=== PATIENT | female | born 1940 | race Caucasian/White ===

== ENCOUNTER → 2017-01-25 | Outpatient (REF) | payer OTHER ==
[~2017-01-25] MED LIST: CARV12.5 PO; LISI20TA3 PO; LOVA40TA PO; MULTCAP8 PO
== END ==
LOC: M SFHCLERA 11:14
PROVIDERS: ATTEND Family Medicine
DX: R31.21 Asymptomatic microscopic hematuria (principal)
CPT/HCPCS: 81001; 87086; 88108; G0463

== ENCOUNTER → 2017-02-12 | Outpatient (CLI) | payer OTHER ==
[2017-02-12 13:30] LABS: ANION GAP 7 MEQ/L (8-16); BLOOD UREA NITROGEN 24 MG/DL (7-18); CALCIUM LEVEL 8.8 MG/DL (8.8-10.2); CARBON DIOXIDE LEVEL 32 MEQ/L (21-32); CHLORIDE LEVEL 102 MEQ/L (98-107); CREATININE FOR GFR 0.92 MG/DL (0.55-1.02); GLOMERULAR FILTRATION RATE > 60.0 (>39); GLUCOSE, FASTING 110 MG/DL (83-110); POTASSIUM SERUM 4.2 MEQ/L (3.5-5.1); SODIUM LEVEL 141 MEQ/L (136-145)
== END ==
LOC: M SMT 10:38
PROVIDERS: ATTEND Specialist
DX: R31.21 Asymptomatic microscopic hematuria (principal)
CPT/HCPCS: 36415; 80048; G0463

== ENCOUNTER → 2017-03-17 | Outpatient (CLI) | payer OTHER ==
[~2017-03-17] MED LIST changes: +ISOVUE-370 76% 100ML VIAL (Q9967) As Ordered ONE
--- NOTE | 2017-03-19 19:43 | REP ---
CT ABDOMEN AND PELVIS: REASON: Asymptomatic microscopic hematuria. COMPARISON: 02/27/2014 which showed no abnormalities. An incidental 5 mm sized cyst was seen in lower pole of the right kidney. CONTRAST UTILIZED: 100 mL [id number]. The examination is dated 03/17/2017, obtained at 8 a.m., however, it has been brought to my attention for the first time for interpretation today at this time. The lung bases are clear and unchanged. The precontrast enhanced portion of the exam again shows hepatic and splenic densities to be within normal limits. There is no nephroureterolithiasis, hydronephrosis, or hydroureter. There are no choleliths. There are no urinary bladder calcifications. Heavy calcific atherosclerotic changes are seen in the abdominal aorta status quo. The contrast enhanced portion of the examination shows a focal area of low density in the posterior segment of the right lobe of the liver medially which measures 1.4 cm and has increased in size from the prior exam when it measured 9 mm. It is seen only on the arterial phase imaging. The spleen, pancreas, adrenal glands, and kidneys are unchanged remaining within normal limits. There is a tiny simple right renal cyst status quo. The abdominal aorta and paraaortic regions are essentially unchanged. There is no adenopathy. There is no free fluid or free air in the abdomen. The bowel loops and their mesenteries are within normal limits. CT PELVIS: There is no free fluid or free air. There is no mass or adenopathy. There are bilateral pelvic phleboliths. Bone window technique throughout the examination shows spinal and hip degenerative changes status quo. IMPRESSION: 1. Enlarging low density lesion seen in the posterior segment of the right lobe of the liver as described above of uncertainly etiology. This is not a simple cyst. Pre- and post- gadolinium enhanced hepatic MRI is recommended. 2. Other findings as described above. Signed by Rober Barron DO 03/19/2017 07:51 P
== END ==
LOC: M RAD 07:42
PROVIDERS: ATTEND Specialist
DX: R31.21 Asymptomatic microscopic hematuria (principal)
CPT/HCPCS: 74178; Q9967

== ENCOUNTER → 2017-04-14 | Outpatient (CLI) | payer OTHER ==
[~2017-04-14] MED LIST changes: -ISOVUE-370 76% 100ML VIAL (Q9967) As Ordered ONE; +LIDOCAINE 1% MDV 20ML VIAL As Ordered ONE
--- NOTE | 2017-04-14 22:05 | REP ---
Clinical: Liver lesion. Technique: Gunderson scale and color evaluation using curved array transducer. Findings: Directed ultrasound examination in conjunction with recent CT for comparison demonstrates a 1.6 x 1.0 x 1.2 cm hemangioma in the medial posterior aspect of the right lobe. Impression: Lesion on CT corresponds to hemangioma and requires no further evaluation. Signed by Pedro Blas MD 04/14/2017 09:56 P
== END ==
LOC: M RADPRO 07:47
PROVIDERS: ATTEND Family Medicine
DX: K76.89 Other specified diseases of liver (principal)

== ENCOUNTER → 2017-07-12 | Outpatient (CLI) | payer OTHER ==
[~2017-07-12] MED LIST changes: -LIDOCAINE 1% MDV 20ML VIAL As Ordered ONE
--- NOTE | 2017-07-12 12:06 | REPMRS ---
Patient History The patient states she had a clinical breast exam in Patient is postmenopausal. No known family history of cancer. Digital Woman Screen Mammo: July 12, 2017 - Exam #: [id number] Bilateral CC and MLO view(s) were taken. Technologist: Zenaida Chaudhry, Technologist Prior study comparison: September 12, 2015, digital woman screen mammo performed at [facility] to [facility]. February 08, 2015, digital woman screen mammo performed at [facility] to [facility]. December 03, 2010, bilateral digital woman screen mammo performed at [facility] to [facility]. FINDINGS: There are scattered fibroglandular densities. There has been no change in the appearance of the mammogram from the prior studies. There is a mild amount of scattered fibroglandular density which is fairly symmetric. There is no interval development of dominant mass, architectural distortion, or clustered microcalcification suggestive of malignancy. ASSESSMENT: BI-RADS/ACR category 1 mammogram. Negative. Recommendation Routine screening mammogram in 1 year (for women over age 40). This mammogram was interpreted with the aid of an FDA-approved computer-aided dectection system. Electronically Signed By: Amauri Ontiveros MD 07/12/17 0027
== END ==
LOC: M WHC 08:42
PROVIDERS: ATTEND Nurse Practitioner Family
DX: Z12.31 Encounter for screening mammogram for malignant neoplasm of breast (principal); Z78.0 Asymptomatic menopausal state
CPT/HCPCS: G0202; G0463

== ENCOUNTER → 2017-09-08 | Outpatient (CLI) | payer OTHER ==
--- NOTE | 2017-09-08 10:55 | REP ---
LEFT SHOULDER SERIES: Four views of the left shoulder are performed. There is no acute fracture or dislocation. There is moderate narrowing and spurring at the acromioclavicular and glenohumeral joints with mild subchondral sclerosis. IMPRESSION: Moderate degenerative changes. Signed by Asim Gunderson MD 09/08/2017 04:42 P
== END ==
LOC: M LRY 10:16
PROVIDERS: ATTEND Family Medicine
DX: M19.012 Primary osteoarthritis, left shoulder (principal); G89.29 Other chronic pain
CPT/HCPCS: 73030; G0463

== ENCOUNTER → 2017-12-20 | Outpatient (REF) | payer OTHER ==
[2017-12-20 14:37] LABS: HEMATOCRIT 35.9 % (36.0-47.0); HEMOGLOBIN 11.7 g/dl (12.0-16.0); MEAN CORPUSCULAR HEMOGLOBIN 28.5 pg (27.0-33.0); MEAN CORPUSCULAR HGB CONC 32.6 g/dl (32.0-36.5); MEAN CORPUSCULAR VOLUME 87.3 fl (80.0-96.0); PLATELET COUNT, AUTOMATED 239 10^3/uL (150-450); RED BLOOD COUNT 4.11 10^6/uL (4.00-5.40); RED CELL DISTRIBUTION WIDTH 14.1 % (11.5-14.5); WHITE BLOOD COUNT 7.4 10^3/uL (4.0-10.0)
[2017-12-20 14:53] LABS: ESTIMATED AVERAGE GLUCOSE 111 MG/DL (60-110); HEMOGLOBIN A1c 5.5 %
[2017-12-20 14:55] LABS: ALBUMIN 3.7 GM/DL (3.2-5.2); ALBUMIN/GLOBULIN RATIO 1.23 (1.00-1.93); ALKALINE PHOSPHATASE 62 U/L (45-117); ALT/SGPT 19 U/L (12-78); ANION GAP 6 MEQ/L (8-16); AST/SGOT 15 U/L (7-37); BILIRUBIN,TOTAL 0.3 MG/DL (0.2-1.0); BLOOD UREA NITROGEN 20 MG/DL (7-18); CARBON DIOXIDE LEVEL 32 MEQ/L (21-32); CHLORIDE LEVEL 102 MEQ/L (98-107); CHOLESTEROL LEVEL 218 MG/DL (<200); CHOLESTEROL RISK RATIO 4.113 (<5); CREATININE FOR GFR 0.88 MG/DL (0.55-1.30); GLOMERULAR FILTRATION RATE > 60.0 (>39); GLUCOSE, FASTING 94 MG/DL (70-100); HDL CHOLESTEROL 53 MG/DL (>40); LDL CHOLESTEROL 128.4 MG/DL (<100); NON-HDL-C 165 MG/DL; POTASSIUM SERUM 3.7 MEQ/L (3.5-5.1); SODIUM LEVEL 140 MEQ/L (136-145); TOTAL PROTEIN 6.7 GM/DL (6.4-8.2); TRIGLYCERIDES LEVEL 183 MG/DL (<150)
[2017-12-20 15:07] LABS: CREATININE, URINE 36.5 MG/DL; MALB URINE SIEMENS 10.6 MG/L
== END ==
LOC: M SFHCLERA 10:42
DX: I10 Essential (primary) hypertension (principal); Z79.82 Long term (current) use of aspirin; Z79.899 Other long term (current) drug therapy
CPT/HCPCS: 84443

== ENCOUNTER 2018-03-04 06:48 | Day surgery (SDC) | payer OTHER ==
[2018-03-04] MEDS: NS 1,000 ML IV (07:45)
[2018-03-04] MEDS ORDERED: LIDOCAINE 2% INJ 100 MG/5 ML SDV (FOR ANES.) As Ordered (08:49)
[2018-03-04] MEDS ORDERED: PROPOFOL 200 MG/20 ML VIAL As Ordered (08:49)
== END 2018-03-04 09:37 | disposition home or self-care (01) ==
LOC: M OPP 06:48
DX: Z12.11 Encounter for screening for malignant neoplasm of colon (principal); K57.30 Diverticulosis of large intestine without perforation or abscess without bleeding; K64.8 Other hemorrhoids; I10 Essential (primary) hypertension; E78.00 Pure hypercholesterolemia, unspecified; K21.9 Gastro-esophageal reflux disease without esophagitis; K59.00 Constipation, unspecified; J45.909 Unspecified asthma, uncomplicated; M19.011 Primary osteoarthritis, right shoulder; M19.012 Primary osteoarthritis, left shoulder; Z79.82 Long term (current) use of aspirin; Z79.899 Other long term (current) drug therapy; Z88.0 Allergy status to penicillin; Z98.41 Cataract extraction status, right eye; Z98.42 Cataract extraction status, left eye; Z90.710 Acquired absence of both cervix and uterus; Z90.89 Acquired absence of other organs
CPT/HCPCS: G0121

== ENCOUNTER → 2018-06-14 | Outpatient (REF) | payer OTHER ==
[2018-06-14 11:43] LABS: BASO # 0.1 10^3/uL (0.0-0.2); BASO % 0.8 % (0.0-1.0); EOS # 0.2 10^3/uL (0.0-0.50); EOS % 2.5 % (0.0-3.0); HEMATOCRIT 33.3 % (36.0-47.0); HEMOGLOBIN 10.9 g/dl (12.0-15.5); IMMATURE GRANULOCYTE % 0.3 % (0-3.0); LYMPH % 25.6 % (24.0-44.0); MEAN CORPUSCULAR HEMOGLOBIN 29.1 pg (27.0-33.0); MEAN CORPUSCULAR HGB CONC 32.7 g/dl (32.0-36.5); MONO # 0.7 10^3/uL (0.0-0.8); MONO % 8.8 % (0.0-5.0); PLATELET COUNT, AUTOMATED 264 10^3/uL (150-450); RED BLOOD COUNT 3.74 10^6/uL (4.00-5.40); RED CELL DISTRIBUTION WIDTH 13.7 % (11.5-14.5)
[2018-06-14 12:04] LABS: ESTIMATED AVERAGE GLUCOSE 120 MG/DL (60-110); HEMOGLOBIN A1c 5.8 %
[2018-06-14 12:35] LABS: ALBUMIN 3.4 GM/DL (3.2-5.2); ALBUMIN/GLOBULIN RATIO 1.03 (1.00-1.93); ALKALINE PHOSPHATASE 62 U/L (45-117); ALT/SGPT 18 U/L (12-78); ANION GAP 9 MEQ/L (8-16); AST/SGOT 14 U/L (7-37); BILIRUBIN,TOTAL 0.4 MG/DL (0.2-1.0); BLOOD UREA NITROGEN 25 MG/DL (7-18); CALCIUM LEVEL 8.6 MG/DL (8.8-10.2); CARBON DIOXIDE LEVEL 31 MEQ/L (21-32); CHLORIDE LEVEL 104 MEQ/L (98-107); CHOLESTEROL LEVEL 163 MG/DL (<200); CREATININE FOR GFR 1.25 MG/DL (0.55-1.30); GLOMERULAR FILTRATION RATE 44.2 (>39); GLUCOSE, FASTING 93 MG/DL (70-100); HDL CHOLESTEROL 50 MG/DL (>40); LDL CHOLESTEROL 83.8 MG/DL (<100); NON-HDL-C 113 MG/DL; POTASSIUM SERUM 3.9 MEQ/L (3.5-5.1); SODIUM LEVEL 144 MEQ/L (136-145); TOTAL PROTEIN 6.7 GM/DL (6.4-8.2); TRIGLYCERIDES LEVEL 146 MG/DL (<150)
== END ==
LOC: M SFHCLERA 10:07
DX: I10 Essential (primary) hypertension (principal); Z79.899 Other long term (current) drug therapy; Z23 Encounter for immunization
CPT/HCPCS: 84443

== ENCOUNTER → 2018-12-12 | Outpatient (REF) | payer MEDICARE ==
[~2018-12-12] MED LIST changes: +AMLO2.5T3; +ASPI1TAB PO; +CALC1TAB26 PO; +CRANCAP10 PO; +GARL1000 PO; +IRON27TA2 PO; +POTA99TA PO; +VENTAER INH; +VITA100072 PO
[2018-12-12 12:39] LABS: CALCIUM LEVEL 8.7 MG/DL (8.8-10.2); CREATININE FOR GFR 0.97 MG/DL (0.55-1.30); GLOMERULAR FILTRATION RATE 59.3 (>39); POTASSIUM SERUM 3.9 MEQ/L (3.5-5.1)
[2018-12-12 12:43] LABS: BASO # 0.1 10^3/uL (0.0-0.2); BASO % 0.8 % (0.0-1.0); EOS # 0.2 10^3/uL (0.0-0.50); EOS % 2.2 % (0.0-3.0); HEMATOCRIT 33.4 % (36.0-47.0); HEMOGLOBIN 11.1 g/dl (12.0-15.5); LYMPH # 1.7 10^3/uL (1.5-4.5); MEAN CORPUSCULAR HEMOGLOBIN 29.7 pg (27.0-33.0); MEAN CORPUSCULAR HGB CONC 33.2 g/dl (32.0-36.5); MEAN CORPUSCULAR VOLUME 89.3 fl (80.0-96.0); MONO # 0.6 10^3/uL (0.0-0.8); MONO % 7.5 % (0.0-5.0); NEUTROPHILS # 4.8 10^3/uL (1.8-7.7); NEUTROPHILS % 66.2 % (36.0-66.0); PLATELET COUNT, AUTOMATED 202 10^3/uL (150-450); RED BLOOD COUNT 3.74 10^6/uL (4.00-5.40); WHITE BLOOD COUNT 7.3 10^3/uL (4.0-10.0)
== END ==
LOC: M SFHCLERA 09:43
PROVIDERS: ATTEND Family Medicine
DX: I10 Essential (primary) hypertension (principal); D64.9 Anemia, unspecified
CPT/HCPCS: 80048; 85025; 90682; G0008; G0463

== ENCOUNTER → 2019-01-12 | Outpatient (CLI) | payer MEDICARE ==
--- NOTE | 2019-01-12 10:21 | REP ---
Clinical: Cough. Technique: PA and lateral. Comparison: 06/18/2016. Findings: Mediastinum and cardiac silhouette are stable. The lung millan demonstrate chronic interstitial changes. Superimposed left infrahilar and right basilar atelectasis are suspected and suggest bronchitis. No effusion. No pneumothorax. Skeletal structures demonstrate age-related changes. Impression: Subtle increased opacities involving the left infrahilar and right basilar regions suggests bronchitis. Electronically Signed by Pedro Blas MD 01/12/2019 10:12 A
== END ==
LOC: M LRY 09:47
PROVIDERS: ATTEND Nurse Practitioner Family
DX: R91.8 Other nonspecific abnormal finding of lung field (principal); R05 Cough

== ENCOUNTER → 2019-02-02 | Outpatient (REF) | payer MEDICARE ==
[~2019-02-02] MED LIST changes: -ASPI1TAB PO; +ASPI81TA26 PO; +VITA100018 PO; -VITA100072 PO
[2019-02-02 20:29] LABS: CALCIUM LEVEL 8.6 MG/DL (8.8-10.2); CREATININE FOR GFR 1.34 MG/DL (0.55-1.30); GLOMERULAR FILTRATION RATE 40.8 (>39); POTASSIUM SERUM 3.9 MEQ/L (3.5-5.1)
[2019-02-02 20:34] LABS: BASO # 0.1 10^3/uL (0.0-0.2); BASO % 0.7 % (0.0-1.0); EOS # 0.2 10^3/uL (0.0-0.50); EOS % 2.1 % (0.0-3.0); HEMATOCRIT 32.5 % (36.0-47.0); HEMOGLOBIN 10.4 g/dl (12.0-15.5); LYMPH # 2.7 10^3/uL (1.5-4.5); LYMPH % 29.4 % (24.0-44.0); MEAN CORPUSCULAR HEMOGLOBIN 28.8 pg (27.0-33.0); MONO # 0.7 10^3/uL (0.0-0.8); MONO % 7.4 % (0.0-5.0); NEUTROPHILS # 5.4 10^3/uL (1.8-7.7); NEUTROPHILS % 60.2 % (36.0-66.0); PLATELET COUNT, AUTOMATED 250 10^3/uL (150-450); RED BLOOD COUNT 3.61 10^6/uL (4.00-5.40)
== END ==
LOC: M SFHCLERA 14:38
PROVIDERS: ATTEND Family Medicine
DX: I10 Essential (primary) hypertension (principal)
CPT/HCPCS: 80048; 85025; 93005; G0463

== ENCOUNTER → 2019-02-06 | Outpatient (CLI) | payer MEDICARE ==
[~2019-02-06] MED LIST changes: +ASPI1TAB PO; -ASPI81TA26 PO; -VITA100018 PO; +VITA100072 PO
--- NOTE | 2019-02-06 14:37 | REP ---
DUPLEX CAROTID SONOGRAPHY: HISTORY: Hypertension. FINDINGS: Antegrade flow was observed in the left vertebral artery. Some lower velocity antegrade flow was observed in the right vertebral artery. RIGHT CAROTID: The right common carotid artery shows mixed plaquing. There is moderate mixed plaquing in the bulb and proximal ICA. Elevated systolic and diastolic flow velocities are seen in the right ICA on color Doppler interrogation. VELOCITY CHART RIGHT CAROTID: PSV EDV Right CCA 74 cm/s Right ICA 236 cm/s 81 cm/s Right ECA 96 cm/s Right ICA/CCA ratio elevated 3.2 IMPRESSION: Doppler findings consistent with 80 - 99% category narrowing in the right ICA by Doppler velocity criteria. Dampened flow in the right ECA. LEFT CAROTID: Left common carotid artery shows some mild mixed plaquing. Mild mixed plaquing is seen in the bulb and proximal ICA. Incidental note is made of a 1.1 cm hypoechoic complex left thyroid nodule. VELOCITY CHART LEFT CAROTID: PSV EDV Left CCA 68 cm/s Left ICA 97 cm/s 24 cm/s Left ECA 64 cm/s Left ICA/CCA ratio normal 1.4. IMPRESSION: 16-49% category narrowing the left ICA by Doppler velocity criteria. 1.1 cm left thyroid nodule. Electronically Signed by Delvin Ontiveros MD 02/06/2019 02:50 P
== END ==
LOC: M RAD 11:25
PROVIDERS: ATTEND Family Medicine
DX: I65.23 Occlusion and stenosis of bilateral carotid arteries (principal); E04.1 Nontoxic single thyroid nodule; I10 Essential (primary) hypertension

== ENCOUNTER → 2019-02-10 | Outpatient (REF) | payer MEDICARE ==
[2019-02-10 17:11] LABS: FREE T4 1.11 NG/DL (0.76-1.46); THYROID STIMULATING HORMONE 1.8 uIU/ML (0.358-3.740)
== END ==
LOC: M SFHCLERA 13:44
PROVIDERS: ATTEND Family Medicine
DX: E04.1 Nontoxic single thyroid nodule (principal)

== ENCOUNTER → 2019-03-10 | Outpatient (REF) | payer MEDICARE ==
[~2019-03-10] MED LIST changes: -ASPI1TAB PO; +ASPI81TA26 PO; +VITA100018 PO; -VITA100072 PO
== END ==
LOC: M SFHCLERA 09:58
PROVIDERS: ATTEND Family Medicine
DX: E78.5 Hyperlipidemia, unspecified (principal); R79.89 Other specified abnormal findings of blood chemistry; D64.9 Anemia, unspecified

== ENCOUNTER → 2019-03-10 | Outpatient (REF) | payer MEDICARE ==
[2019-03-10 11:33] LABS: BASO # 0.1 10^3/uL (0.0-0.2); BASO % 0.8 % (0.0-1.0); EOS # 0.2 10^3/uL (0.0-0.50); EOS % 2.7 % (0.0-3.0); HEMATOCRIT 32.5 % (36.0-47.0); HEMOGLOBIN 10.6 g/dl (12.0-15.5); LYMPH # 1.8 10^3/uL (1.5-4.5); LYMPH % 27.4 % (24.0-44.0); MEAN CORPUSCULAR HEMOGLOBIN 29.6 pg (27.0-33.0); MEAN CORPUSCULAR HGB CONC 32.6 g/dl (32.0-36.5); MEAN CORPUSCULAR VOLUME 90.8 fl (80.0-96.0); MONO # 0.6 10^3/uL (0.0-0.8); MONO % 8.7 % (0.0-5.0); NEUTROPHILS # 3.9 10^3/uL (1.8-7.7); NEUTROPHILS % 60.1 % (36.0-66.0); PLATELET COUNT, AUTOMATED 203 10^3/uL (150-450); RED BLOOD COUNT 3.58 10^6/uL (4.00-5.40); WHITE BLOOD COUNT 6.6 10^3/uL (4.0-10.0)
[2019-03-10 12:17] LABS: CHOLESTEROL RISK RATIO 2.903 (<5); CREATININE FOR GFR 1.05 MG/DL (0.55-1.30); GLOMERULAR FILTRATION RATE 54.1 (>39); PERCENT SATURATION 17.1 % (13.2-45.0); POTASSIUM SERUM 3.7 MEQ/L (3.5-5.1)
== END ==
LOC: M SFHCLERA 09:58
PROVIDERS: ATTEND Family Medicine
DX: E78.5 Hyperlipidemia, unspecified (principal); R79.89 Other specified abnormal findings of blood chemistry; D64.9 Anemia, unspecified

== ENCOUNTER → 2019-06-12 | Outpatient (REF) | payer MEDICARE ==
[2019-06-12 17:08] LABS: BASO # 0.1 10^3/uL (0.0-0.2); BASO % 0.7 % (0.0-1.0); EOS # 0.2 10^3/uL (0.0-0.50); EOS % 2.6 % (0.0-3.0); HEMATOCRIT 34.6 % (36.0-47.0); LYMPH # 2.1 10^3/uL (1.5-4.5); LYMPH % 27.5 % (24.0-44.0); MEAN CORPUSCULAR HEMOGLOBIN 28.7 pg (27.0-33.0); MEAN CORPUSCULAR HGB CONC 31.8 g/dl (32.0-36.5); MEAN CORPUSCULAR VOLUME 90.3 fl (80.0-96.0); MONO # 0.7 10^3/uL (0.0-0.8); MONO % 9.1 % (0.0-5.0); NEUTROPHILS # 4.6 10^3/uL (1.8-7.7); NEUTROPHILS % 59.7 % (36.0-66.0); PLATELET COUNT, AUTOMATED 203 10^3/uL (150-450); RED BLOOD COUNT 3.83 10^6/uL (4.00-5.40); WHITE BLOOD COUNT 7.7 10^3/uL (4.0-10.0)
[2019-06-12 17:10] LABS: CALCIUM LEVEL 8.9 MG/DL (8.8-10.2); CREATININE FOR GFR 0.98 MG/DL (0.55-1.30); GLOMERULAR FILTRATION RATE 58.4 (>39); POTASSIUM SERUM 3.8 MEQ/L (3.5-5.1)
== END ==
LOC: M SFHCLERA 10:43
PROVIDERS: ATTEND Family Medicine
DX: I10 Essential (primary) hypertension (principal)
CPT/HCPCS: 80048; 85025; G0463

== ENCOUNTER 2019-07-05 05:58 | Observation (INO) | payer MEDICARE ==
--- NOTE | 2019-07-04 23:37 | HPE ---
DATE OF SCHEDULED ADMISSION: 07/05/2019 This is a preoperative history and physical. CHIEF COMPLAINT: "My carotid is blocked." HISTORY OF THE PRESENT ILLNESS: Ms King is a very pleasant 79-year-old patient who underwent a carotid duplex and was found to have a significant right internal carotid artery stenosis. Today we discussed the natural history of carotid disease, symptoms of transient ischemic attack (TIA) and stroke, best medical management, and surgical interventions to be performed if needed. We reviewed the patient's carotid duplex in clinic today. Her left internal carotid artery is less than 50% stenosis, with a peak systolic velocity/end diastolic velocity (PSV/EDV) of 97/24, and both vertebrals are antegrade. Although the report says that the patient has an 80-99% stenosis of her right internal carotid artery, I do not believe she meets criteria for this. Her peak systolic velocity over end diastolic velocity in the right internal carotid artery is 236/81, which does put her in the greater than 70% range, but factoring this in with her internal carotid artery/common carotid artery (ICA/CCA) ratio of 3.2, puts her in the 50-70% range. Based on both criteria, I think she is likely about 70-75% stenotic on the right. This still meets criteria to discuss right carotid endarterectomy. Currently, the patient is asymptomatic. She denies TIA or stroke symptoms We then discussed the risks, benefits, and alternatives to carotid endarterectomy. After extensive counseling, the patient is agreeable to proceed with right carotid endarterectomy and informed consent was obtained. She is taking aspirin and statin, and we will add Plavix, which she should continue for 30 days perioperatively. All questions were answered. PAST MEDICAL HISTORY: Hyperlipidemia, hypertension, chronic obstructive pulmonary disease (COPD). PAST SURGICAL HISTORY: Hysterectomy. FAMILY HISTORY: Coronary artery disease and cancer. SOCIAL HISTORY: Patient denies tobacco, alcohol, or illicit drug use. Patient has never smoked cigarettes. REVIEW OF SYSTEMS: Constitutional: Denies chills, fever, weight gain and weight loss. Eyes: Denies new vision changes. Ears, Nose and Throat: Denies hearing loss, congestion, or dysphagia. Cardiovascular: Denies chest pain and palpitations. Respiratory: Reports shortness of breath on exertion, but denies cough and hemoptysis. Gastrointestinal (GI): Denies abdominal pain, constipation, diarrhea, nausea and vomiting. Musculoskeletal: Denies myalgia, pain and trouble walking. Skin: Denies skin cancer, rash and wound. Neurologic: Denies focal deficit, headache and seizures. Psychiatric: Denies anxiety and depression. Endocrine: Denies diabetes, hyperthyroidism and hypothyroidism. Hematology and Lymph: Reports easy bruising but denies anemia. PHYSICAL EXAMINATION: Blood pressure 134/68, heart rate 56, body mass index (BMI) 25. Constitutional: Appears healthy and well developed. No signs of distress present. Head and Face: Normal on inspection. Ears, Nose and Throat: Tympanic membranes intact. External nose within normal limits. Poor dentition. Neck: Supple, right carotid bruit present, no left carotid bruit auscultated. Respiratory: No wheezing, clear to auscultation bilaterally. Cardiovascular: Rate is regular, rhythm is regular. Abdomen: Bowel sounds are positive. Abdomen is soft, nontender, nondistended. Lymphatics: No palpable or visible regional lymphadenopathy. Musculoskeletal: Gait is steady, distal pulses 2+ dorsal pedis (DP)/posterior tibial (PT). Skin: No rashes or lesions. Neurologic: Alert and oriented times three, moves all extremities equally. No focal neurologic deficits noted. Psychiatric: Pleasant and cooperative. IMAGING: Carotid duplex was reviewed with the patient in clinic today. Please see history of the present illness for relevant interpretation. All questions were answered. ASSESSMENT AND PLAN: Ms. King is a very pleasant 79-year-old patient with significant right carotid stenosis. 1. Will proceed with right carotid endarterectomy. Patient should continue aspirin and statin, and we will prescribe Plavix for 30 days perioperatively. She should not hold the Plavix or aspirin prior to surgery. 2. Patient counseled about TIA and CVA symptoms to watch for, and she should come to the emergency room if any new concerning symptoms occur. We appreciate the opportunity to participate in the care of this patient.
[~2019-07-05] VITALS: Ht 149.9 cm; Wt 59.5 kg
[2019-07-05] VITALS (15 sets, daily range): BP systolic 100–169; BP diastolic 40–78
[~2019-07-05 05:58] MED LIST changes: -AMLO2.5T3; +AMLO2.5T3 PO; +HM P99TA PO; +LISI20TA20 PO; -LISI20TA3 PO
[2019-07-05] MEDS ORDERED: THROMBIN SOLN 20,000 UNITS KIT As Ordered ONE (06:39)
[2019-07-05] MEDS ORDERED: LIDOCAINE 1% SDV INJ 30 ML VIAL As Ordered ONE (06:39)
[2019-07-05] MEDS ORDERED: HEPARIN SOD (PORCINE) 5000 UNITS/ML VIAL As Ordered ONE ×3 (06:40→09:09)
[2019-07-05] MEDS ORDERED: ROCURONIUM BROMIDE 50 MG/5 ML VIAL As Ordered ONE (07:00)
[2019-07-05] MEDS ORDERED: LIDOCAINE 2% INJ 100 MG/5 ML SDV (FOR ANES.) As Ordered ONE (07:00)
[2019-07-05] MEDS ORDERED: LR 1,000 ML IV ONE (07:00)
[2019-07-05] MEDS ORDERED: SUGAMMADEX SODIUM 500 MG/5 ML VIAL (BRIDION) As Ordered ONE (07:00)
[2019-07-05] MEDS ORDERED: PROPOFOL 200 MG/20 ML VIAL As Ordered ONE (07:00)
[2019-07-05] MEDS ORDERED: VANCOMYCIN HCL 1,000 MG, VIAL MATE ADAPTER 1 EACH in D5W 250 ML IV ONE (07:00)
[2019-07-05] MEDS ORDERED: ONDANSETRON 4MG/2ML VIAL (J2405) As Ordered ONE (07:01)
[2019-07-05] MEDS ORDERED: dexameTHASONE 4 MG/ML 1ML VIAL (J1100) As Ordered ONE (07:01)
[2019-07-05] MEDS ORDERED: MIDAZOLAM INJ 2 MG/2 ML VIAL (J2250) As Ordered ONE (07:02)
[2019-07-05] MEDS ORDERED: fentaNYL 250 MCG/5 ML INJECTION (J3010) As Ordered ONE (07:02)
[2019-07-05] MEDS ORDERED: LABETALOL HCL 100 MG/20 ML VIAL As Ordered ONE (10:20)
[2019-07-05] MEDS ORDERED: ACETAMINOPHEN TAB 650MG DOSE (2X325MG) PO PRN (10:30)
[2019-07-05] MEDS ORDERED: ONDANSETRON 4MG/2ML VIAL (J2405) IV PRN ×2 (10:30→11:00)
[2019-07-05] MEDS ORDERED: PERCOCET 5MG/325MG TAB PO PRN (10:30)
--- NOTE | 2019-07-05 10:38 | ROOPDOC ---
[facility] Report Of Operation Report of Operation DATE OF PROCEDURE: 07/05/19 PREPROCEDURE DIAGNOSES: Right carotid stenosis, asymptomatic POSTPROCEDURE DIAGNOSES: Same PROCEDURE: Right carotid endarterectomy SURGEON: Giselle Cyr MD ANESTHESIA: GETA and local INDICATION FOR PROCEDURE: Ms. King is very pleasant 79-year-old patient with approximately 70-75% right internal carotid artery stenosis, asymptomatic. We discussed the risks, benefits, and alternatives to a right carotid endarterectomy, and the patient was agreeable to proceed. We had an extensive conversation with her daughter preoperatively as well. All questions were answered and informed consent was obtained. PROCEDURE: The patient was brought to the operating room in stable condition. General anesthesia and antibiotics were administered without complication. Her right neck and chest were prepped and draped in a sterile fashion. A timeout was performed. An oblique incision was made over the anterior border of the sternocleidomastoid and carried down through the subcutaneous tissue and platysma with Bovie cautery. The external jugular vein was suture ligated and divided. Dissection continued along the anterior border of the sternocleidomastoid and the jugular vein was skeletonized proximally and distally along its medial edge within her incision. There were multiple small branches near the facial vein, and all were suture ligated and divided. We then dissected the common carotid artery proximally and distally in a vessel loop was placed. We proceeded to dissect distally over the external carotid artery and a vessel loop was placed around the superior thyroid artery and the external carotid artery. The hypoglossal nerve was identified and care was taken not to manipulate it. 5000 units of heparin was given by anesthesia and allowed to circulate. We continued our dissection distally over the internal carotid artery until we were well above the palpable plaque. A vessel loop was placed. We then secured R Vesseloops an 11 blade was used to make an arteriotomy on the common carotid artery. This was extended distally over the internal carotid artery above the area of plaque with a pot scissors. An 8 [place] shunt was flushed with heparinized saline and the distal end was inserted into the internal carotid artery with good backbleeding in the vessel loop with resecured. We then placed the proximal and into the common carotid artery and the vessel loop with resecured. Flow was confirmed through the shunt with a Doppler. The blood pressure was maintained between 140 and 160 mmHg while shunted. We then used a plaque elevator to elevate the plaque in the common carotid artery and it was transected at the distal edge of her incision. We then feathered about the plaque towards the external carotid artery which is a vertigo to give us a good endarterectomy plane. We then feathered out the plaque in the internal carotid artery which gave us a good endpoint. We then spent several minutes removing any loose intima and making sure the endarterectomy plane was clean without debris. We flushed copiously with heparinized saline. Following this, a bovine carotid patch was fashion to fit our arteriotomy and anastomosis in a running fashion with 5-0 Prolene hemostatic suture. Before the final sutures are placed, we again irrigated with heparinized saline, then removed the shunt from the internal carotid artery and allowed backbleeding, and resecured R Vesseloops. We then removed the shunt from the common carotid artery and flushed the external carotid artery, superior thyroid artery and common carotid artery. We irrigated with copious amounts of heparinized saline and our final sutures are placed in the patch. Following this, flow was restored first through the external carotid artery and superior thyroid, then the common carotid artery, then after 10 beats of the heart flow was restored to the internal carotid artery. There was a small tear in the internal carotid artery just distal to the distal end of her patch, and a 6-0 Prolene suture and a small piece of the patch used as a pledget were placed in a use stitch fashion with good hemostasis. Following this, Surgicel and gentle pressure were used for hemostasis for approximately 2 minutes. We then irrigated with copious amounts of normal saline. A small incision was made proximal to her incision on the neck and a 15 ANGEL drain was placed through this into our incision and secured with a nylon suture. The drain was placed to bulb suction. We then approximated the deep tissue with a few interrupted Vicryl sutures, and reapproximated the platysmal layer with a running Vicryl suture. The skin was closed with running subcuticular Monocryl suture. Steri-Strips and Mastisol replace the length of the wound, and a drain sponge was placed around the drain. The patient was then allowed to awaken from anesthesia and prior to leaving the operating room she was able to move all 4 extremities, stick out her tongue to command, and open her eyes. We will continue to follow her neuro exam in recovery. ESTIMATED BLOOD LOSS: Approximately 200 mL COMPLICATIONS: None DRAINS: Right neck ANGEL drain SPECIMEN: Plaque right carotid sent for pathology PLAN: We will keep the patient in ICU overnight for neurovascular checks and close blood pressure monitoring. Goal blood pressure is greater than 90 mmHg systolic and less than 140 mmHg systolic. It is okay for her to get out of bed. We need to monitor her right neck closely for hematoma. We will continue aspirin Plavix and statin in the perioperative period. If she is doing well in the morning, hemodynamically stable, and is back to her baseline level of activity, we will plan to discharge her home. GISELLE CYR MD Jul 05, 2019 10:38
[2019-07-05] MEDS ORDERED: ALBUTEROL 90 MCG/ACT 8GM HFA INHALER INH PRN (10:45)
[2019-07-05] MEDS ORDERED: hydrALAZINE INJ 20 MG/ML VIAL IV PRN (10:45)
[2019-07-05] MEDS ORDERED: LR 1,000 ML IV SCH (11:00)
[2019-07-05] MEDS ORDERED: oxyCODONE 5MG TAB PO PRN (11:00)
[2019-07-05] MEDS ORDERED: fentaNYL 100 MCG/2 ML INJECTION (J3010) IV PRN (11:00)
[2019-07-05] MEDS: CARVedilol 12.5 MG TAB PO SCH ×2 (12:21→20:57)
--- NOTE | 2019-07-05 14:24 | HPEPDOC ---
General Date of Admission Jul 05, 2019 at 05:58 Date of Service: Jul 05, [address] Cyr of Vascular Surgery Chief Complaint The patient is a 79-year-old female admitted with a reason for visit of Carotid Stenosis. History of Present Illness 79-year-old female with past medical history of hypertension, dyslipidemia, asthma, and recently found to have right internal carotid artery stenosis was admitted to [facility] following right sided carotid endarterectomy by vascular surgery. The patient denied any stroke or TIA like symptoms in the past. At this time, she states that she is feeling relatively well and denies any complaints of fevers, chills, chest pain, palpitations, abdominal pain, or any nausea/vomiting/diarrhea. The patient will be admitted under the hospitalist service for observation. Home Medications Scheduled Amlodipine Besylate (Amlodipine Besylate) 2.5 Mg Tab, 2.5 MG PO DAILY, (Reported) Aspirin (Aspirin EC) 81 Mg Tab, 81 MG PO DAILY, (Reported) Calcium Carbonate/Vitamin D3 (Calcium 600-Vit D3 800 Tablet) 1 Tab Tab, 1 TAB PO DAILY, (Reported) Carvedilol (Carvedilol) 12.5 Mg Tab, 12.5 MG PO BID, (Reported) Cyanocobalamin (Vitamin B-12) (Vitamin B-12) 1,000 Mcg Tab, 1,000 MCG PO DAILY, (Reported) Ferrous Gluconate (Iron) 27 Mg Tab, 27 MG PO DAILY, (Reported) Garlic (Garlic Oil) 2 Mg Cap, 2 MG PO DAILY, (Reported) Lisinopril/Hydrochlorothiazide (Lisinopril-Hctz 20-25 mg Tab) 1 Tab Tab, 1 TAB PO DAILY, (Reported) Lovastatin (Lovastatin) 40 Mg Tab, 40 MG PO DAILY, (Reported) Potassium Gluconate (Potassium) 99 Mg Tablet, 595 MG PO DAILY, (Reported) Scheduled PRN Albuterol Sulfate (Ventolin Hfa) 108 Mcg/Act Aer, 108 MCG INH Q4HP PRN for SOB/WHEEZING, (Reported) Allergies Coded Allergies: Penicillins (Verified Adverse Reaction, Intermediate, LEG PAIN, 03/20/19) Past Medical History Medical History As noted in HPI. Surgical History History of hysterectomy Social History * Smoker: Denies Alcohol: occationally Drugs: denies Review of Systems Other systems 10 point review of systems negative unless otherwise specified in HPI. Physical Examination General Exam: Positive: Alert, Cooperative, No Acute Distress ENT Exam: Positive: Atraumatic, Mucous membr. moist/pink Neck Exam: Positive: Other (status post right-sided carotid endarterectomy with surgical dressing noted over the incision site. ANGEL drain also noted to be draining serosanguineous fluid.) Chest Exam: Positive: Clear to auscultation, Normal air movement Heart Exam: Positive: Rate Normal, Normal S1, Normal S2 Abdomen Exam: Positive: Soft; Negative: Tenderness Extremity Exam: Negative: Tenderness, Swelling Psych Exam: Positive: Oriented x 3 Vital Signs Vital Signs Date Time Temp Pulse Resp B/P (MAP) Pulse Ox O2 Delivery O2 Flow Rate FiO2 07/05/19 12:30 72 20 158/66 (104) 99 2.0 150/69 (99) 07/05/19 11:45 97.5 Laboratory Data Labs 24H Laboratory Tests 2 07/05/19 08:16: POC pH (Misc Panel) 7.455H, POC Base Excess (Misc Panel) 8.0H, POC Saturated Percent O2 (Misc) 100H, POC pO2 (Misc Panel) 291.0H, POC pCO2 (Misc Panel) 45.3H, POC HCO3 (Misc Panel) 31.8H, POC Glucose (Misc Panel) 137H, POC Sodium (Misc Panel) 140, POC Potassium (Misc Panel) 3.4L, POC Total CO2 (Misc Panel) 33.0H, POC Ionized Calcium (Misc Panel) 4.4L, POC Hemoglobin (Calculated)(Misc) 8.8L, POC Hematocrit (Misc Panel) 26.0L Plan / VTE VTE Prophylaxis Ordered?: Yes Plan Plan Right ICA Stenosis s/p Carotid Endarterectomy Case discussed with Dr. Cyr of Vascular Surgery--We will cont to ASA, Plavix, Statin We will maintain SBP between 90 and 140 as per recommendations Cont Norvasc, Coreg, and PRN Hydralazine ordered for SBP >140 Neurochecks We will cont to monitor the patient Hypertension Systolic blood pressure goals as noted above Continue regimen as ordered Dyslipidemia Continue statin Normocytic anemia No indication for transfusion at this time History of asthma Albuterol when necessary DVT prophylaxis SCDs/TEDs, ambulation encouraged LINCOLN SEE MD Jul 05, 2019 14:24
[2019-07-05] MEDS: CALCIUM/VITAMIN D 500 MG TAB PO SCH (14:28)
[2019-07-05] MEDS: CYANOCOBALAMIN 500 MCG TAB PO SCH (14:29)
--- NOTE | 2019-07-05 17:06 | IPNPDOC ---
Date Seen The patient was seen on 07/05/19. Progress Note Postop check: Pt sitting up eating dinner, no complaints. No trouble with speech or swallowing. Small amount of swelling noted right neck. Some serosanguinous drainage on mid steristrips and 40cc serosanguinous drainage out ANGEL drain since OR. Pt has had good BP control but it is up a bit now while she is eating. RN says otherwise it has been <110 systolic. I do want consistent BP control and asked RN to treat if it stays elevated. Elevated BP makes pt higher risk for R neck bleeding/hematoma. Neuro exam is stable- CN grossly intact, vision grossly intact, speech clear, A&Ox3, MAEE, no focal deficits. She has been OOB to the bathroom- no difficulties with ambulation, no dizziness. No c/o headache. Continue supportive care and possibly d/c in the a.m. if ANGEL output is down, no hematoma R neck, BP stable. Pt and family counseled about plan and all questions answered. VS, I&O, 24H, Fishbone Vital Signs/I&O Vital Signs Date Time Temp Pulse Resp B/P (MAP) Pulse Ox O2 Delivery O2 Flow Rate FiO2 07/05/19 14:00 80 20 126/56 (84) 99 2.0 125/60 (87) 07/05/19 11:45 97.5 Laboratory Data 24H LABS Laboratory Tests 2 07/05/19 08:16: POC pH (Misc Panel) 7.455H, POC Base Excess (Misc Panel) 8.0H, POC Saturated Percent O2 (Misc) 100H, POC pO2 (Misc Panel) 291.0H, POC pCO2 (Misc Panel) 45.3H, POC HCO3 (Misc Panel) 31.8H, POC Glucose (Misc Panel) 137H, POC Sodium (Misc Panel) 140, POC Potassium (Misc Panel) 3.4L, POC Total CO2 (Misc Panel) 33.0H, POC Ionized Calcium (Misc Panel) 4.4L, POC Hemoglobin (Calculated)(Misc) 8.8L, POC Hematocrit (Misc Panel) 26.0L GISELLE LOTT MD Jul 05, 2019 17:06
[2019-07-05] MEDS ORDERED: SIMVASTATIN 40 MG TAB PO SCH (21:00)
[2019-07-06] VITALS (11 sets, daily range): BP systolic 106–170; BP diastolic 44–80
[2019-07-06 04:59] LABS: HEMATOCRIT 31.1 % (36.0-47.0); HEMOGLOBIN 10.3 g/dl (12.0-15.5); MEAN CORPUSCULAR HEMOGLOBIN 30.1 pg (27.0-33.0); MEAN CORPUSCULAR HGB CONC 33.1 g/dl (32.0-36.5); MEAN CORPUSCULAR VOLUME 90.9 fl (80.0-96.0); PLATELET COUNT, AUTOMATED 203 10^3/uL (150-450); RED BLOOD COUNT 3.42 10^6/uL (4.00-5.40); WHITE BLOOD COUNT 17.1 10^3/uL (4.0-10.0)
[2019-07-06 05:23] LABS: CALCIUM LEVEL 8.6 MG/DL (8.8-10.2); GLOMERULAR FILTRATION RATE 57.1 (>39); MAGNESIUM LEVEL 2.3 MG/DL (1.8-2.4); POTASSIUM SERUM 3.9 MEQ/L (3.5-5.1)
[2019-07-06] MEDS: CYANOCOBALAMIN 500 MCG TAB PO SCH (08:43)
[2019-07-06] MEDS: CALCIUM/VITAMIN D 500 MG TAB PO SCH (08:43)
[2019-07-06] MEDS: CARVedilol 12.5 MG TAB PO SCH (08:45)
[2019-07-06] MEDS ORDERED: ASPIRIN 81 MG ENTERIC TAB PO SCH (09:00)
[2019-07-06] MEDS ORDERED: CLOPIDOGREL 75 MG TAB PO SCH (09:00)
[2019-07-06] MEDS ORDERED: hydroCHLOROthiazide 25 MG TAB PO SCH (10:00)
[2019-07-06] MEDS ORDERED: LISINOPRIL 20 MG TAB PO SCH (10:00)
--- NOTE | 2019-07-06 11:08 | IPNPDOC ---
Date Seen The patient was seen on 07/06/19. Progress Note Miss King is very pleasant 79-year-old female postoperative day one status post right carotid endarterectomy for asymptomatic 70-75% right internal carotid artery stenosis. She is doing well today. Her ANGEL drain output has been minimal over the last 12 hours. It is no longer sanguinous, and is serosanguineous. She denies headaches, neck pain, new vision deficits, difficulty with speech or mastication, difficulty with swallowing, difficulty with ambulation, or focal deficits. She says she feels fine, has been eating well, no trouble with urination, up and ambulating without any dizziness or weakness, and feels she is ready to go home. On exam, she has mild swelling over the right neck, appropriate postoperatively, no significant swelling or concerns for large hematoma at this time. She has a little bit of sanguinous drainage on her Steri-Strips but otherwise they're clean dry and intact. The ANGEL drain was removed, and the site was cleaned and dressed with Steri-Strips gauze and paper tape. Cranial nerves and vision are grossly intact with tongue midline. She moves all extremities equally, and has equal motor and sensory in the upper and lower extremities both right and left side. Her gait is steady. Her speech is clear and she is alert and oriented 3. We are pleased with her progress and agree that she is ready for discharge. Discharge instructions: (Patient has a prescription for Plavix at home and will not need a new prescription at discharge.) Continue taking the Plavix that you have at home until it is gone, and then you do not need a refill. Continue aspirin and statin daily. Activity as tolerated, but no strenuous exercise or lifting greater than 10 pounds for 2 weeks. Slowly increase activity as tolerated. Try to rest with head elevated either in a recliner or on several pillows to help minimize swelling right neck. Remove gauze and paper tape from the drain site, but leave Steri-Strips over incision and drain sites intact for 5-7 days. Okay to shower after 24 hours. Make sure the water is not too hot. Recommend ba by shampoo. No heat or styling products until incision is completely healed. Resume preoperative diet and eat plenty of protein to help with wound healing and strength. No driving for 1 week. Follow-up with Dr. Cyr in 1 week to check incision. VS, I&O, 24H, Fishbone Vital Signs/I&O Vital Signs Date Time Temp Pulse Resp B/P (MAP) Pulse Ox O2 Delivery O2 Flow Rate FiO2 07/06/19 09:44 165/65 07/06/19 09:30 72 20 96 07/06/19 07:00 97.5 07/05/19 14:00 2.0 I&O- Last 24 Hours up to 6 AM 07/06/19 06:00 Intake Total 2680 ml Output Total 2475 ml Balance 205 ml Laboratory Data 24H LABS Laboratory Tests 2 07/06/19 04:29: Nucleated Red Blood Cells % (auto) 0.0, Anion Gap 5L, Glomerular Filtration Rate 57.1, Blood Urea Nitrogen 20H, Creatinine 1.00, Sodium Level 140, Potassium Level 3.9, Chloride Level 105, Carbon Dioxide Level 30, Calcium Level 8.6L, Magnesium Level 2.3 CBC/BMP Laboratory Tests 07/06/19 04:29 Red Blood Count 3.42 L, Mean Corpuscular Volume 90.9, Mean Corpuscular He moglobin 30.1, Mean Corpuscular Hemoglobin Concent 33.1, Red Cell Distribution Width 13.7, Calcium Level 8.6 L GISELLE CYR MD Jul 06, 2019 11:08
--- NOTE | 2019-07-06 13:57 | DS.PDOC ---
Discharge Summary General Date of Admission Jul 05, 2019 at 05:58 Date of Discharge 07/06/2019 Primary Care Physician: FAUSTO FALLON MD Attending Physician: LINCOLN SEE MD Specialist/Consultants Involve: GISELLE CYR MD Discharge Summary PROCEDURES PERFORMED DURING STAY: Right carotid endarterectomy ADMITTING DIAGNOSES: 1. Right ICA stenosis s/p carotid endarterectomy. 2. Hypertension. 3. Dyslipidemia. 4. Normocytic anemia. 5. Asthma. DISCHARGE DIAGNOSES: 1. Right ICA stenosis s/p carotid endarterectomy. 2. Hypertension. 3. Dyslipidemia. 4. Normocytic anemia. 5. Asthma. COMPLICATIONS/CHIEF COMPLAINT: Carotid Stenosis. HISTORY OF PRESENT ILLNESS: 79-year-old female who was recently found to have internal carotid artery stenosis on the right, who presented to [facility] for right carotid endarterectomy performed by Dr. Howell of vascular surgery. Patient was admitted by hospital team. Status post right carotid endarterectomy. The patient denied any symptoms of stroke or TIA in the past. Since her procedure, patient states she is feeling relatively well and denies fevers, chills, chest pain, palpitations, abdominal pain, nausea, vomiting, diarrhea. HOSPITAL COURSE: The patient was admitted to the hospital service for observation. She she was continued on aspirin, Plavix, and simvastatin. Recommendations by vascular surgery to maintain a systolic blood pressure between 90 and 140 which was achieved with scheduled lisinopril, hydrochlorothiazide, amlodipine, and carvedilol and additional as needed hydralazine. The patient did not require any doses of hydralazine during her admission. The patient also had regular neuro checks by nursing staff, which were stable. She did have a ANGEL drain in the surgical site, which drained minimal serosanguineous fluid. Prior to discharge, the ANGEL drain was removed and the surgical site was cleaned and dressed. The patient did have some mild swelling on the right side neck, but there was no significant swelling or concern for large hematoma at surgical site prior to discharge. On the day of discharge, the patient was found to be stable and safe for discharge. DISCHARGE MEDICATIONS: Please see below. ALLERGIES: Please see below. PHYSICAL EXAMINATION ON DISCHARGE: VITAL SIGNS: Please see below. GENERAL: Alert, comfortable, cooperative, no acute distress HEENT:. Moist mucous membranes, PERRLA, EOMI NECK: Mild swelling on the right side of the neck with clean surgical dressing CARDIOVASCULAR EXAMINATION: Regular rate and rhythm, normal S1, S2, no murmurs appreciated RESPIRATORY EXAMINATION: To auscultation bilaterally with equal air entry ABDOMINAL EXAMINATION:, Soft, nontender, nondistended, bowel sounds present EXTREMITIES: No cyanosis or edema. Pulses 2+/4 and radial and dorsalis pedis arteries NEUROLOGICAL EXAMINATION: Alert and oriented 3 to person, place and time, cranial nerves 212 grossly intact, no focal deficits appreciated. PSYCHIATRIC EXAMINATION: Mood and affect appropriate LABORATORY DATA: Please see below. IMAGING: None PROGNOSIS: Good ACTIVITY: As tolerated. DIET: As tolerated DISCHARGE PLAN: Home DISPOSITION: Home, Self-Care. DISCHARGE INSTRUCTIONS: 1. Continue taking the Plavix that you have at home until it is gone, and then you do not need a refill. 2. Continue aspirin and statin daily. 3. Activity as tolerated, but no strenuous exercise or lifting greater than 10 pounds for 2 weeks. Slowly increase activity as tolerated. 4. Try to rest with head elevated either in a recliner or on several pillows to help minimize swelling right neck. 5. Remove gauze and paper tape from the drain site, but leave Steri-Strips over incision and drain sites intact for 5-7 days. 6. Okay to shower after 24 hours. Make sure the water is not too hot. Recommend baby shampoo. No heat or styling products until incision is completely healed. 7. Resume preoperative diet and eat plenty of protein to help with wound healing and strength. 8. No driving for 1 week. 9. Follow-up with Dr. Cyr in 1 week to check incision. ITEMS TO FOLLOWUP ON ON OUTPATIENT: 1. Right carotid endarterectomy. DISCHARGE CONDITION: Stable TIME SPENT ON DISCHARGE: Greater than 35 minutes. Vital Signs/I&Os Vital Signs Date Time Temp Pulse Resp B/P (MAP) Pulse Ox O2 Delivery O2 Flow Rate FiO2 07/06/19 09:44 165/65 07/06/19 09:30 72 20 96 07/06/19 07:00 97.5 07/05/19 14:00 2.0 I&O- Last 24 Hours up to 6 AM 07/06/19 06:00 Intake Total 2680 ml Output Total 2475 ml Balance 205 ml Laboratory Data Labs 24H Laboratory Tests 2 07/06/19 04:29: Nucleated Red Blood Cells % (auto) 0.0, Anion Gap 5L, Glomerular Filtration Rate 57.1, Blood Urea Nitrogen 20H, Creatinine 1.00, Sodium Level 140, Potassium Level 3.9, Chloride Level 105, Carbon Dioxide Level 30, Calcium Level 8.6L, Magnesium Level 2.3 CBC/BMP Laboratory Tests 07/06/19 04:29 Red Blood Count 3.42 L, Mean Corpuscular Volume 90.9, Mean Corpuscular Hemoglobin 30.1, Mean Corpuscular Hemoglobin Concent 33.1, Red Cell Distribution Width 13.7, Calcium Level 8.6 L Discharge Medications Scheduled Amlodipine Besylate (Amlodipine Besylate) 2.5 Mg Tab, 2.5 MG PO DAILY, (Reported) Aspirin (Aspirin EC) 81 Mg Tab, 81 MG PO DAILY, (Reported) Calcium Carbonate/Vitamin D3 (Calcium 600-Vit D3 800 Tablet) 1 Tab Tab, 1 TAB PO DAILY, (Reported) Carvedilol (Carvedilol) 12.5 Mg Tab, 12.5 MG PO BID, (Reported) Cyanocobalamin (Vitamin B-12) (Vitamin B-12) 1,000 Mcg Tab, 1,000 MCG PO DAILY, (Reported) Ferrous Gluconate (Iron) 27 Mg Tab, 27 MG PO DAILY, (Reported) Garlic (Garlic Oil) 2 Mg Cap, 2 MG PO DAILY, (Reported) Lisinopril/Hydrochlorothiazide (Lisinopril-Hctz 20-25 mg Tab) 1 Tab Tab, 1 TAB PO DAILY, (Reported) Lovastatin (Lovastatin) 40 Mg Tab, 40 MG PO DAILY, (Reported) Potassium Gluconate (Potassium) 99 Mg Tablet, 595 MG PO DAILY, (Reported) Scheduled PRN Albuterol Sulfate (Ventolin Hfa) 108 Mcg/Act Aer, 108 MCG INH Q4HP PRN for SOB/WHEEZING, (Reported) Allergies Coded Allergies: Penicillins (Verified Adverse Reaction, Intermediate, LEG PAIN, 03/20/19) BECCA MELENDEZ PGY-1 Jul 06, 2019 13:57
== END 2019-07-06 12:00 | disposition home or self-care (01) ==
LOC: INTOOBSV 05:58 → M OR 05:58 → M ICU 11:45
PROVIDERS: ADMIT Surgery Vascular Surgery; ATTEND Internal Medicine
DX: I65.21 Occlusion and stenosis of right carotid artery (principal); I10 Essential (primary) hypertension; E78.49 Other hyperlipidemia; D64.9 Anemia, unspecified; J44.9 Chronic obstructive pulmonary disease, unspecified; K21.9 Gastro-esophageal reflux disease without esophagitis; Z79.01 Long term (current) use of anticoagulants; Z79.82 Long term (current) use of aspirin; Z79.899 Other long term (current) drug therapy; Z88.0 Allergy status to penicillin
CPT/HCPCS: 35301; 80048; 82330; 82947; 83735; 84132; 84295; 85014; 85027; 88304; C1768; G0378; J1100; J2250; J2405; J3010; J3370

== ENCOUNTER → 2019-07-19 | Outpatient (CLI) | payer MEDICARE ==
--- NOTE | 2019-07-19 10:41 | REP ---
CAROTID ULTRASOUND: Real-time ultrasound evaluation and duplex Doppler interrogation of the extracranial carotid vasculature is performed. There is mild plaquing and narrowing in both carotid bulbs extending into the internal and external carotid arteries. Luminal narrowing is less than 50%. There is no evidence of hemodynamically significant stenosis of either internal carotid artery. Normal flow velocities are seen. The vertebral arteries demonstrate normal direction of flow. RIGHT LEFT Peak systolic velocity ICA 112.0 cm/s 62.7 cm/s End diastolic velocity ICA 28.2 cm/s 25.8 cm/s Peak systolic velocity CCA 122 cm/s 99.7 cm/s Peak systolic velocity ECA 35.9 cm/s 65.4 cm/s ICA/CCA ratio 0.9 0.6 IMPRESSION: Bilateral luminal narrowing of the internal carotid arteries less than 50%. No evidence of hemodynamically significant stenosis. Electronically Signed by Asim Gunderson MD 07/19/2019 10:33 A
== END ==
LOC: M RAD 09:38
PROVIDERS: ATTEND Surgery Vascular Surgery
DX: I65.23 Occlusion and stenosis of bilateral carotid arteries (principal)

== ENCOUNTER → 2019-09-12 | Outpatient (REF) | payer MEDICARE ==
[2019-09-12 12:56] LABS: HEMATOCRIT 34.2 % (36.0-47.0); HEMOGLOBIN 10.9 g/dl (12.0-15.5)
[2019-09-12 13:21] LABS: CALCIUM LEVEL 9.2 MG/DL (8.8-10.2); CREATININE FOR GFR 1.22 MG/DL (0.55-1.30); GLOMERULAR FILTRATION RATE 45.4 (>39); POTASSIUM SERUM 3.7 MEQ/L (3.5-5.1)
== END ==
LOC: M SFHCLERA 09:49
PROVIDERS: ATTEND Family Medicine
DX: D64.9 Anemia, unspecified (principal); I10 Essential (primary) hypertension
CPT/HCPCS: 80048; 85014; 85018; G0463

== ENCOUNTER → 2019-11-21 | Outpatient (REF) | payer MEDICARE ==
[2019-11-21 20:32] LABS: BASO # 0.1 10^3/uL (0.0-0.2); BASO % 0.8 % (0.0-1.0); EOS # 0.2 10^3/uL (0.0-0.5); EOS % 2.4 % (0.0-3.0); HEMATOCRIT 35.4 % (36.0-47.0); HEMOGLOBIN 11.5 g/dl (12.0-15.5); LYMPH # 1.9 10^3/uL (1.5-5.0); LYMPH % 21.8 % (24.0-44.0); MEAN CORPUSCULAR HEMOGLOBIN 29.2 pg (27.0-33.0); MEAN CORPUSCULAR HGB CONC 32.5 g/dl (32.0-36.5); MEAN CORPUSCULAR VOLUME 89.8 fl (80.0-96.0); MONO # 0.8 10^3/uL (0.0-0.8); MONO % 8.7 % (0.0-5.0); NEUTROPHILS # 5.7 10^3/uL (1.5-8.5); PLATELET COUNT, AUTOMATED 237 10^3/uL (150-450); RED BLOOD COUNT 3.94 10^6/uL (4.00-5.40); WHITE BLOOD COUNT 8.7 10^3/uL (4.0-10.0)
[2019-11-21 20:37] LABS: CALCIUM LEVEL 9.1 MG/DL (8.8-10.2); CREATININE FOR GFR 1.26 MG/DL (0.55-1.30); GLOMERULAR FILTRATION RATE 43.7 (>39); POTASSIUM SERUM 3.8 MEQ/L (3.5-5.1)
== END ==
LOC: M SFHCLERA 16:18
PROVIDERS: ATTEND Family Medicine
DX: I10 Essential (primary) hypertension (principal); D64.9 Anemia, unspecified

== ENCOUNTER → 2019-11-29 | Outpatient (CLI) | payer MEDICARE | LOC: M WHC 10:20 | PROVIDERS: ATTEND Family Medicine | DX: Z13.820 Encounter for screening for osteoporosis (principal); M81.0 Age-related osteoporosis without current pathological fracture ==

== ENCOUNTER 2020-01-28 07:54 | Inpatient (IN) | payer MEDICARE ==
[~2020-01-28] VITALS: Ht 149.9 cm; Wt 60.1 kg
[2020-01-28] MEDS ORDERED: methylPREDNISolone INJ 125 MG/2 ML VIAL (J2930) IV ONE (08:15)
[2020-01-28] MEDS ORDERED: ALBUTEROL 90 MCG/ACT 8GM HFA INHALER INH ONE ×2 (08:15→08:30)
[2020-01-28] MEDS ORDERED: COMBIVENT RESPIMAT 100-20MCG INHALER 4GM INH PRN (08:30)
[2020-01-28 08:35] LABS: BASO # 0.1 10^3/uL (0.0-0.2); BASO % 0.7 % (0.0-1.0); EOS # 0.2 10^3/uL (0.0-0.5); EOS % 2.3 % (0.0-3.0); HEMATOCRIT 39.2 % (36.0-47.0); HEMOGLOBIN 12.6 g/dl (12.0-15.5); LYMPH # 1.3 10^3/uL (1.5-5.0); LYMPH % 17.6 % (24.0-44.0); MEAN CORPUSCULAR HEMOGLOBIN 29.4 pg (27.0-33.0); MEAN CORPUSCULAR HGB CONC 32.1 g/dl (32.0-36.5); MEAN CORPUSCULAR VOLUME 91.4 fl (80.0-96.0); MONO # 0.5 10^3/uL (0.0-0.8); MONO % 6.8 % (0.0-5.0); NEUTROPHILS # 5.3 10^3/uL (1.5-8.5); NEUTROPHILS % 72.2 % (36.0-66.0); PLATELET COUNT, AUTOMATED 193 10^3/uL (150-450); RED BLOOD COUNT 4.29 10^6/uL (4.00-5.40); WHITE BLOOD COUNT 7.4 10^3/uL (4.0-10.0)
[2020-01-28 08:45] VITALS: O2SAT 100
[2020-01-28 08:53] LABS: ABG BASE EXCESS 1.5 (-2.0-2.0); ABG HCO3 26.3 MEQ/L (22.0-26.0); ABG O2 SATURATION 98.3 % (95.0-99.0); ABG PARTIAL PRESSURE CO2 42.3 mmHg (35.0-45.0); ABG PARTIAL PRESSURE O2 112.3 mmHg (75.0-100.0); ABG STANDARD HCO3 25.8 MEQ/L (22.0-26.0); ABG TOTAL CO2 27.6 MEQ/L (23.0-31.0); ABG pH (ARTERIAL) 7.411 UNITS (7.350-7.450)
[2020-01-28 09:12] LABS: ALBUMIN 3.5 GM/DL (3.2-5.2); ALT/SGPT 31 U/L (12-78); BILIRUBIN,DIRECT 0.1 MG/DL (0.0-0.2); BILIRUBIN,TOTAL 0.5 MG/DL (0.2-1.0); BLOOD UREA NITROGEN 14 MG/DL (7-18); CALCIUM LEVEL 8.7 MG/DL (8.8-10.2); CARBON DIOXIDE LEVEL 31 MEQ/L (21-32); CHLORIDE LEVEL 107 MEQ/L (98-107); CK-MB VALUE MASS 2.3 NG/ML (<3.6); CPK CREATINE PHOSPHOKINASE 67 U/L (26-192); CREATININE FOR GFR 0.72 MG/DL (0.55-1.30); GLOMERULAR FILTRATION RATE > 60.0 (>39); GLUCOSE, FASTING 114 MG/DL (70-100); MB/CK RELATIVE INDEX 3.43 (< OR =4); NT-PRO BNP 1143 PG/ML (<450); POTASSIUM SERUM 3.7 MEQ/L (3.5-5.1); SODIUM LEVEL 143 MEQ/L (136-145); THYROXINE (T4) 11.7 UG/DL (4.5-12.0); TOTAL PROTEIN 6.5 GM/DL (6.4-8.2); TROPONIN I < 0.02 NG/ML (< 0.10)
[2020-01-28] MEDS ORDERED: CALC1TAB63 PO (09:12)
[2020-01-28] MEDS ORDERED: LISI10TA4 PO (09:12)
[2020-01-28] MEDS ORDERED: FERR32TA PO (09:12)
[2020-01-28] MEDS ORDERED: ISOVUE-370 76% 100ML VIAL (Q9967) As Ordered ONE (09:43)
[2020-01-28 10:26] LABS: C REACTIVE PROTEIN QUANTITATIV < 0.30 MG/DL (0.00-0.30); FERRITIN 60 NG/ML (8-252); LDH LACTATE DEHYDROGENASE 203 U/L (84-246)
[2020-01-28 10:43] LABS: INR 0.98; PROTHROMBIN TIME 12.6 SECONDS (11.8-14.0)
[2020-01-28 10:44] LABS: PARTIAL THROMBOPLASTIN TIME 26.2 SECONDS (25.0-38.4)
[2020-01-28 10:46] LABS: D-DIMER QUANT 716.73 ng/ml (<500)
[2020-01-28] MEDS ORDERED: ALBUTEROL SULFATE 2.5 MG/0.5 ML INH NEB SOLN INH PRN (11:00)
[2020-01-28] MEDS ORDERED: ACETAMINOPHEN TAB 650MG DOSE (2X325MG) PO PRN (11:00)
--- NOTE | 2020-01-28 11:14 | HPEPDOC ---
General Date of Admission Jan 28, 2020 at 10:46 Date of Service: Jan 28, 2020 Chief Complaint The patient is a 79-year-old female Who presented to the ER with complaints of shortness of breath History of Present Illness Patient is a 79-year-old female with a PMHx of HTN, DLP, Asthma (Dx: >20 years ago, on Albuterol) who presented to the emergency room with complaints of progressive short of breath over the last 3 days. Patient has reported that over the course of 3 days or shortness of breath was slow on onset, but has worsened. Patient denies any cough. She notes that she may have had very minimal to no sputum production. Denies any fevers or chills while at home. Denies any chest pain or palpitations. reports that she sleeps with one pillow at night. Reports that recently. Shes been waking up because of shortness of breath but denies any lower extremity swelling. Patient denies any nausea, vomiting, abdominal pain. Does report constipation on her last bowel movement was 3 days ago. Denies any urinary discomfort. Patient reports her appetite is normal, but does report a weight loss of approximately 10 pounds over 1 month duration, that she reports is uninten tional. Home Medications Scheduled Amlodipine Besylate (Amlodipine Besylate) 2.5 Mg Tab, 2.5 MG PO DAILY, (Reported) Aspirin (Aspirin EC) 81 Mg Tab, 81 MG PO DAILY, (Reported) Calcium Carbonate/Vitamin D3 (Calcium 600-Vit D3 400 Tablet) 1 Each Tablet, 1 TAB PO DAILY, (Reported) Carvedilol (Carvedilol) 12.5 Mg Tab, 12.5 MG PO BID, (Reported) Cyanocobalamin (Vitamin B-12) (Vitamin B-12) 1,000 Mcg Tab, 1,000 MCG PO DAILY, (Reported) Ferrous Gluconate (Ferrous Gluconate) 324 Mg Tablet, 324 MG PO DAILY, (Reported) Lisinopril (Lisinopril) 10 Mg Tablet, 10 MG PO DAILY, (Reported) Lovastatin (Lovastatin) 40 Mg Tab, 40 MG PO DAILY, (Reported) Scheduled PRN Albuterol Sulfate (Ventolin Hfa) 108 Mcg/Act Aer, 2 PUFF INH Q4H PRN for SOB/WHEEZING, (Reported) Allergies Coded Allergies: Penicillins (Verified Adverse Reaction, Intermediate, LEG PAIN, 5/6/19) Past Medical History Medical History HTN, DLP, Asthma (Dx: >20 years ago, on Albuterol) Surgical History Right carotid endarterectomy, 06/2019 Hysterectomy Bilateral cataract excision Family History - Patient reports she is unaware of her mother and father having any illnesses - No history of malignancies Social History - Denies the use of tobacco or illicit drugs; patient reports seldom alcohol consumption - Denies recent travel or sick contacts - Lives with and son locally - Occupation; patient was a homemaker Review of Systems Other systems 10 point review of systems complete, all negative otherwise stated in HPI Vital Signs - Vitals: BP 188/86, HR 65, RR 20, Sat 100%NC2L, Temp 98.8F - General: Lying in bed, No acute distress, Speaking in full sentences, AAOx3 - HEENT: NC, AT, PERRLA, EOMI - CVS: RRR, +S1S2 - Lungs: Appears to have poor air entry bilaterally, however, there is very faint wheezing noted. No rhonchi or crackles - Abdomen: Soft, Non-distended, Non-tender - Extremities: No lower extremity edema, No calf tenderness - Neuro: No focal motor or sensory deficit - Skin: No visible rashes Laboratory Data Labs 24H Laboratory Tests 2 01/28/20 08:10: Immature Granulocyte % (Auto) 0.4, Neutrophils (%) (Auto) 72.2H, Lymphocytes (%) (Auto) 17.6L, Monocytes (%) (Auto) 6.8H, Eosinophils (%) (Auto) 2.3, Basophils (%) (Auto) 0.7, Neutrophils # (Auto) 5.3, Lymphocytes # (Auto) 1.3L, Monocytes # (Auto) 0.5, Eosinophils # (Auto) 0.2, Basophils # (Auto) 0.1, Nucleated Red Blood Cells % (auto) 0.0, Anion Gap 5L, Glomerular Filtration Rate > 60.0, Calcium Level 8.7L, Ferritin 60, Total Bilirubin 0.5, Direct Bilirubin 0.1, Aspartate Amino Transf (AST/SGOT) 14, Alanine Aminotransferase (ALT/SGPT) 31, Alkaline Phosphatase 73, Lactate Dehydrogenase 203, Total Creatine Kinase 67, Creatine Kinase MB 2.3, Creatine Kinase MB Relative Index 3.43, Troponin I < 0.02, C-Reactive Protein, Quantitative < 0.30, WA-Ooj-M-Type Natriuretic Peptide 1143H, Total Protein 6.5, Albumin 3.5, Albumin/Globulin Ratio 1.17, Thyroid Stimulating Hormone (TSH) 1.960, Thyroxine (T4) 11.7 01/28/20 08:19: Prothrombin Time 12.6, Prothromb Time International Ratio 0.98, Activated Partial Thromboplast Time 26.2, D-Dimer, Quantitative 716.73H 01/28/20 08:20: Lactic Acid Level 1.0 01/28/20 08:40: Blood Gas Bicarbonate Standard 25.8, Arterial Blood pH 7.411, Arterial Blood Partial Pressure CO2 42.3, Arterial Blood Partial Pressure O2 112.3H, Arterial Blood Total CO2 27.6, Arterial Blood HCO3 26.3H, Arterial Blood Base Excess 1.5, Arterial Blood Oxygen Saturation 98.3 CBC/BMP Laboratory Tests 01/28/20 08:10 Microbiology Microbiology 01/28/20 Respiratory Virus (PCR), Received Pending 01/28/20 Virus Detection (PCR), Received Pending 01/28/20 Blood Culture, Received Pending 01/28/20 Blood Culture, Received Pending 01/28/20 Respiratory Virus Panel (PCR) ([facility]) - Final, Complete Plan / VTE VTE Prophylaxis Ordered?: Yes Plan Plan Shortness of breath - likely 2/2 acute asthma exacerbation - Patient is presented to the hospital with complaints of 3 days of progressive shortness of breath - Patient has denied any fevers or chills and does not experience any productive cough - Patient is hemodynamically stable, afebrile - No leukocytosis. ABG is noted - Respiratory panel 01/27: negative - CXR 01/27: Chronic changes - CTA chest 01/27: no evidence of pulmonary embolism, bilateral small pleural effusions, atelectasis - In the ER patient has received Solu-Medrol and inhaled therapy - In the emergency room, patient was tested for COVID-19; at this time will follow precautionary measures until results are back (Low likelihood) - Will continue with Solu-Medrol and Albuterol inhaler Elevated BNP / Bilateral pleural effusions - Clinically does not have any signs of fluid overload - Reported symptomatic improvement with asthma treatment - Will hold off on diuretics at this time - Will check ECHO (re: Dyspnea) HTN - BP moderately elevated - Will c/w Amlodipine, Carvedilol, Lisinopril DLP - c/w Simvastatin (dose modified given Amlodipine use) DVT prophylaxis - Will start BRIGETTE Liu MD Jan 28, 2020 11:13
[2020-01-28] MEDS ORDERED: ALBUTEROL 90 MCG/ACT 8GM HFA INHALER INH PRN (11:15)
[2020-01-28] MEDS: lisinopriL 10 MG TAB PO SCH (11:19)
[2020-01-28] MEDS: CARVedilol 12.5 MG TAB PO SCH ×2 (11:19→20:28)
[2020-01-28] MEDS ORDERED: ALBUTEROL SULFATE 2.5 MG/0.5 ML INH NEB SOLN INH SCH (12:00)
--- NOTE | 2020-01-28 13:45 | REP ---
REASON: Dyspnea and cough. COMPARISON: Multiple, the latest 01/12/2019. The technique utilized in obtaining the radiograph has magnified the cardiac silhouette and accentuated the interstitial markings. The cardiac silhouette is magnified by technique. There is interstitial fibrotic change, status quo. No acute patchy parenchymal opacities or pleural effusions have developed. The osseous structures are stable and intact. IMPRESSION: No evidence of acute cardiopulmonary disease. Unreviewed
[2020-01-28 14:25] VITALS: BP 122/74
--- NOTE | 2020-01-28 15:44 | REP ---
REASON: Dyspnea. COMPARISON: 10/06/2019 CONTRAST: 100 mL Isovue-370. There is excellent visualization of the pulmonary arterial vasculature. There are no focal filling defects present that would be considered consistent with pulmonary emboli. There is no pericardial effusion. There are small bilateral pleural effusions. The imaged upper abdomen and imaged osseous structures are within normal limits. Evaluation of the lung millan shows a few curvilinear and patchy bibasilar opacities. There are no significant nodules or masses. Incidental note is again made of calcified granulomas. There is no mediastinal or hilar adenopathy. IMPRESSION: 1. There is no evidence of a pulmonary embolus. 2. Small bilateral pleural effusions. 3. Likely bibasilar subsegmental atelectasis; however, correlate clinically to rule out the possibility of early developing basilar pneumonia. Unreviewed
[2020-01-28] MEDS: CYANOCOBALAMIN 500 MCG TAB PO SCH (16:13)
[2020-01-28] MEDS: ASPIRIN 81 MG ENTERIC TAB PO SCH (16:13)
[2020-01-28] MEDS: methylPREDNISolone INJ 40 MG/1 ML VIAL (J2920) IV SCH (16:13)
[2020-01-28] MEDS: FERROUS GLUCONATE 324 MG TAB PO SCH (16:14)
[2020-01-28] MEDS: ENOXAPARIN 40 MG/0.4 ML SYRINGE (J1650) SC SCH (16:14)
[2020-01-28] MEDS ORDERED: SIMVASTATIN 20 MG TAB PO SCH (21:00)
[2020-01-28 22:00] VITALS: BP 173/93
[2020-01-28 22:26] VITALS: BP 127/71
[2020-01-29] MEDS: methylPREDNISolone INJ 40 MG/1 ML VIAL (J2920) IV SCH ×2 (00:28→08:09)
[2020-01-29 06:00] VITALS: BP 126/70
[2020-01-29 06:56] LABS: BASO % 0.1 % (0.0-1.0); HEMATOCRIT 32.6 % (36.0-47.0); HEMOGLOBIN 10.7 g/dl (12.0-15.5); LYMPH # 0.9 10^3/uL (1.5-5.0); LYMPH % 5.7 % (24.0-44.0); MEAN CORPUSCULAR HGB CONC 32.8 g/dl (32.0-36.5); MEAN CORPUSCULAR VOLUME 91.3 fl (80.0-96.0); MONO # 0.2 10^3/uL (0.0-0.8); MONO % 1.3 % (0.0-5.0); NEUTROPHILS # 14.1 10^3/uL (1.5-8.5); NEUTROPHILS % 92.3 % (36.0-66.0); PLATELET COUNT, AUTOMATED 193 10^3/uL (150-450); RED BLOOD COUNT 3.57 10^6/uL (4.00-5.40); WHITE BLOOD COUNT 15.3 10^3/uL (4.0-10.0)
--- NOTE | 2020-01-29 07:23 | ECGEPIP ---
[facility] - ED Test Date: 2020-01-28 Pat Name: LAVERNE AYALA Department: Room: [place] [address] Gender: Female Director Credit Risk: sheyla : 1940 Requested By: Severino Doss Order Number: [id number] Reading MD: Orly Campbell Measurements Intervals [place] Rate: 66 P: 260 NC: 123 QRS: 18 QRSD: 88 T: 49 QT: 425 QTc: 448 Interpretive Statements SINUS RHYTHM ABNORMAL RHYTHM ECG NSTTW abnormalities SIMILAR 10/07/16 Electronically Signed on 01-29-2020 7:22:54 EDT by Orly Campbell
[2020-01-29 07:32] LABS: CALCIUM LEVEL 8.8 MG/DL (8.8-10.2); GLOMERULAR FILTRATION RATE 57.1 (>39); MAGNESIUM LEVEL 2.4 MG/DL (1.8-2.4); POTASSIUM SERUM 3.9 MEQ/L (3.5-5.1)
[2020-01-29 08:09] VITALS: BP 146/80
[2020-01-29] MEDS: ASPIRIN 81 MG ENTERIC TAB PO SCH (08:09)
[2020-01-29] MEDS: lisinopriL 10 MG TAB PO SCH (08:09)
[2020-01-29] MEDS: FERROUS GLUCONATE 324 MG TAB PO SCH (08:10)
[2020-01-29] MEDS: CYANOCOBALAMIN 500 MCG TAB PO SCH (08:10)
[2020-01-29] MEDS: CARVedilol 12.5 MG TAB PO SCH (08:10)
[2020-01-29] MEDS: ENOXAPARIN 40 MG/0.4 ML SYRINGE (J1650) SC SCH (08:12)
[2020-01-29] MEDS ORDERED: PRED10TA2 PO (09:36)
--- NOTE | 2020-01-29 11:09 | DS.PDOC ---
Discharge Summary General Date of Admission Jan 28, 2020 at 10:46 Date of Discharge 01/29/2020 Discharge Summary PROCEDURES PERFORMED DURING STAY: [None]. ADMITTING DIAGNOSES / DISCHARGE DIAGNOSES: s/p Shortness of breath - likely 2/2 acute asthma exacerbation Elevated BNP / Bilateral pleural effusions HTN DLP DVT prophylaxis COMPLICATIONS/CHIEF COMPLAINT: Shortness of breath HISTORY OF PRESENT ILLNESS: Patient is a 79-year-old female with a PMHx of HTN, DLP, Asthma (Dx: >20 years ago, on Albuterol) who presented to the emergency room with complaints of progressive short of breath over the last 3 days. Patient has reported that over the course of 3 days or shortness of breath was slow on onset, but has worsened. Patient denies any cough. She notes that she may have had very minimal to no sputum production. Denies any fevers or chills while at home. Denies any chest pain or palpitations. reports that she sleeps with one pillow at night. Reports that recently. Shes been waking up because of shortness of breath but denies any lower extremity swelling. Patient denies any nausea, vomiting, abdominal pain. Does report constipation on her last bowel movement was 3 days ago. Denies any urinary discomfort. HOSPITAL COURSE: s/p Shortness of breath - likely 2/2 acute asthma exacerbation - Clinically reports improvement in her breathing without any significant cough - Remains hemodynamically stable, afebrile - No leukocytosis. ABG is noted - Respiratory panel 01/27: negative - COVID-19 results pending - CXR 01/27: Chronic changes - CTA chest 01/27: no evidence of pulmonary embolism, bilateral small pleural effusions, atelectasis - Will transition to prednisone today; will DC Solumedrol - Symptoms. Results of Covid 19 testing are unavailable at this time; will have the patient self isolate for 14 days until results of COVID-19 become available - Patient has been advised to remain self isolated/ quarantined for 14 days - Will discharge with prednisone taper and outpatient follow up with PCP in 7-14 days Elevated BNP / Bilateral pleural effusions - Clinically does not have any signs of fluid overload - Reported symptomatic improvement with asthma treatment - Has not been given any diuretics - Will consider outpatient ECHO at this time - Will follow up with PCP HTN - BP moderately elevated - c/w Amlodipine, Carvedilol, Lisinopril DLP - c/w Simvastatin (dose modified given Amlodipine use) DVT prophylaxis - c/w Lovenox DISCHARGE MEDICATIONS: Please see below. ALLERGIES: Please see below. PHYSICAL EXAMINATION ON DISCHARGE: Vitals (See below) General: Lying in bed, no acute distress, comfortable, AAOx3 HEENT: NC, AT CVS: RRR, +S1S2 Lungs: Aeration has improved bilaterally, very mild wheezing noted bilaterally, no rhonchi / rales Abdomen: Soft, ND, non-tender Extremities: No evidence of edema, - Calf tenderness LABORATORY DATA: Please see below. ACTIVITY: [As tolerated]. DISCHARGE PLAN: Follow up with PCP within 7-14 days Remain compliant with treatment plan and medications Return to the ER if you experience any problems DISPOSITION: Home DISCHARGE CONDITION: [Stable]. TIME SPENT ON DISCHARGE: 35 minutes Vital Signs/I&Os Vital Signs Date Time Temp Pulse Resp B/P (MAP) Pulse Ox O2 Delivery O2 Flow Rate FiO2 01/29/20 08:15 2.0 01/29/20 08:10 77 01/29/20 08:09 146/80 01/29/20 06:00 97.6 20 98 Nasal Cannula I&O- Last 24 Hours up to 6 AM 01/29/20 05:59 Intake Total 120 ml Output Total 300 ml Balance -180 ml Laboratory Data Labs 24H Laboratory Tests 2 01/29/20 06:06: Immature Granulocyte % (Auto) 0.6, Neutrophils (%) (Auto) 92.3H, Lymphocytes (%) (Auto) 5.7L, Monocytes (%) (Auto) 1.3, Eosinophils (%) (Auto) 0.0, Basophils (%) (Auto) 0.1, Neutrophils # (Auto) 14.1H, Lymphocytes # (Auto) 0.9L, Monocytes # (Auto) 0.2, Eosinophils # (Auto) 0.0, Basophils # (Auto) 0.0, Nucleated Red Blood Cells % (auto) 0.0, Anion Gap 5L, Glomerular Filtration Rate 57.1, Calcium Level 8.8, Magnesium Level 2.4 CBC/BMP Laboratory Tests 01/29/20 06:06 Microbiology Microbiology 01/28/20 Respiratory Virus (PCR), Received Pending 01/28/20 Virus Detection (PCR), Received Pending 01/28/20 Blood Culture - Preliminary, Resulted No growth after 24 hours . All specim... 01/28/20 Blood Culture - Preliminary, Resulted No growth after 24 hours . All specim... 01/28/20 Respiratory Virus Panel (PCR) (MARIA C) - Final, Complete Discharge Medications Scheduled Amlodipine Besylate (Amlodipine Besylate) 2.5 Mg Tab, 2.5 MG PO DAILY, (Reported) Aspirin (Aspirin EC) 81 Mg Tab, 81 MG PO DAILY, (Reported) Calcium Carbonate/Vitamin D3 (Calcium 600-Vit D3 400 Tablet) 1 Each Tablet, 1 TAB PO DAILY, (Reported) Carvedilol (Carvedilol) 12.5 Mg Tab, 12.5 MG PO BID, (Reported) Cyanocobalamin (Vitamin B-12) (Vitamin B-12) 1,000 Mcg Tab, 1,000 MCG PO DAILY, (Reported) Ferrous Gluconate (Ferrous Gluconate) 324 Mg Tablet, 324 MG PO DAILY, (Reported) Lisinopril (Lisinopril) 10 Mg Tablet, 10 MG PO DAILY, (Reported) Lovastatin (Lovastatin) 40 Mg Tab, 40 MG PO DAILY, (Reported) Prednisone (Prednisone) 10 Mg Tablet, 10 MG PO TAPER Take 4 tabs daily x 3 days, then 3 tabs daily x 3 days, then 2 tabs daily x 3 days, then 1 tab daily x 3 days and stop Scheduled PRN Albuterol Sulfate (Ventolin Hfa) 108 Mcg/Act Aer, 2 PUFF INH Q4H PRN for SO B/WHEEZING, (Reported) Allergies Coded Allergies: Penicillins (Verified Adverse Reaction, Intermediate, LEG PAIN, 03/20/19) BRIGETTE SCHAEFER MD Jan 29, 2020 11:09
[2020-01-29] MEDS ORDERED: predniSONE 20 MG TAB PO ONE (12:00)
== END 2020-01-29 14:14 | disposition home or self-care (01) | DRG 202 ==
LOC: M ED 07:54 → M ED INP 10:46 → M MSPAV 14:41
PROVIDERS: ADMIT Internal Medicine; ATTEND Internal Medicine
DX: J45.901 Unspecified asthma with (acute) exacerbation (principal); J90 Pleural effusion, not elsewhere classified; I10 Essential (primary) hypertension; E78.5 Hyperlipidemia, unspecified; K59.00 Constipation, unspecified; Z79.82 Long term (current) use of aspirin; Z79.899 Other long term (current) drug therapy; Z88.0 Allergy status to penicillin; Z98.41 Cataract extraction status, right eye; Z98.42 Cataract extraction status, left eye

== ENCOUNTER 2020-02-21 11:22 | Inpatient (IN) | payer MEDICARE ==
[~2020-02-21 11:22] MED LIST changes: +CALC1TAB63 PO; +FERR32TA PO; +LISI10TA4 PO; +PRED10TA2 PO
[2020-02-21] MEDS ORDERED: COMBIVENT RESPIMAT 100-20MCG INHALER 4GM INH SCH (11:45)
[2020-02-21] MEDS ORDERED: methylPREDNISolone INJ 125 MG/2 ML VIAL (J2930) IV ONE (11:45)
[2020-02-21] MEDS ORDERED: ALBUTEROL 90 MCG/ACT 8GM HFA INHALER INH ONE (12:00)
[2020-02-21 12:01] LABS: BASO # 0.1 10^3/uL (0.0-0.2); BASO % 0.4 % (0.0-1.0); EOS # 0.2 10^3/uL (0.0-0.5); EOS % 1.2 % (0.0-3.0); HEMATOCRIT 42.1 % (36.0-47.0); HEMOGLOBIN 13.4 g/dl (12.0-15.5); LYMPH # 2.9 10^3/uL (1.5-5.0); LYMPH % 23.7 % (24.0-44.0); MEAN CORPUSCULAR HEMOGLOBIN 29.5 pg (27.0-33.0); MEAN CORPUSCULAR HGB CONC 31.8 g/dl (32.0-36.5); MEAN CORPUSCULAR VOLUME 92.5 fl (80.0-96.0); MONO # 0.9 10^3/uL (0.0-0.8); NEUTROPHILS # 8.2 10^3/uL (1.5-8.5); NEUTROPHILS % 67.2 % (36.0-66.0); PLATELET COUNT, AUTOMATED 218 10^3/uL (150-450); RED BLOOD COUNT 4.55 10^6/uL (4.00-5.40); WHITE BLOOD COUNT 12.2 10^3/uL (4.0-10.0)
[2020-02-21 12:12] LABS: INR 1.03; PROTHROMBIN TIME 13.2 SECONDS (11.8-14.0)
[2020-02-21] MEDS ORDERED: lisinopriL 10 MG TAB PO ONE (12:15)
[2020-02-21] MEDS ORDERED: amLODIPine 5 MG TAB PO ONE (12:15)
[2020-02-21] MEDS ORDERED: CARVedilol 12.5 MG TAB PO ONE (12:15)
--- NOTE | 2020-02-21 12:16 | REP ---
REASON: Cough and dyspnea. COMPARISON: Multiple, the latest 01/28/2020. The technique utilized in obtaining the radiograph has magnified the cardiac silhouette and accentuated the interstitial markings. Once again, the interstitial markings are coarsened, but stable. There is cardiomegaly accentuated by technique. No acute patchy parenchymal opacities or pleural effusions seemed to have developed since the last exam. The osseous structures are stable. IMPRESSION: Stable appearing chronic changes as described above. Electronically Signed by Rober Barron DO 02/21/2020 01:38 P
[2020-02-21] MEDS ORDERED: PILL CUTTER 1 EACH XX ONE (12:19)
[2020-02-21 12:33] LABS: ALBUMIN 3.4 GM/DL (3.2-5.2); ALT/SGPT 89 U/L (12-78); BILIRUBIN,DIRECT 0.2 MG/DL (0.0-0.2); BILIRUBIN,TOTAL 0.7 MG/DL (0.2-1.0); BLOOD UREA NITROGEN 17 MG/DL (7-18); CARBON DIOXIDE LEVEL 31 MEQ/L (21-32); CHLORIDE LEVEL 105 MEQ/L (98-107); CK-MB VALUE MASS 1.7 NG/ML (<3.6); CPK CREATINE PHOSPHOKINASE 42 U/L (26-192); GLOMERULAR FILTRATION RATE > 60.0 (>39); GLUCOSE, FASTING 135 MG/DL (70-100); MB/CK RELATIVE INDEX 4.05 (< OR =4); NT-PRO BNP 2348 PG/ML (<450); POTASSIUM SERUM 3.9 MEQ/L (3.5-5.1); SODIUM LEVEL 144 MEQ/L (136-145); TOTAL PROTEIN 6.5 GM/DL (6.4-8.2); TROPONIN I < 0.02 NG/ML (< 0.10)
--- NOTE | 2020-02-21 13:12 | REP ---
DUPLEX EXTREMITY VENOUS ULTRASOUND: LEFT LOWER EXTREMITY. HISTORY: Swelling. Rule out DVT. FINDINGS: The deep veins are anechoic and fully compressible from the groin to the popliteal fossa in the left lower extremity. Color flow imaging is homogeneous. Spectral Doppler interrogation demonstrates intact respiratory variation in flow and normal manual augmentation of flow. There is no evidence of deep vein thrombosis. IMPRESSION: Negative left lower extremity duplex venous ultrasound. No evidence of deep vein thrombosis. Electronically Signed by Delvin Ontiveros MD 02/21/2020 01:45 P
[2020-02-21] MEDS ORDERED: ISOVUE-370 76% 100ML VIAL (Q9967) As Ordered ONE (14:21)
--- NOTE | 2020-02-21 15:27 | REP ---
CT ANGIOGRAM CHEST: TECHNIQUE: Axial contrast enhanced images from the thoracic inlet to the upper abdomen using 100 mL Isovue 370 intravenous contrast material with multiplanar reformations. COMPARISON: 01/28/2020. There is no CT evidence of pulmonary embolism. There is no thoracic aortic aneurysm or dissection with mild scattered atherosclerotic calcifications. There is mild cardiomegaly. A small pericardial effusion is noted. There are moderate bilateral pleural effusions which have increased since the prior exam. Tiny calcified lymph nodes are seen in both hilar regions. There is no significant mediastinal, hilar, or chest wall lymphadenopathy. There is diffuse interstitial edema bilaterally. There are mild patchy areas of bibasilar infiltrate/atelectasis. There are degenerative changes of the spine. There is a small nodule in the posterior right lobe of the liver which is unchanged since the CT of 03/17/2017. IMPRESSION: No CT evidence of pulmonary embolism. Mild cardiomegaly. Small amount of pericardial fluid. Moderate bilateral pleural effusions have increased since the prior exam of 01/28/2020. There is diffuse interstitial edema bilaterally. There are mild patchy areas of bibasilar atelectasis/infiltrate. Electronically Signed by Asim Gunderson MD 02/22/2020 11:51 A
[2020-02-21] MEDS ORDERED: FUROSEMIDE 40 MG/4 ML VIAL (J1940) IV ONE (16:15)
[2020-02-21] MEDS ORDERED: ACET-683 PO (16:42)
[2020-02-21] MEDS ORDERED: ALBUTEROL 90 MCG/ACT 8GM HFA INHALER INH PRN ×2 (18:00→19:58)
[2020-02-21] MEDS ORDERED: ACETAMINOPHEN 500 MG TAB PO PRN (18:00)
--- NOTE | 2020-02-21 18:37 | HPEPDOC ---
[facility] Medical History & Physical Date of Admission Feb 21, 2020 Date of Service: Feb 21, 2020 Attending Physician: MOLINA IRVIN MD History and Physical CHIEF COMPLAINT: Shortness of breath HISTORY OF PRESENT ILLNESS: 79 y.o female w/ PMH of Asthma, HTN & HLD presents with persistent shortness of breath. She was admitted a few weeks ago for Asthma exacerbation. She reports that her symptoms never improved after discharge and have persisted since then. She denies any worsening in symptoms and presented today due to lack of improvement. She reports dyspnea with exertion, dry cough & recently she also started noticing leg swelling. She has bilateral pleural effusions at the time of her previous hospitalizations. She denies any previous history of CHF. In the ED, she also found to be in A fib, which appears to be new onset. She denies any chest pain, N/V/D or abdominal pain. 10 point review of system is negative except for above. PAST MEDICAL HISTORY: 1. HTN 2. HLD 3. Asthma PAST SURGICAL HISTORY: 1. Hysterectomy SOCIAL HISTORY: Never smoker social alcohol use denies drug use FAMILY HISTORY: Patient is unaware of her family history ALLERGIES: Please see below. HOME MEDICATIONS: Please see below. PHYSICAL EXAMINATION: VITAL SIGNS: See below GENERAL APPEARANCE: No distress HEENT: Moist mucus membranes CARDIOVASCULAR: irregularly, irregular, tachycardic LUNGS: diminished in the bases, scattered rhonchi ABDOMEN: Soft, non-tender, non-distended, +BS EXTREMITIES: b/l LE edema, significantly worse on LLE NEUROLOGICAL: No focal deficits PSYCHIATRIC: calm LABORATORY DATA: See below. IMAGING: CT chest showing moderate b/l pleural effusions MICROBIOLOGY: Please see below. ASSESSMENT: 79 y.o female w/ multiple medical comorbidities is being admitted for new onset Afib w/ RVR & acute CHF. PLAN: 1. New onset A fib - Eliquis for AC, continue Coreg for rate control. 2. Acute CHF - no prior history, possibly brought on by Afib w/ RVR, s/p Lasix 40 mg IVP in ED, continue Lasix 40 mg IV daily, monitor Is/Os, fluid restriction of 1200 ml/day, TTE pending. 3. Asthma - continue home regimen 4. HTN - continue Lisinopril & Coreg 5. HLD - continue statin DVT prophylaxis - Eliquis GI prophylaxis - not needed Vital Signs Vital Signs Date Time Temp Pulse Resp B/P (MAP) Pulse Ox O2 Delivery O2 Flow Rate FiO2 02/21/20 17:49 83 97 02/21/20 17:45 133/85 (101) 02/21/20 11:50 Nasal Cannula 2.0 02/21/20 11:23 98.2 36 Laboratory Data Labs 24H Laboratory Tests 2 02/21/20 11:45: Immature Granulocyte % (Auto) 0.5, Neutrophils (%) (Auto) 67.2H, Lymphocytes (%) (Auto) 23.7L, Monocytes (%) (Auto) 7.0H, Eosinophils (%) (Auto) 1.2, Basophils ( %) (Auto) 0.4, Neutrophils # (Auto) 8.2, Lymphocytes # (Auto) 2.9, Monocytes # (Auto) 0.9H, Eosinophils # (Auto) 0.2, Basophils # (Auto) 0.1, Nucleated Red Blood Cells % (auto) 0.0, Prothrombin Time 13.2, Prothromb Time International Ratio 1.03, Anion Gap 8, Glomerular Filtration Rate > 60.0, Lactic Acid Level 1.7, Calcium Level 9.0, Total Bilirubin 0.7, Direct Bilirubin 0.2, Aspartate Amino Transf (AST/SGOT) 30, Alanine Aminotransferase (ALT/SGPT) 89H, Alkaline Phosphatase 88, Total Creatine Kinase 42, Creatine Kinase MB 1.7, Creatine Kinase MB Relative Index 4.05H, Troponin I < 0.02, FX-Hoj-K-Type Natriuretic Peptide 2348H, Total Protein 6.5, Albumin 3.4, Albumin/Globulin Ratio 1.10, Thyroid Stimulating Hormone (TSH) 1.750 CBC/BMP Laboratory Tests 02/21/20 11:45 Microbiology Microbiology 02/21/20 Blood Culture, Received Pending 02/21/20 Blood Culture, Received Pending Home Medications Scheduled Aspirin (Aspirin EC) 81 Mg Tab, 81 MG PO DAILY Calcium Carbonate/Vitamin D3 (Calcium 600-Vit D3 400 Tablet) 1 Each Tablet, 1 TAB PO DAILY Carvedilol (Carvedilol) 12.5 Mg Tab, 12.5 MG PO BID Cyanocobalamin (Vitamin B-12) (Vitamin B-12) 1,000 Mcg Tab, 1,000 MCG PO DAILY Ferrous Gluconate (Ferrous Gluconate) 324 Mg Tablet, 324 MG PO DAILY Lisinopril (Lisinopril) 10 Mg Tablet, 10 MG PO DAILY Lovastatin (Lovastatin) 40 Mg Tab, 40 MG PO DAILY Scheduled PRN Acetaminophen (Acetaminophen) 500 Mg Tablet, 1,000 MG PO Q6H PRN for PAIN Albuterol Sulfate (Ventolin Hfa) 108 Mcg/Act Aer, 2 PUFF INH Q4H PRN for SOB/WHE EZING Allergies Coded Allergies: Penicillins (Verified Adverse Reaction, Intermediate, LEG PAIN, 03/20/19) A-FIB/CHADSVASC A-FIB History Current/History of A-Fib/PAF?: Yes Current PO Anticoag Therapy: Yes MOLINA IRVIN MD Feb 21, 2020 18:37
--- NOTE | 2020-02-21 19:16 | ECGEPIP ---
[facility] - ED Test Date: 2020-02-21 Pat Name: LAVERNE AYALA Department: Room: - Gender: Female Ramp Agent: gianna : 1940 Requested By: Orly Campbell Order Number: [id number] Reading MD: Dmitry Lara Measurements Intervals [place] Rate: 108 P: [place]: 0 QRS: 28 QRSD: 90 T: 23 QT: 339 QTc: 455 Interpretive Statements ATRIAL FIBRILLATION WITH RAPID VENTRICULAR RESPONSE MODERATE ST DEPRESSION RHYTHM/RATE CHANGE COMPARED TO 01/28/20 Electronically Signed on 02-21-2020 19:16:02 EDT by Dmitry Lara
[2020-02-21 19:52] VITALS: BP 140/78
[2020-02-21] MEDS: CARVedilol 12.5 MG TAB PO SCH (20:11)
[2020-02-21] MEDS: APIXABAN 5 MG TAB (ELIQUIS) PO SCH (20:11)
[2020-02-22] VITALS: BP 150/71
[2020-02-22 06:58] LABS: HEMATOCRIT 32.6 % (36.0-47.0); MEAN CORPUSCULAR HEMOGLOBIN 29.5 pg (27.0-33.0); MEAN CORPUSCULAR HGB CONC 32.2 g/dl (32.0-36.5); MEAN CORPUSCULAR VOLUME 91.6 fl (80.0-96.0); PLATELET COUNT, AUTOMATED 185 10^3/uL (150-450); RED BLOOD COUNT 3.56 10^6/uL (4.00-5.40)
[2020-02-22 07:05] LABS: HEMOGLOBIN 10.5 g/dl (12.0-15.5)
[2020-02-22 07:50] LABS: ALBUMIN 2.6 GM/DL (3.2-5.2); BILIRUBIN,TOTAL 0.3 MG/DL (0.2-1.0); CALCIUM LEVEL 8.2 MG/DL (8.8-10.2); CREATININE FOR GFR 1.04 MG/DL (0.55-1.30); GLOMERULAR FILTRATION RATE 54.6 (>39); MAGNESIUM LEVEL 2.2 MG/DL (1.8-2.4); POTASSIUM SERUM 3.8 MEQ/L (3.5-5.1); TOTAL PROTEIN 5.1 GM/DL (6.4-8.2)
[2020-02-22] MEDS: APIXABAN 5 MG TAB (ELIQUIS) PO SCH (08:50)
[2020-02-22 08:54] VITALS: BP 149/65
[2020-02-22] MEDS: CARVedilol 12.5 MG TAB PO SCH (08:54)
[2020-02-22] MEDS ORDERED: lisinopriL 10 MG TAB PO SCH (09:00)
[2020-02-22] MEDS ORDERED: FERROUS GLUCONATE 324 MG TAB PO SCH (09:00)
[2020-02-22] MEDS ORDERED: ASPIRIN 81 MG ENTERIC TAB PO SCH (09:00)
[2020-02-22] MEDS ORDERED: FUROSEMIDE 40 MG/4 ML VIAL (J1940) IV SCH (09:00)
[2020-02-22] MEDS ORDERED: CYANOCOBALAMIN 500 MCG TAB PO SCH (09:00)
[2020-02-22] MEDS ORDERED: SIMVASTATIN 40 MG TAB PO SCH (09:00)
[2020-02-22] MEDS ORDERED: LASI20TA3 PO (11:10)
[2020-02-22] MEDS ORDERED: ELIQ5TAB PO (11:10)
[2020-02-22] MEDS ORDERED: POTASSIUM CHLORIDE 10 MEQ SR TABLET PO ONE (11:30)
[2020-02-22 16:00] VITALS: BP 127/68
--- NOTE | 2020-02-23 06:11 | ECHO ---
DATE OF PROCEDURE: 02/22/2020 DATE OF : 1940 AGE: 79 GENDER: Female HEIGHT: 60 inches WEIGHT: 130 pounds BODY SURFACE AREA: 1.55 m2 INPATIENT: U - Room 3229 REFERRING PHYSICIAN: Dr. Ericka Luna INDICATION: Congestive heart failure. MEASUREMENTS 2-D Measurements: RV: 3.9 cm LV: 4.3 cm Septum: 1.0 cm Posterior wall: 1.0 cm Aortic root: 3.2 cm LA: 4.1 cm LVEF: 75% Doppler Measurements: AV: 1.7 m/s LVOT: 1.1 m/s LVOT diameter: 1.7 cm MV - E 119 A 56 EA ratio 2.1 Early mitral deceleration time: 187 ms E prime medial: 7.8 A prime medial: 5.5 E prime lateral: 7.2 Average E/E prime ratio: 15.9/PCWP 21.6 mmHg PV: 0.8 m/s Pulmonary artery acceleration time: 120 ms RVSP: 34 mmHg IVC: 1.9 cm COMMENTS: Normal sinus rhythm without intraventricular conduction disturbance. M-mode and two-dimensional echocardiography was performed with pulsed, continuous wave, color flow and tissue Doppler studies. Normal left ventricular size and wall thickness with hyperkinetic wall motion. Mildly dilated left atrium with grade 2 LV diastolic dysfunction and significantly elevated estimated mean left atrial pressure. Normal right heart chamber sizes and motion with current Doppler estimated pulmonary arterial pressure mildly increased. Normal IVC size and collapse against an elevated central venous pressure at this time. Normal aortic dimensions. Mild aortic valvular sclerosis without stenosis, but mild-moderate insufficiency. Moderate mitral annular calcification without inflow tract obstruction, but mild-moderate insufficiency. Normal appearing tricuspid valve with mild to moderate insufficiency. No apparent intracardiac mass or pericardial effusion.
--- NOTE | 2020-02-23 13:21 | DS.PDOC ---
Discharge Summary General Date of Admission Feb 21, 2020 at 17:54 Date of Discharge 02/22/20 Attending Physician: MOLINA IRVIN MD Discharge Summary PROCEDURES PERFORMED DURING STAY: None. ADMITTING DIAGNOSES: 1. New onset A. fib with RVR, CHF exacerbation. DISCHARGE DIAGNOSES: 1. New onset A. fib with RVR, CHF exacerbation. COMPLICATIONS/CHIEF COMPLAINT: A-Fib,Asthma,Chf Exacerbation,Htn. HISTORY OF PRESENT ILLNESS: 79-year-old female with past medical history of coronary artery disease, hypertension and asthma, was admitted for new onset A. fib with RVR and CHF exacerbation. CHF exacerbation was likely brought on by new onset atrial fibrillation. Patient was treated with Lasix 40 g IV daily with good urine output and clinical improvement. Patient was started on Eliquis for anticoagulation and had adequate rate control with Coreg. Patient had an echocardiogram performed which did not show any wall motion abnormalities, normal ejection fraction. Patient is currently be stable for discharge. Patient will also be sent home on Lasix 20 mg oral daily, recommend outpatient follow with PCP for further evaluation and adjustment of medication. HOSPITAL COURSE: As above. DISCHARGE MEDICATIONS: Please see below. ALLERGIES: Please see below. PHYSICAL EXAMINATION: VITAL SIGNS: See below GENERAL APPEARANCE: No distress HEENT: Moist mucus membranes CARDIOVASCULAR: irregularly, irregular, tachycardic LUNGS: diminished in the bases, scattered rhonchi ABDOMEN: Soft, non-tender, non-distended, +BS EXTREMITIES: b/l LE edema, significantly worse on LLE NEUROLOGICAL: No focal deficits PSYCHIATRIC: calm LABORATORY DATA: Please see below. IMAGING: Chest x-ray showing moderate to large left pleural effusion PROGNOSIS: Fair ACTIVITY: As tolerated. DIET: Cardiac DISCHARGE PLAN: Follow-up with PCP and manager city in 1-2 weeks DISPOSITION: 01 Home, Self-Care. DISCHARGE INSTRUCTIONS: 1. As above. DISCHARGE CONDITION: Stable. TIME SPENT ON DISCHARGE: Greater than 30 minutes. Vital Signs/I&Os Vital Signs Date Time Temp Pulse Resp B/P (MAP) Pulse Ox O2 Delivery O2 Flow Rate FiO2 02/22/20 16:00 97.2 74 17 127/68 (87) 95 Room Air 02/22/20 00:00 2.0 I&O- Last 24 Hours up to 6 AM 02/23/20 06:00 Intake Total 940 ml Output Total 0 ml Balance 940 ml Microbiology Microbiology 02/21/20 Blood Culture - Preliminary, Resulted No Growth after 48 hours. All Specime... 02/21/20 Blood Culture - Preliminary, Resulted No Growth after 48 hours. All Specime... Discharge Medications Scheduled Apixaban (Eliquis) 5 Mg Tablet, 5 MG PO BID Aspirin (Aspirin EC) 81 Mg Tab, 81 MG PO DAILY, (Reported) Calcium Carbonate/Vitamin D3 (Calcium 600-Vit D3 400 Tablet) 1 Each Tablet, 1 TAB PO DAILY, (Reported) Carvedilol (Carvedilol) 12.5 Mg Tab, 12.5 MG PO BID, (Reported) Cyanocobalamin (Vitamin B-12) (Vitamin B-12) 1,000 Mcg Tab, 1,000 MCG PO DAILY, (Reported) Ferrous Gluconate (Ferrous Gluconate) 324 Mg Tablet, 324 MG PO DAILY, (Reported) Furosemide (Lasix) 20 Mg Tablet, 1 TAB PO DAILY Lisinopril (Lisinopril) 10 Mg Tablet, 10 MG PO DAILY, (Reported) Lovastatin (Lovastatin) 40 Mg Tab, 40 MG PO DAILY, (Reported) Scheduled PRN Acetaminophen (Acetaminophen) 500 Mg Tablet, 1,000 MG PO Q6H PRN for PAIN, (Reported) Albuterol Sulfate (Ventolin Hfa) 108 Mcg/Act Aer, 2 PUFF INH Q4H PRN for SOB/WHEEZING, (Reported) Allergies Coded Allergies: Penicillins (Verified Adverse Reaction, Intermediate, LEG PAIN, 03/20/19) MOLINA IRVIN MD Feb 23, 2020 13:21
== END 2020-02-22 18:09 | disposition home or self-care (01) | DRG 293 ==
LOC: M ED 11:22 → M ED INP 17:54 → ENRESERVTM 18:48 → ENRESERVDT 18:48 → ENRESERVTM 18:54 → ENRESERVDT 18:54 → M PCU 19:53
PROVIDERS: ADMIT Internal Medicine; ATTEND Internal Medicine
DX: I50.9 Heart failure, unspecified (principal); I48.91 Unspecified atrial fibrillation; J45.909 Unspecified asthma, uncomplicated; I10 Essential (primary) hypertension; E78.5 Hyperlipidemia, unspecified

== ENCOUNTER → 2021-05-01 | Outpatient (CLI) | payer MEDICARE ==
[~2021-05-01] MED LIST changes: +ACET-683 PO; +ELIQ5TAB PO; -HM P99TA PO; +LASI20TA3 PO; +LISI10TA22 PO; -LISI10TA4 PO; +POTA99TA14 PO
[2021-05-01 16:12] LABS: APPEARANCE, URINE CLEAR (CLEAR); BACTERIA, URINE AUTO NEGATIVE (NEGATIVE); BILIRUBIN, URINE AUTO NEGATIVE (NEGATIVE); BLOOD, URINE BLOOD 3+ (NEGATIVE); COLOR, URINE YELLOW (YELLOW); GLUCOSE, URINE (UA) AUTO 1+ mg/dL (NEGATIVE); KETONE, URINE AUTO NEGATIVE (NEGATIVE); LEUKOCYTE ESTERASE, URINE AUTO NEGATIVE (NEGATIVE); NITRITE, URINE AUTO NEGATIVE (NEGATIVE); PROTEIN, URINE AUTO 1+ mg/dL (NEGATIVE); RBC, URINE AUTO 41 /HPF (0-3); SPECIFIC GRAVITY URINE AUTO 1.014 (1.002-1.035); SQUAMOUS EPITHELIAL CELL UR AU 1 /HPF (0-6); UROBILINOGEN, URINE AUTO 0.2 mg/dL (0.0-2.0); WBC, URINE AUTO 1 /HPF (0-3)
[2021-05-01 16:20] LABS: BASO # 0.1 10^3/uL (0.0-0.2); BASO % 0.9 % (0.0-1.0); EOS # 0.2 10^3/uL (0.0-0.5); EOS % 1.8 % (0.0-3.0); HEMATOCRIT 37.9 % (36.0-47.0); LYMPH # 1.9 10^3/uL (1.5-5.0); LYMPH % 20.8 % (24.0-44.0); MEAN CORPUSCULAR HEMOGLOBIN 28.4 pg (27.0-33.0); MEAN CORPUSCULAR HGB CONC 31.7 g/dl (32.0-36.5); MEAN CORPUSCULAR VOLUME 89.8 fl (80.0-96.0); MONO # 0.7 10^3/uL (0.0-0.8); MONO % 7.7 % (2.0-8.0); NEUTROPHILS # 6.2 10^3/uL (1.5-8.5); NEUTROPHILS % 68.5 % (36.0-66.0); PLATELET COUNT, AUTOMATED 224 10^3/uL (150-450); RED BLOOD COUNT 4.22 10^6/uL (4.00-5.40)
[2021-05-01 16:57] LABS: MALB URINE SIEMENS 80.6 MG/L; MAU/CREAT RATIO 87.6 MCG/MG (0.0-30.0)
[2021-05-01 17:07] LABS: ALBUMIN 3.6 GM/DL (3.2-5.2); ALT/SGPT 18 U/L (12-78); BILIRUBIN,TOTAL 0.4 MG/DL (0.2-1.0); BLOOD UREA NITROGEN 18 MG/DL (7-18); CALCIUM LEVEL 8.9 MG/DL (8.8-10.2); CARBON DIOXIDE LEVEL 31 MEQ/L (21-32); CHLORIDE LEVEL 106 MEQ/L (98-107); CREATININE FOR GFR 0.78 MG/DL (0.55-1.30); GLOMERULAR FILTRATION RATE > 60.0 (>39); GLUCOSE, FASTING 90 MG/DL (70-100); SODIUM LEVEL 141 MEQ/L (136-145); TOTAL PROTEIN 6.4 GM/DL (6.4-8.2)
--- NOTE | 2021-05-02 05:22 | REP ---
INDICATION: INTERSTIAL LUNG DISEASE COMPARISON: 02/21/2020, 01/12/2019 TECHNIQUE: PA and lateral. FINDINGS: The mediastinum and cardiac silhouette are normal. The lung millan demonstrate chronic relatively stable interstitial changes without acute consolidation, effusion, or pneumothorax. The skeletal structures are intact and normal. IMPRESSION: No acute cardiopulmonary process. <Electronically signed by Pedro Blas > 05/02/21 0518
== END ==
LOC: M WUC 12:16
PROVIDERS: ATTEND Family Medicine
DX: J84.9 Interstitial pulmonary disease, unspecified (principal); I10 Essential (primary) hypertension
CPT/HCPCS: 36415; 71046; 80053; 81001; 82043; 84443; 85025; G0463

== ENCOUNTER 2021-06-01 10:14 | Emergency (ER) | payer MEDICARE ==
[~2021-06-01] VITALS: Ht 124.5 cm; Wt 57.0 kg
[2021-06-01] MEDS: COMBIVENT RESPIMAT 100-20MCG INHALER 4GM INH SCH ×3 (11:31→12:11)
[2021-06-01 11:44] LABS: BASO # 0.1 10^3/uL (0.0-0.2); BASO % 0.6 % (0.0-1.0); EOS # 0.2 10^3/uL (0.0-0.5); EOS % 2.4 % (0.0-3.0); HEMATOCRIT 35.2 % (36.0-47.0); HEMOGLOBIN 11.3 g/dl (12.0-15.5); LYMPH # 1.8 10^3/uL (1.5-5.0); LYMPH % 19.6 % (24.0-44.0); MEAN CORPUSCULAR HGB CONC 32.1 g/dl (32.0-36.5); MEAN CORPUSCULAR VOLUME 90.5 fl (80.0-96.0); MONO % 10.5 % (2.0-8.0); NEUTROPHILS # 6.2 10^3/uL (1.5-8.5); NEUTROPHILS % 66.6 % (36.0-66.0); PLATELET COUNT, AUTOMATED 182 10^3/uL (150-450); RED BLOOD COUNT 3.89 10^6/uL (4.00-5.40); WHITE BLOOD COUNT 9.2 10^3/uL (4.0-10.0)
--- NOTE | 2021-06-01 12:05 | REP ---
INDICATION: SOB. COMPARISON: Two views 05/01/2021, CT 02/21/2020 TECHNIQUE: AP portable upright FINDINGS: Lungs are hyperinflated with mild coarsening of interstitial markings. Symmetric appearance of the calcified costochondral junctions unchanged. No pleural effusion, lateral pleural thickening, apical scarring or pneumothorax. No dense consolidation, atelectasis or mass. Left atrium is enlarged with elevation of the mainstem bronchus but no gross cardiomegaly, vascular redistribution or pulmonary edema. There is a tortuous calcified aorta without aneurysm, unchanged. There are degenerative changes in the spine and shoulders. Bones appear demineralized. IMPRESSION: 1. Changes of COPD with some mild chronic interstitial findings but no definite infiltrate, effusion, edema or aortic aneurysm. 2. Left atrial enlargement noted but no gross cardiomegaly overall. Calcified, ectatic and tortuous aorta unchanged. No gross aneurysm. <Electronically signed by Duane Linder > 06/01/21 [id number]
[2021-06-01] MEDS ORDERED: FUROSEMIDE 40MG/4ML VIAL (J1940) IV ONE (12:20)
[2021-06-01 15:27] VITALS: BP 119/66
--- NOTE | 2021-06-01 22:11 | ECGEPIP ---
[facility] - ED Test Date: 2021-06-01 Pat Name: LAVERNE AYALA Department: Room: - Gender: Female Hide Worker: LUZ : 1940 Requested By: Dmitry Burrows Order Number: [id number] Reading MD: Orly Campbell Measurements Intervals [place] Rate: 52 P: 68 DC: QRS: 37 QRSD: 84 T: 40 QT: 478 QTc: 444 Interpretive Statements Atrial flutter Nonspecific T wave abnormality atrial fibrillation 02/21/20 Electronically Signed on 06-01-2021 22:10:51 EDT by Orly Campbell
== END 2021-06-01 15:33 | disposition home or self-care (01) ==
LOC: M ED 10:14
DX: B34.8 Other viral infections of unspecified site (principal); I11.0 Hypertensive heart disease with heart failure; J44.9 Chronic obstructive pulmonary disease, unspecified; I48.92 Unspecified atrial flutter; I48.91 Unspecified atrial fibrillation; E78.5 Hyperlipidemia, unspecified; J45.909 Unspecified asthma, uncomplicated; Z88.0 Allergy status to penicillin; Z79.01 Long term (current) use of anticoagulants; Z79.899 Other long term (current) drug therapy
CPT/HCPCS: 71045; 80047; 83880; 85025; 87798; 93005; 94640; 96374; 99284; J1940

== ENCOUNTER 2021-10-26 08:40 | Emergency (ER) | payer MEDICARE ==
[~2021-10-26] VITALS: Ht 149.9 cm; Wt 61.4 kg
--- OUTSIDE RECORDS SUMMARY | 2021-10-26 08:46 | CCD ---
Author Author [facility] Organization [facility] Address Unknown Phone Unavailable Care Team Providers Care Advertising Account Manager Name Role Phone Sanya Ramos Unavailable PROBLEMS Type Condition ICD9-CM Code QTT09-RN Code Onset Dates Condition S tatus W/U Status Risk SNOMED Code Notes Problem Asthma, unspecified asthma s everity, unspecified whether complicated, unspecified whether persistent J45.909 Active confirmed 259144215 Problem Interstitial lung disease J84.9 Active confirmed 009195740 Problem Hypertension I10 Active confirmed 1608534 3 Problem Liver lesion K76.9 Active confirmed 4023865 00 Problem Other chronic pain G89.29 Active confirmed 8 5693944 Problem Hyperlipidemia, unspecified hyperlipidemia type E7 8.5 Active confirmed 17617720 Problem Memory changes R41.3 Active confirmed 37799 7006 Problem Liver lesion, right lobe K76.89 Active confirmed 022938660 Problem Arthritis M19.90 Active confirmed 6141788 Problem Asymptomatic microscopic hematuria R31.21 Activ e confirmed 689183488 Problem Uncontrolled hypertension I10 Active confirmed 31252329 Problem Carotid stenosis, right I65.21 Active confirmed 371252413379122 Problem Thyroid nodule E04.1 Active confirmed 10617 5005 Problem Atrial fibrillation, unspecified type I48.91 Ac tive confirmed 34969536 ALLERGIES Allergen (clinical drug ingredient) Drug/Non Drug Allergy do cumented on EMR Reaction Allergy Type Onset Date Status Penicillin (For Allergies Use Only) leg pain Drug Allerg y Active ENCOUNTERS from 1941 to 2021-10-15 Encounter Location Date Provider Diagnosis [facility] [address] [facility] [phone] [place] [address] Sep, Sanya Ramos Hypertension I10 IMMUNIZATIONS Vaccine Route Administration Date Status Influenza 18 yrs & older Flublok IM Intramuscular Aug 28, 2021 Administered Influenza 18 yrs & older Flublok IM Intramuscular Aug 14, 2019 Administered Influenza 18 yrs & older Flublok IM Intramuscular Dec 12, 2018 Administered Pneumococcal Adult 0.5mL Pneumovax 23 SC Subcutaneous Aug 03 016 Administered TDAP 0.5mL (Boostrix) IM Intramuscular June 14, 2018 Administe red Pneumococcal 0.5mL Prevnar 13 IM Intramuscular June 14, 2018 A dministered Influenza 6mo & up Fluzone Unknown Dec 20, 2017 Admin istered Influenza 6mo & up Fluzone IM Intramuscular Aug 03, 2016 Admi nistered Influenza 6mo & up Fluzone Unknown February 04, 2015 Refus ed SOCIAL HISTORY Tobacco Use: Social History Observation Description Date Details (start date - stop date) Never Smoker Sex Assigned At : Social History Observation Description Sex Assigned At Unknown Education: Question Answer Notes Level of Education: Grade School 6th grade Audit Question Answer Notes Total Score: 0 Interpretation: Alcohol Education Language: Question Answer Notes Languages spoken: Indonesian Faith: Question Answer Notes Faith 03 Gnosticist Drug and Alcohol Question Answer Notes Total Score: 0 Interpretation: No problems reported Alcohol Screening: Question Answer Notes Did you have a drink containing alcohol in the past year? No Points 0 Interpretation Negative Tobacco Use: Question Answer Notes Are you a: never smoker REASON FOR REFERRAL No Information VITAL SIGNS No information MEDICATIONS Medication SIG (Take, Route, Frequency, Duration) Notes Start Da te End Date Status Aspirin 81 MG 1 tablet Orally Once a day for 90 days Active Vitamin B12 1000 MCG 1 tablet Orally Once a day Unknown Calcium 500/D 600-400 MG-UNIT 1 tablet with food Orally Once a day for 90 days Active Carvedilol 12.5 MG 1 tab Orally bid for 90 days Active Spacer/Aero Chamber Mouthpiece 1 as directed inhaler as dire cted for 30 day(s) May, Unknown amLODIPine Besylate 2.5 MG 1 tablet Orally Once a day for 30 day (s) Jan, Unknown Iron 325 (65 Fe) MG 1 tablet Orally bid Unknown Cranberry Extract Not-Geovani ing predniSONE 10 MG as directed Orally Take 4 ta bs /day x3 days, 3 tabs/day x3 days, 2 tabs/day x3 days, 1 tab/day x3 days then stop Jan, 20 Unknown Furosemide 20 MG 1 tab Orally Daily for 90 days Active Lovastatin 40 MG TAKE 1 TABLET BY MOUTH ONCE DAILY WITH A MEAL for 90 Active Albuterol Sulfate HFA 108 (90 Base) MCG/ACT 2 puffs as needed Inhalation every 4 hrs for 30 day(s) May, Active Ferrous Sulfate 27 MG 1 tablet Orally Once a day for 30 day(s) Active Lisinopril 10 MG 1 tablet Orally Once a day for 90 days code 07 Dec, Unknown Eliquis 2.5 MG as directed Orally bid for 90 days Active Albuterol Sulfate (2.5 MG/3ML) 0.083% 3 ml as needed I nhalation every 6 hrs for 30 days May, Active Vitamin E Not-Taking Flovent HFA 110 MCG/ACT 1 puff Inhalation Twice a day for 30 days Active Lisinopril 20 MG 1 tablet Orally Once a day for 90 days Active PROCEDURES No Information RESULTS No Results REASON FOR VISIT REFILLS MEDICAL (GENERAL) HISTORY Type Description Date Medical History Hypertension Medical History Right ICA stenosis s/p carot id endarterectomy 06/2019 Dr. Cyr Medical History Hematuria Medical History hypokalemia Medical History asthma Medical History Liver hemangioma 2017 [place] Surgical History Hysterectomy abdominal with BSO 01/1968 Surgical History Colonoscopy x 2 Surgical History Glaucoma left eye 2016 Surgical History stent 2019 Hospitalization History SOB A-Fib rapid ventricular response and congestive heart failure exacerbation. 02/21/20-02/22/20 Goals Section No Information Health Concerns No Information MEDICAL EQUIPMENT No Information MENTAL STATUS No Information FUNCTIONAL STATUS No Information ASSESSMENTS Encounter Date Diagnosis Assessment Notes Treatment Notes Treatm ent Clinical Notes Sep, Hypertension (ICD-10 - I10) PLAN OF TREATMENT Medication Medication Name Sig Start Date Stop Date Eliquis 2.5 MG as directed Orally bid for 90 days Furosemide 20 MG 1 tab Orally Daily for 90 days Lisinopril 20 MG 1 tablet Orally Once a day for 90 days Next Appt Details Provider Name:Sanya Ramos, 2021-12-29 10:30:00 AM, [address] [facility], , [place], [address], Insurance Providers Payer Name Payer Address Payer Phone Insured Name Patient Relati onship to Insured Coverage Start Date Coverage End Date [facility] [address] [address] [facility] [address] [phone] [place] A[place]A self
--- OUTSIDE RECORDS SUMMARY | 2021-10-26 08:46 | CCD ---
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 Name Role Phone Sanya Ramos Unavailable PROBLEMS Type Condition ICD9-CM Code [id number] Code Onset Dates Condition S tatus W/U Status Risk SNOMED Code Notes Problem Asthma, unspecified asthma s everity, unspecified whether complicated, unspecified whether persistent J45.909 Active confirmed 413537562 Problem Interstitial lung disease J84.9 Active confirmed 235158978 Problem Hypertension I10 Active confirmed 3006776 3 Problem Liver lesion K76.9 Active confirmed 7033685 00 Problem Other chronic pain G89.29 Active confirmed 8 5224993 Problem Hyperlipidemia, unspecified hyperlipidemia type E7 8.5 Active confirmed 01516165 Problem Memory changes R41.3 Active confirmed 57777 7006 Problem Liver lesion, right lobe K76.89 Active confirmed 590673335 Problem Arthritis M19.90 Active confirmed 0890067 Problem Asymptomatic microscopic hematuria R31.21 Activ e confirmed 408583810 Problem Uncontrolled hypertension I10 Active confirmed 04291896 Problem Carotid stenosis, right I65.21 Active confirmed 221601776588600 Problem Thyroid nodule E04.1 Active confirmed 69931 5005 Problem Atrial fibrillation, unspecified type I48.91 Ac tive confirmed 00788905 ALLERGIES Allergen (clinical drug ingredient) Drug/Non Drug Allergy do cumented on EMR Reaction Allergy Type Onset Date Status Penicillin (For Allergies Use Only) leg pain Drug Allerg y Active ENCOUNTERS from 1940 to 2021-09-04 Encounter Location Date Provider Diagnosis [facility] [address] [facility] [phone] [place] [address] Aug, Sanya Ramos Hypertension I10 ; Arthritis M19.90 ; Encounter for immunization Z23 and Need for COVID-19 vaccine Z23 IMMUNIZATIONS Vaccine Route Administration Date Status Influenza [...] Education Language: Question Answer Notes Languages spoken: Estonian Advent: Question Answer Notes Advent 03 Buddhist Drug and Alcohol Question Answer Notes Total Score: 0 Interpretation: No problems reported Alcohol Screening: Question Answer Notes Did you have a drink containing alcohol in the past year? No Points 0 Interpretation Negative Tobacco Use: Question Answer Notes Are you a: never smoker REASON FOR REFERRAL No Information VITAL SIGNS Weight 134.0 lbs Aug, Weight-kg 60.78 kg Aug, Height 4'11" in Aug, BMI 27.06 kg/m2 Aug, Heart Rate 65 /min Aug, Respiratory Rate 18 /min Aug, Temperature 98.4 degrees Fahrenheit Aug, Oximetry 97 Aug, Blood pressure systolic 158 mm Hg Aug, Blood pressure diastolic 82 mm Hg Aug, MEDICATIONS Medication SIG (Take, Route, Frequency, Duration) Notes Start Da te End Date Status Aspirin 81 MG 1 tablet Orally Once a day for 90 days Active Vitamin B12 1000 MCG 1 tablet Orally Once a day Unknown Calcium 500/D 600-400 MG-UNIT 1 tablet with food Orally Once a day for 90 days Active Flovent HFA 110 MCG/ACT 1 puff Inhalation Twice a day for 30 days Active Spacer/Aero Chamber Mouthpiece 1 as directed inhaler as dire cted for 30 day(s) May, Unknown Eliquis 2.5 MG as directed Orally bid for 90 Active Iron 325 (65 Fe) MG 1 tablet Orally bid Unknown Cranberry Extract Not-Geovani ing predniSONE 10 MG as directed Orally Take 4 ta bs /day x3 days, 3 tabs/day x3 days, 2 tabs/day x3 days, 1 tab/day x3 days then stop Jan, Unknown Furosemide 20 MG 1 tab Orally Daily for 90 days Active Albuterol Sulfate HFA 108 (90 Base) MCG/ACT 2 puffs as needed Inhalation every 4 hrs for 30 day(s) May, Active Carvedilol 12.5 MG 1 tab Orally bid for 90 days Active amLODIPine Besylate 2.5 MG 1 tablet Orally Once a day for 30 day (s) Jan, Unknown Albuterol Sulfate (2.5 MG/3ML) 0.083% 3 ml as needed I nhalation every 6 hrs for 30 days May, Active Ferrous Sulfate 27 MG 1 tablet Orally Once a day for 30 day(s) Active Lovastatin 40 MG TAKE 1 TABLET BY MOUTH ONCE DAILY WITH A MEAL for 90 Active Vitamin E Not-Taking Lisinopril 20 MG 1 tablet Orally Once a day Active Lisinopril 10 MG 1 tablet Orally Once a day for 90 days code 07 Dec, Unknown PROCEDURES from 1940 to 2021-09-04 Procedure Date Ordered Result Body Site Imm: Flublok Quadrivalent 18 years & older 0.5mL IM Influenza 20 04-09-14 N/A RESULTS No Results REASON FOR VISIT 3 month f/u MEDICAL (GENERAL) HISTORY Type Description Date Medical History Hypertension Medical History Right ICA stenosis s/p carot id endarterectomy 06/2019 Dr. Cyr Medical History Hematuria Medical History hypokalemia Medical History asthma Medical History Liver hemangioma 2016 [place] Surgical History Hysterectomy abdominal with BSO [...] Notes Treatment Notes Treatm ent Clinical Notes Aug, Hypertension (ICD-10 - I10) Continue medicaitons. Check BP outside office. Goal 150/90. 14 Aug, 2021 Arthritis (ICD-10 - M19.90) Continue to take tylenol as needed for aches/ pains. Avoid nsaids. Aug, Encounter for immunization (ICD-10 - Z23) Patient Educated with: Flu Recombinant [id number] (Flu Recombinant [id number]) Recommended flu shot. Consented. Aug, Need for COVID-19 vaccine (ICD-10 - Z23) Recommend covid vaccine. Patient does not want to get due to concern from family members, has heard people dying from it. Discussed risks/ benefits of vaccine. Still recommend patient have due to risks of mario covid 19 virus. Patient will think about it. PLAN OF TREATMENT Medication Medication Name Sig Start Date Stop Date Lisinopril 20 MG 1 tablet Orally Once a day Furosemide 20 MG 1 tab Orally Daily for 90 days Treatment Notes Assessment Notes Clinical Notes Hypertension Continue medicaitons . Check BP outside office. Goal 150/90. Arthritis Continue to take tyl enol as needed for aches/ pains. Avoid nsaids. Encounter for immunization Patient Educated with: Flu Recombinant [id number] (Flu Recombinant [id number]) Recommended flu shot. Consented. Need for COVID-19 vaccine Recommend covi d vaccine. Patient does not want to get due to concern from family members, has heard people dying from it. Discussed risks/ benefits of vaccine. Still recommend patient have due to risks of mario covid 19 virus. Patient will think about it. Next Appt Details 4 mth Reason: Provider Name:Sanya Ramos, 2021-12-29 10:30:00 AM, [address] [facility], , [place], [address], Insurance Providers Payer Name Payer Address Payer Phone Insured Name Patient Relati onship to Insured Coverage Start Date Coverage End Date [facility] [address] [address] [facility] [address] [phone] [place] AYALA self
--- OUTSIDE RECORDS SUMMARY | 2021-10-26 08:46 | CCD ---
Author Author [facility] Organization [facility] Address Unknown Phone Unavailable Support Name Relationship Address Phone SHANNON AYAAL Next Of Kin [id number] [place] [address] UNEMPLOYED Next Of Kin [address] [place], [place] [id number] RE Next Of Kin Unknown Unavailable UE Next Of Kin Unknown Unavailable FABIO AYALA Next Of Kin [address] [place] [address] Misty Ayala ECON [address] [place] [address] Unavailable Fabio Ayala ECON [address] [place] [address] [phone] Re-disclosure Warning The records that you are about to access may contain information from federally-assisted alcohol or drug abuse programs. If such information is present, then the following federally mandated warning applies: This information has been disclosed to you from records protected by federal confidentiality rules (42 CFR part 2). The federal rules prohibit you from making any further disclosure of this information unless further disclosure is expressly permitted by the written consent of the person to whom it pertains or as otherwise permitted by 42 CFR part 2. A general authorization for the release of medical or other information is NOT sufficient for this purpose. The Federal rules restrict any use of the information to criminally investigate or prosecute any alcohol or drug abuse patient.The records that you are about to access may contain highly sensitive health information, the redisclosure of which is protected by Article 27-F of the [facility] Public Health law. If you continue you may have access to information: Regarding HIV / AIDS; Provided by facilities licensed or operated by the [facility] Office of Mental Health; or Provided by the [facility] Office for People With Developmental Disabilities. If such information is present, then the following [facility] mandated warning applies: This information has been disclosed to you from confidential records which are protected by state law. State law prohibits you from making any further disclosure of this information without the specific written consent of the person to whom it pertains, or as otherwise permitted by law. Any unauthorized further disclosure in violation of state law may result in a fine or [place] health [facility] sentence or both. A general authorization for the release of medical or other information is NOT sufficient authorization for further disc losure. Family History Family Member Name Family Member Gender Family Member Status Date o f Status Description Data Source(s) Unknown Male Problem MEDENT ([facility] ) Unknown Unknown Problem MEDENT ([facility], ) Unknown Female Problem MEDENT (Fabio Nickerson MD, ) Encounters Encounter Providers Location Date Indications Data Source(s ) Unknown [address] [facility] [address] 10/14/2021 12:00:00 AM EST eCW1 ([facility]) Outpatient [address] [facility] [place] [address] 08/28/2021 12:00:00 AM EDT eCW1 ([facility]) Unknown [address] [facility] [place] [address] 07/10/2021 12:00:00 AM EDT eCW1 ([facility]) Unknown [address] [facility] [place] [address] 06/02/2021 12:00:00 AM EDT eCW1 ([facility]) Outpatient [address] [facility] [place] [address] 05/27/2021 12:00:00 AM EDT eCW1 ([facility]) Outpatient [address] [facility] [place] [address] 05/01/2021 12:00:00 AM EDT eCW1 ([facility]) Unknown [address] [facility] [place] [address] 02/12/2021 12:00:00 AM EDT eCW1 ([facility]) Unknown [address] [facility] [address] [address] 12/02/2020 12:00:00 AM EST eCW1 ([facility]) [place] [address] [facility] [address] 11/18/2020 12:00:00 AM EST eCW1 ([facility]) [place] [address] [facility] [address] 11/13/2020 12:00:00 AM EST eCW1 ([facility]) Immunizations Vaccine Date Status Description Data Source(s) influenza, recombinant, quadrIvalent,injectable, prese rvative free 08/28/2021 11:58:00 AM EDT completed eCW1 ([facility]) influenza, recombinant, quadrIvalent,injectable, prese rvative free 08/28/2021 11:58:00 AM EDT completed eCW1 ([facility]) Medications Medication Brand Name Start Date Product Form Dose Route Admi nistrative Instructions Pharmacy Instructions Status Indications Reaction Description Data Source(s) 120 ACTUAT Fluticasone propionate 0.11 M G/ACTUAT Metered Dose Inhaler [Flovent] Flovent HFA 110 MCG/ACT Flovent HFA 110 MCG/ACT 05/01/2021 12:00:00 AM EDT 1.0 {puff} active Flovent HFA 110 MCG/ACT eCW1 ([facility]) Insurance Providers Payer name Policy type / Coverage type Policy ID Covered republican ID Covered republican's relationship to bryan Policy Bryan Plan Information MEDICARE BLUE PPO 306 [id number] SP [id number] MEDICARE BLUE PPO 306 [id number] SP [id number] Today's Options Medicare Commercial [id number] Self [id number] [id number] [id number] WELLCARE [id number] SP [id number] WELLCARE [id number] SP [id number] WELLCARE [id number] SP [id number] ANSI-Health Maintenance Organization (HM O) [id number] ANS-Health Maintenance Organization ( O) [id number] ANS-Health Maintenance Organization ( O) [id number] [facility] Commercial [id number] [facility] [id number] [facility]-Health Maintenance Organization ( O) [id number] [facility]-Health Maintenance Organization ( O) [id number] [facility]-Health Maintenance Organization ( O) [id number] [facility]-Health Maintenance Organization ( O) [id number] ANSI-Medicare Part B [id number] ANSI-Medicare Part B [id number] [facility] [id number] [facility] Medigap Part B [id number] Self [id number] [place] [id number] [place] [id number] MEDICARE BLUE PPO 306 [id number] SP [id number] MEDICARE BLUE PPO 306 MEDICARE BLUE PPO [id number] Self LAVERNE AYALA MEDICARE BLUE PPO 306 EXCELLUS BCBS B [id number] S [id number] [id number] [employer]CE[employer] BCBS B [id number] S [id number] BLUE CROSS BLUE SHIELD -CLINIC [id number] [employer] Blue Cross B/S Commercial [id number] Self Medicare Advantage BCBS Commercial [id number] Self BLUE CROSS BLUE SHIELD-O/P [id number] 18 [id number] BLUE CROSS BLUE SHIELD -CLINIC [id number] 1 [id number] BLUE CROSS BLUE SHIELD-O/P [id number] 18 [id number] WELLCARE [id number] SP [id number] MEDICARE [id number] SP [id number] WELLCARE O [id number] S [id number] ANSI-Health Maintenance Organization (HM O) [id number] ANSI-Health Maintenance Organization (HM O) [id number] [employer] OPTIONS [id number] SP [id number] [employer]ANTRA [employer]REEDOM [id number] SP [id number] Problems, Conditions, and Diagnoses Code Display Name Description Problem Type Effective Dates Data Source(s) M19.90 [id number] Arthritis Problem 08/28/2021 12:00:00 AM ED T eCW1 ([facility]) Surgeries/Procedures Procedure Description Date Indications Data Source(s) Imm: Flublok Quadrivalent 18 years & older 0.5mL IM Influenz a 08/28/2021 12:00:00 AM EDT eCW1 ([facility]) Results ID Date Data Source [id number] 06/01/2021 11:26:00 AM EDT [facility] Name Value Range Interpretation Code Description Data Nehal rce(s) Supporting Document(s) SARS-CoV-2 (COVID 19) NEGATIVE - SARS-CoV-2 (COVID19) [facility] This lab was ordered by [facility] a nd reported by [facility]. ID Date Data Source [id number] 05/01/2021 12:00:00 AM EDT eCW1 ([facility]) Name Value Range Interpretation Code Description Data Nehal rce(s) Supporting Document(s) Microalbumin/Creatinine [Mass Ratio] in Urine 92.0 CREATININE, URINE eCW1 ([facility]) Albumin/Creatinine [Mass Ratio] in Urine 80.6 MALB URINE SIEMENS eCW1 ([facility]) Microalbumin/Creatinine [Ratio] in Urine 87.6 0.0-30.0 SYD/CREAT RATIO eCW1 ([facility]) ID Date Data Source UA URINALYSIS 05/01/2021 12:00:00 AM EDT eCW1 ([facility]) Name Value Range Interpretation Code Description Data Nehal rce(s) Supporting Document(s) Laboratory studies (set) UA URINALYS IS eCW1 ([facility]) ID Date Data Source TSH 05/01/2021 12:00:00 AM EDT eCW1 ([facility]) Name Value Range Interpretation Code Description Data Nehal rce(s) Supporting Document(s) 1.590 0.358-3.740 THYROID STIMULATING HORM ONE eCW1 ([facility]) ID Date Data Source Comprehensive Metabolic Profile (CMP) 05/01/2021 12:00:00 AM EDT eCW1 ([facility]) Name Value Range Interpretation Code Description Data Nehal rce(s) Supporting Document(s) 90 70-100 GLUCOSE, FASTING eCW1 ([facility]) 0.78 0.55-1.30 CREATININE FOR GFR eCW1 ([facility]) > 60.0 >39 GLOMERULAR FILTRATION RATE eCW 1 ([facility]) 18 7-18 BLOOD UREA NITROGEN eCW1 ([facility]) 4.0 3.5-5.1 POTASSIUM SERUM eCW1 ([facility]) 141 136-145 SODIUM LEVEL eCW1 ([facility]) 106 98-107 CHLORIDE LEVEL eCW1 ([facility]) 8.9 8.8-10.2 CALCIUM LEVEL eCW1 ([facility]) 31 21-32 CARBON DIOXIDE LEVEL eCW1 ([facility]) 61 45-117 ALKALINE PHOSPHATASE eCW1 ([facility]) 16 7-37 AST/SGOT eCW1 ([facility]) 0.4 0.2-1.0 BILIRUBIN,TOTAL eCW1 ([facility]) 18 12-78 ALT/SGPT eCW1 ([facility]) 3.6 3.2-5.2 ALBUMIN eCW1 ([facility]) 1.3 1.2-2.2 ALBUMIN/GLOBULIN RATIO [facility] 6.4 6.4-8.2 TOTAL PROTEIN eCW1 ([facility]) ID Date Data Source CBC with Differential 05/01/2021 12:00:00 AM EDT eCW1 ([facility]) Name Value Range Interpretation Code Description Data Nehal rce(s) Supporting Document(s) 9.0 4.0-10.0 WHITE BLOOD COUNT eCW1 ([facility]) 4.22 4.00-5.40 RED BLOOD COUNT eCW1 ([facility]) 12.0 12.0-15.5 HEMOGLOBIN eCW1 ([facility]) 28.4 27.0-33.0 MEAN CORPUSCULAR HEMOGLOB IN eCW1 ([facility]) 89.8 80.0-96.0 MEAN CORPUSCULAR VOLUME e CW1 ([facility]) 37.9 36.0-47.0 HEMATOCRIT eCW1 ([facility]) 14.2 11.5-14.5 RED CELL DISTRIBUTION WID TH eCW1 ([facility]) 224 150-450 PLATELET COUNT, AUTOMATED eCW1 ([facility]) 31.7 32.0-36.5 MEAN CORPUSCULAR HGB CONC eCW1 ([facility]) 20.8 24.0-44.0 LYMPH % eCW1 ([facility]) 68.5 36.0-66.0 NEUTROPHILS % eCW1 ([facility]) 1.8 0.0-3.0 EOS % eCW1 ([facility]) 7.7 2.0-8.0 MONO % eCW1 ([facility]) 1.9 1.5-5.0 LYMPH # eCW1 ([facility]) 6.2 1.5-8.5 NEUTROPHILS # eCW1 ([facility]) 0.9 0.0-1.0 BASO % eCW1 ([facility]) 0.1 0.0-0.2 BASO # eCW1 ([facility]) 0.7 0.0-0.8 MONO # eCW1 ([facility]) 0.2 0.0-0.5 EOS # eCW1 ([facility]) Procedure Social History Code Duration Value Status Description Data Source(s ) Smoking 08/28/2021 12:00:00 AM EDT Never Smoker completed Never S moker eCW1 ([facility]) Smoking 08/28/2021 12:00:00 AM EDT Never Smoker completed Never S moker eCW1 ([facility]) Smoking 05/27/2021 12:00:00 AM EDT Never Smoker completed Never S moker eCW1 ([facility]) Smoking 05/27/2021 12:00:00 AM EDT Never Smoker completed Never S moker eCW1 ([facility]) Smoking 05/27/2021 12:00:00 AM EDT Never Smoker completed Never S moker eCW1 ([facility]) Smoking 05/01/2021 12:00:00 AM EDT Never Smoker completed Never S moker eCW1 ([facility]) Vital Signs ID Date Data Source UNK Name Value Range Interpretation Code Description Data Source(s) Body weight 134.0 [lb_av] 134.0 [lb_av] [facility] Body weight 60.78 kg 60.78 kg eCW1 ([facility]) Body height [in_i] eCW1 ([facility]) Body mass index (BMI) [Ratio] 27.06 kg/m2 27.06 kg/m2 eCW1 ([facility]) Heart rate 65 /min 65 /min eCW1 ([facility]) Respiratory rate 18 /min 18 /min eCW1 ([facility]) Body temperature 98.4 [degF] 98.4 [degF] eCW1 ( [facility]) Systolic blood pressure 158 mm[Hg] 158 mm[Hg] e CW1 ([facility]) Diastolic blood pressure 82 mm[Hg] 82 mm[Hg] eCW1 ([facility]) Body weight 128 [lb_av] 128 [lb_av] eCW1 ([facility]) Body height [in_i] eCW1 ([facility]) Body mass index (BMI) [Ratio] 25.85 kg/m2 25.85 kg/m2 eCW1 ([facility]) Respiratory rate 18 /min 18 /min eCW1 ([facility]) Body temperature 99.0 [degF] 99.0 [degF] eCW1 ( [facility]) Systolic blood pressure 150 mm[Hg] 150 mm[Hg] e CW1 ([facility]) Diastolic blood pressure 73 mm[Hg] 73 mm[Hg] eCW1 ([facility]) Heart rate 70 /min 70 /min eCW1 ([facility]) Body weight 127 [lb_av] 127 [lb_av] eCW1 ([facility]) Body height [in_i] eCW1 ([facility]) Body mass index (BMI) [Ratio] 25.65 kg/m2 25.65 kg/m2 eCW1 ([facility]) Heart rate 65 /min 65 /min eCW1 ([facility]) Respiratory rate 18 /min 18 /min eCW1 ([facility]) Body temperature 99.1 [degF] 99.1 [degF] eCW1 ( [facility]) Systolic blood pressure 200 mm[Hg] 200 mm[Hg] e CW1 ([facility]) Diastolic blood pressure mm[Hg] eCW1 ([facility]) Patient Treatment Plan of Care Planned Activity Planned Date Details Description Data Source (s) 120 ACTUAT Fluticasone propionate 0.11 MG/ACTUAT Meter ed Dose Inhaler [Flovent] 05/01/2021 12:00:00 AM EDT eCW1 ([facility])
[2021-10-26] MEDS ORDERED: ALBUTEROL 90 MCG/ACT 8GM HFA INHALER INH ONE (09:55)
--- OUTSIDE RECORDS SUMMARY | 2021-10-26 10:09 | CCD ---
Author Author [facility] Organization [facility] Address Unknown Phone Unavailable Support Name Relationship Address Phone SHANNON AYALA Next Of Kin [id number] [place] [address] UNEMPLOYED Next Of Kin [address] [place], [place] [id number] RE Next Of Kin Unknown Unavailable UE Next Of Kin Unknown Unavailable FABIO AYALA Next Of Kin [address] [place] [address] Misty Ayala ECON [address] [place] [address] Unavailable Fabio Ayala ECON [address] [place] [address] [phone] Re-disclosure Warning The records that you are [...] is protected by Article 27-F of the [facility] Public Health law. If you continue you may have access to information: Regarding HIV / AIDS; Provided by facilities licensed or operated by the [facility] Office of Mental Health; or Provided by the [facility] Office for People With Developmental Disabilities. If such information is present, then the following [facility] mandated warning applies: This information has [...] law may result in a fine or half-way sentence or both. A general authorization for the release of medical or other information is NOT sufficient authorization for further disc losure. Family History Family Member Name Family Member Gender Family Member Status Date o f Status Description Data Source(s) Unknown Male Problem MEDENT ([facility] ) Unknown Unknown Problem MEDENT ([facility], ) Unknown Female Problem MEDENT (Fabio Nickerson MD, ) Encounters Encounter Providers Location Date Indications Data Source(s ) Unknown [address] [facility] [address] 10/14/2021 12:00:00 AM EST eCW1 ([facility]) Outpatient [address] [facility] [place] [address] 08/28/2021 12:00:00 AM EDT eCW1 ([facility]) Unknown [address] [facility] [place] [address] 07/10/2021 12:00:00 AM EDT eCW1 ([facility]) Unknown [address] [facility] [place] [address] 06/02/2021 12:00:00 AM EDT eCW1 ([facility]) Outpatient [address] [facility] [place] [address] 05/27/2021 12:00:00 AM EDT eCW1 ([facility]) Outpatient [address] [facility] [place] [address] 05/01/2021 12:00:00 AM EDT eCW1 ([facility]) Unknown [address] [facility] [place] [address] 02/12/2021 12:00:00 AM EDT eCW1 ([facility]) Unknown [address] [facility] [place] [address] 12/02/2020 12:00:00 AM EST eCW1 ([facility]) [place] [address] [facility] [place] [address] 11/18/2020 12:00:00 AM EST eCW1 ([facility]) [place] [address] [facility] [address] 11/13/2020 12:00:00 AM EST eCW1 ([facility]) Immunizations Vaccine Date Status Description Data Source(s) influenza, recombinant, quadrIvalent,injectable, prese rvative free 08/28/2021 11:58:00 AM EDT completed eCW1 ([facility]) influenza, recombinant, quadrIvalent,injectable, prese rvative free 08/28/2021 11:58:00 AM EDT completed eCW1 (formerly [facility]) Medications Medication Brand Name Start Date Product Form Dose Route Admi nistrative Instructions Pharmacy Instructions Status Indications Reaction Description Data Source(s) 120 ACTUAT Fluticasone propionate 0.11 M G/ACTUAT Metered Dose Inhaler [Flovent] Flovent HFA 110 MCG/ACT Flovent HFA 110 MCG/ACT 05/01/2021 12:00:00 AM EDT 1.0 {puff} active Flovent HFA 110 MCG/ACT eCW1 ([facility]) Insurance Providers Payer name Policy type / Coverage type Policy ID Covered alliance party ID Covered alliance party's relationship to bryan Policy Bryan Plan Information MEDICARE BLUE PPO 306 [id number] SP [id number] MEDICARE BLUE PPO 306 [id number] SP [id number] Today's Options Medicare Commercial [id number] Self [id number] [place] [id number] [place] [id number] WELLCARE [id number] SP [id number] WELLCARE [id number] SP [id number] WELLCARE [id number] SP [id number] ANSI-Health Maintenance Organization (HM O) [id number] ANS-Health Maintenance Organization ( O) [id number] ANS-Health Maintenance Organization ( O) [id number] [facility] Commercial [id number] [facility] [id number] [facility]-Health Maintenance Organization ( O) [id number] [facility]-Health Maintenance Organization ( O) [id number] [facility]-Health Maintenance Organization ( O) [id number] [facility]-Health Maintenance Organization ( O) [id number] ANSI-Medicare Part B [id number] ANSI-Medicare Part B [id number] [facility] [id number] [facility] Medigap Part B [id number] Self [id number] TOD[place] [id number] [place] [id number] MEDICARE BLUE PPO 306 [id number] SP [id number] MEDICARE BLUE PPO 306 MEDICARE BLUE PPO [id number] Self LAVERNE AYALA MEDICARE BLUE PPO 306 EXCELLUS BCBS B [id number] S [id number] EXCELLUS BCBS B [id number] S [id number] BLUE CROSS BLUE SHIELD -CLINIC [id number] [employer] Blue Cross B/S Commercial [id number] Self Medicare Advantage BCBS Commercial [id number] Self BLUE CROSS BLUE SHIELD-O/P [id number] 18 [id number] BLUE CROSS BLUE SHIELD -CLINIC [id number] 1 [id number] BLUE CROSS BLUE SHIELD-O/P [id number] 18 [id number] WELLCARE [id number] SP [id number] MEDICARE [id number] SP [id number] WELLCARE O [id number] S [id number] ANSI-Health Maintenance Organization (HM O) [id number] ANSI-Health Maintenance Organization (HM O) [id number] TODAYS OPTIONS [id number] SP [id number] ADVANTRA FREEDOM [id number] SP [id number] Problems, Conditions, and Diagnoses Code Display Name Description Problem Type Effective Dates Data Source(s) M19.90 4276115 Arthritis Problem 08/28/2021 12:00:00 AM ED T eCW1 ([facility]) Surgeries/Procedures Procedure Description Date Indications Data Source(s) Imm: Flublok Quadrivalent 18 years & older 0.5mL IM Influenz a 08/28/2021 12:00:00 AM EDT eCW1 ([facility]) Results ID Date Data Source [id number] 06/01/2021 11:26:00 AM EDT [facility] Name Value Range Interpretation Code Description Data Nehal rce(s) Supporting Document(s) SARS-CoV-2 (COVID 19) NEGATIVE - SARS-CoV-2 (COVID19) [place] This lab was ordered by [facility] a nd reported by [facility]. ID Date Data Source [id number] 05/01/2021 12:00:00 AM EDT eCW1 ([facility]) Name Value Range Interpretation Code Description Data Nehal rce(s) Supporting Document(s) Microalbumin/Creatinine [Mass Ratio] in Urine 92.0 CREATININE, URINE eCW1 ([facility]) Albumin/Creatinine [Mass Ratio] in Urine 80.6 MALB URINE SIEMENS eCW1 ([facility]) Microalbumin/Creatinine [Ratio] in Urine 87.6 0.0-30.0 SYD/CREAT RATIO eCW1 ([facility]) ID Date Data Source UA URINALYSIS 05/01/2021 12:00:00 AM EDT eCW1 ([facility]) Name Value Range Interpretation Code Description Data Nehal rce(s) Supporting Document(s) Laboratory studies (set) UA URINALYS IS eCW1 ([facility]) ID Date Data Source TSH 05/01/2021 12:00:00 AM EDT eCW1 ([facility]) Name Value Range Interpretation Code Description Data Nehal rce(s) Supporting Document(s) 1.590 0.358-3.740 THYROID STIMULATING HORM ONE eCW1 ([facility]) ID Date Data Source Comprehensive Metabolic Profile (CMP) 05/01/2021 12:00:00 AM EDT eCW1 ([facility]) Name Value Range Interpretation Code Description Data Nehal rce(s) Supporting Document(s) 90 70-100 GLUCOSE, FASTING eCW1 ([facility]) 0.78 0.55-1.30 CREATININE FOR GFR eCW1 ([facility] hospital) > 60.0 >39 GLOMERULAR FILTRATION RATE eCW 1 ([facility]) 18 7-18 BLOOD UREA NITROGEN eCW1 ([facility]) 4.0 3.5-5.1 POTASSIUM SERUM eCW1 ([facility]) 141 136-145 SODIUM LEVEL eCW1 ([facility]) 106 98-107 CHLORIDE LEVEL eCW1 ([facility]) 8.9 8.8-10.2 CALCIUM LEVEL eCW1 ([facility]) 31 21-32 CARBON DIOXIDE LEVEL eCW1 ([facility]) 61 45-117 ALKALINE PHOSPHATASE eCW1 ([facility]) 16 7-37 AST/SGOT eCW1 ([facility]) 0.4 0.2-1.0 BILIRUBIN,TOTAL eCW1 ([facility]) 18 12-78 ALT/SGPT eCW1 ([facility]) 3.6 3.2-5.2 ALBUMIN eCW1 ([facility]) 1.3 1.2-2.2 ALBUMIN/GLOBULIN RATIO eCW1 ([facility]) 6.4 6.4-8.2 TOTAL PROTEIN eCW1 ([facility]) ID Date Data Source CBC with Differential 05/01/2021 12:00:00 AM EDT eCW1 ([facility]) Name Value Range Interpretation Code Description Data Nehal rce(s) Supporting Document(s) 9.0 4.0-10.0 WHITE BLOOD COUNT eCW1 ([facility]) 4.22 4.00-5.40 RED BLOOD COUNT eCW1 ([facility]) 12.0 12.0-15.5 HEMOGLOBIN eCW1 ([facility]) 28.4 27.0-33.0 MEAN CORPUSCULAR HEMOGLOB IN eCW1 ([facility]) 89.8 80.0-96.0 MEAN CORPUSCULAR VOLUME e CW1 ([facility]) 37.9 36.0-47.0 HEMATOCRIT eCW1 ([facility]) 14.2 11.5-14.5 RED CELL DISTRIBUTION WID TH eCW1 ([facility]) 224 150-450 PLATELET COUNT, AUTOMATED eCW1 ([facility]) 31.7 32.0-36.5 MEAN CORPUSCULAR HGB CONC eCW1 ([facility]) 20.8 24.0-44.0 LYMPH % eCW1 ([facility]) 68.5 36.0-66.0 NEUTROPHILS % eCW1 ([facility]) 1.8 0.0-3.0 EOS % eCW1 ([facility]) 7.7 2.0-8.0 MONO % eCW1 ([facility]) 1.9 1.5-5.0 LYMPH # eCW1 ([facility]) 6.2 1.5-8.5 NEUTROPHILS # eCW1 ([facility]) 0.9 0.0-1.0 BASO % eCW1 ([facility]) 0.1 0.0-0.2 BASO # eCW1 ([facility]) 0.7 0.0-0.8 MONO # eCW1 ([facility]) 0.2 0.0-0.5 EOS # eCW1 ([facility]) Procedure Social History Code Duration Value Status Description Data Source(s ) Smoking 08/28/2021 12:00:00 AM EDT Never Smoker completed Never S moker eCW1 ([facility]) Smoking 08/28/2021 12:00:00 AM EDT Never Smoker completed Never S moker eCW1 ([facility]) Smoking 05/27/2021 12:00:00 AM EDT Never Smoker completed Never S moker eCW1 ([facility]) Smoking 05/27/2021 12:00:00 AM EDT Never Smoker completed Never S moker eCW1 ([facility]) Smoking 05/27/2021 12:00:00 AM EDT Never Smoker completed Never S moker eCW1 ([facility]) Smoking 05/01/2021 12:00:00 AM EDT Never Smoker completed Never S moker eCW1 ([facility]) Vital Signs ID Date Data Source UNK Name Value Range Interpretation Code Description Data Source(s) Body weight 134.0 [lb_av] 134.0 [lb_av] eCW1 ([facility]) Body weight 60.78 kg 60.78 kg eCW1 ([facility]) Body height [in_i] eCW1 ([facility]) Body mass index (BMI) [Ratio] 27.06 kg/m2 27.06 kg/m2 eCW1 ([facility]) Heart rate 65 /min 65 /min eCW1 ([facility]) Respiratory rate 18 /min 18 /min eCW1 ([facility]) Body temperature 98.4 [degF] 98.4 [degF] eCW1 ( [facility]) Systolic blood pressure 158 mm[Hg] 158 mm[Hg] e CW1 ([facility]) Diastolic blood pressure 82 mm[Hg] 82 mm[Hg] eCW1 ([facility]) Body height [in_i] eCW1 ([facility]) Body mass index (BMI) [Ratio] 25.85 kg/m2 25.85 kg/m2 eCW1 ([facility]) Body weight 128 [lb_av] 128 [lb_av] eCW1 ([facility]) Respiratory rate 18 /min 18 /min eCW1 ([facility]) Body temperature 99.0 [degF] 99.0 [degF] eCW1 ( [facility]) Systolic blood pressure 150 mm[Hg] 150 mm[Hg] e CW1 ([facility]) Diastolic blood pressure 73 mm[Hg] 73 mm[Hg] eCW1 ([facility]) Heart rate 70 /min 70 /min eCW1 ([facility]) Body weight 127 [lb_av] 127 [lb_av] eCW1 ([facility]) Body height [in_i] eCW1 ([facility]) Body mass index (BMI) [Ratio] 25.65 kg/m2 25.65 kg/m2 eCW1 ([facility]) Heart rate 65 /min 65 /min eCW1 ([facility]) Respiratory rate 18 /min 18 /min eCW1 ([facility]) Body temperature 99.1 [degF] 99.1 [degF] eCW1 ( [facility]) Systolic blood pressure 200 mm[Hg] 200 mm[Hg] e CW1 ([facility]) Diastolic blood pressure mm[Hg] eCW1 ([facility]) Patient Treatment Plan of Care Planned Activity Planned Date Details Description Data Source (s) 120 ACTUAT Fluticasone propionate 0.11 MG/ACTUAT Meter ed Dose Inhaler [Flovent] 05/01/2021 12:00:00 AM EDT eCW1 ([facility])
--- NOTE | 2021-10-26 10:37 | REP ---
INDICATION: DYSPNEA/COUGH. COMPARISON: Comparison chest x-ray June 01, 2021. TECHNIQUE: Portable upright AP chest radiograph. FINDINGS: The lungs are symmetrically aerated. No infiltrate is seen. The pleural angles are sharp. Heart size is near the upper range of normal. Pulmonary vasculature is not increased. The aorta is calcific and somewhat tortuous. No acute bony abnormality. Degenerative changes are seen in the shoulders. IMPRESSION: No active disease. <Electronically signed by Amauri Ontiveros > 10/26/21 [id number]
[2021-10-26 10:50] LABS: RSV AMPLIFICATION NEGATIVE (NEGATIVE)
[2021-10-26] MEDS ORDERED: PRED20TA PO (11:19)
[2021-10-26 11:43] VITALS: BP 132/72
--- NOTE | 2021-10-26 21:07 | ECGEPIP ---
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
== END 2021-10-26 11:44 | disposition home or self-care (01) ==
LOC: M ED 08:40
DX: J45.901 Unspecified asthma with (acute) exacerbation (principal); I48.92 Unspecified atrial flutter; I48.91 Unspecified atrial fibrillation; I51.9 Heart disease, unspecified; I10 Essential (primary) hypertension; Z79.01 Long term (current) use of anticoagulants; Z79.899 Other long term (current) drug therapy; Z88.0 Allergy status to penicillin

== ENCOUNTER 2022-04-21 18:35 | Inpatient (IN) | payer MEDICARE, OTHER ==
[~2022-04-21] VITALS: Ht 149.9 cm; Wt 56.0 kg
[~2022-04-21 18:35] MED LIST changes: +ELIQ2.5T PO; +FLUT11IN INH; -LISI20TA20 PO; +LISI20TA33 PO; +LISI20TA37 PO; +PRED20TA PO
[2022-04-21] MEDS ORDERED: methylPREDNISolone 125MG 2ML VIAL IV ONE (20:30)
[2022-04-21] MEDS ORDERED: IPRATROPIUM 0.5MG/ALBUTEROL 2.5MG INH SOL UD 3ML (DUONEB) NEB ONE (20:30)
[2022-04-21 20:34] LABS: BASO % 0.6 % (0.0-1.0); EOS # 0.2 10^3/uL (0.0-0.5); EOS % 2.6 % (0.0-3.0); HEMOGLOBIN 11.3 g/dl (12.0-15.5); LYMPH % 16.1 % (24.0-44.0); MEAN CORPUSCULAR HGB CONC 32.3 g/dl (32.0-36.5); MONO # 0.9 10^3/uL (0.0-0.8); MONO % 13.8 % (2.0-8.0); NEUTROPHILS # 4.1 10^3/uL (1.5-8.5); NEUTROPHILS % 66.6 % (36.0-66.0); PLATELET COUNT, AUTOMATED 177 10^3/uL (150-450); RED BLOOD COUNT 3.89 10^6/uL (4.00-5.40); WHITE BLOOD COUNT 6.2 10^3/uL (4.0-10.0)
[2022-04-21 21:13] LABS: ALBUMIN 3.1 GM/DL (3.2-5.2); ALT/SGPT 14 U/L (12-78); BILIRUBIN,DIRECT 0.1 MG/DL (0.0-0.2); BILIRUBIN,TOTAL 0.3 MG/DL (0.2-1.0); BLOOD UREA NITROGEN 16 MG/DL (7-18); CALCIUM LEVEL 8.7 MG/DL (8.8-10.2); CARBON DIOXIDE LEVEL 31 MEQ/L (21-32); CHLORIDE LEVEL 108 MEQ/L (98-107); CREATININE FOR GFR 0.72 MG/DL (0.55-1.30); GLOMERULAR FILTRATION RATE > 60.0 (>32); GLUCOSE, FASTING 111 MG/DL (70-100); NT-PRO BNP 947 PG/ML (<450); POTASSIUM SERUM 3.6 MEQ/L (3.5-5.1); SODIUM LEVEL 145 MEQ/L (136-145); THYROXINE (T4) 9.5 UG/DL (4.5-12.0); TOTAL PROTEIN 5.9 GM/DL (6.4-8.2)
[2022-04-21] MEDS ORDERED: hydrALAZINE 20MG/ML 1ML VIAL (J0360 PER 20MG) IV STA (21:18)
[2022-04-21] MEDS ORDERED: CARVedilol 12.5 MG TAB PO ONE (21:20)
[2022-04-21 21:31] LABS: ABG BASE EXCESS 1.8 (-2.0-2.0); ABG HCO3 27.5 MEQ/L (22.0-26.0); ABG O2 SATURATION 99.2 % (95.0-99.0); ABG PARTIAL PRESSURE CO2 47.9 mmHg (35.0-45.0); ABG PARTIAL PRESSURE O2 171.8 mmHg (75.0-100.0); ABG STANDARD HCO3 26.1 MEQ/L (22.0-26.0); ABG pH (ARTERIAL) 7.377 UNITS (7.350-7.450)
[2022-04-21] MEDS ORDERED: ALBUTEROL SULFATE 2.5 MG/0.5 ML INH NEB SOLN NEB PRN (23:30)
[2022-04-21] MEDS ORDERED: ALBUTEROL 90 MCG/ACT 8GM HFA INHALER INH PRN (23:30)
[2022-04-22] VITALS (11 sets, daily range): BP systolic 128–212; BP diastolic 58–92; O2SAT 92–96
[2022-04-22] MEDS ORDERED: HOME MED LIST COMPLETE! XX SCH (00:55)
[2022-04-22] MEDS ORDERED: ASPI-161 PO (00:55)
[2022-04-22] MEDS: methylPREDNISolone 40MG 1ML VIAL IV SCH ×2 (02:32→09:13)
[2022-04-22] MEDS ORDERED: **hydrALAZINE** 50 MG TAB PO ONE (02:35)
[2022-04-22] MEDS: IPRATROPIUM 0.5MG/ALBUTEROL 2.5MG INH SOL UD 3ML (DUONEB) NEB SCH ×4 (02:41→19:37)
[2022-04-22] MEDS ORDERED: DICYCLOMINE 10 MG CAP PO ONE (04:15)
[2022-04-22 05:54] LABS: BASO % 0.2 % (0.0-1.0); HEMATOCRIT 36.7 % (36.0-47.0); HEMOGLOBIN 11.9 g/dl (12.0-15.5); LYMPH # 0.7 10^3/uL (1.5-5.0); LYMPH % 10.8 % (24.0-44.0); MEAN CORPUSCULAR HGB CONC 32.4 g/dl (32.0-36.5); MEAN CORPUSCULAR VOLUME 89.3 fl (80.0-96.0); MONO # 0.1 10^3/uL (0.0-0.8); MONO % 1.1 % (2.0-8.0); NEUTROPHILS # 5.8 10^3/uL (1.5-8.5); NEUTROPHILS % 87.3 % (36.0-66.0); PLATELET COUNT, AUTOMATED 184 10^3/uL (150-450); RED BLOOD COUNT 4.11 10^6/uL (4.00-5.40); WHITE BLOOD COUNT 6.6 10^3/uL (4.0-10.0)
[2022-04-22] MEDS: SYMBICORT 80/4.5MCG INHALER 6GM INH SCH ×2 (06:08→19:37)
[2022-04-22 06:23] LABS: ALBUMIN 3.2 GM/DL (3.2-5.2); ALT/SGPT 15 U/L (12-78); BILIRUBIN,TOTAL 0.3 MG/DL (0.2-1.0); BLOOD UREA NITROGEN 17 MG/DL (7-18); CALCIUM LEVEL 9.1 MG/DL (8.8-10.2); CARBON DIOXIDE LEVEL 28 MEQ/L (21-32); CHLORIDE LEVEL 108 MEQ/L (98-107); CREATININE FOR GFR 0.68 MG/DL (0.55-1.30); GLOMERULAR FILTRATION RATE > 60.0 (>32); GLUCOSE, FASTING 166 MG/DL (70-100); POTASSIUM SERUM 3.5 MEQ/L (3.5-5.1); SODIUM LEVEL 144 MEQ/L (136-145); TOTAL PROTEIN 6.1 GM/DL (6.4-8.2)
[2022-04-22] MEDS ORDERED: predniSONE 5 MG TAB PO SCH (09:00)
[2022-04-22] MEDS: SIMVASTATIN 40 MG TAB PO SCH (09:13)
[2022-04-22] MEDS: ASPIRIN 81MG ENTERIC TABLET PO SCH (09:13)
[2022-04-22] MEDS: APIXABAN 2.5 MG TAB (ELIQUIS) PO SCH ×2 (09:13→20:49)
[2022-04-22] MEDS: CARVedilol 12.5 MG TAB PO SCH ×2 (09:14→20:50)
[2022-04-22] MEDS ORDERED: ACETAMINOPHEN TAB 650MG DOSE (2X325MG) PO PRN (15:20)
[2022-04-22] MEDS ORDERED: methylPREDNISolone 40MG 1ML VIAL IV SCH (21:00)
[2022-04-23 00:56] VITALS: O2SAT 92
[2022-04-23] MEDS: IPRATROPIUM 0.5MG/ALBUTEROL 2.5MG INH SOL UD 3ML (DUONEB) NEB SCH ×2 (01:52→07:37)
[2022-04-23 02:00] VITALS: BP 155/83
[2022-04-23 06:00] VITALS: BP 154/80
[2022-04-23 06:27] LABS: BASO % 0.1 % (0.0-1.0); HEMATOCRIT 33.7 % (36.0-47.0); HEMOGLOBIN 11.1 g/dl (12.0-15.5); LYMPH # 0.9 10^3/uL (1.5-5.0); LYMPH % 5.8 % (24.0-44.0); MEAN CORPUSCULAR HEMOGLOBIN 29.4 pg (27.0-33.0); MEAN CORPUSCULAR HGB CONC 32.9 g/dl (32.0-36.5); MEAN CORPUSCULAR VOLUME 89.2 fl (80.0-96.0); MONO # 0.5 10^3/uL (0.0-0.8); NEUTROPHILS # 14.4 10^3/uL (1.5-8.5); NEUTROPHILS % 90.3 % (36.0-66.0); PLATELET COUNT, AUTOMATED 200 10^3/uL (150-450); RED BLOOD COUNT 3.78 10^6/uL (4.00-5.40)
[2022-04-23 06:56] LABS: BILIRUBIN,TOTAL 0.2 MG/DL (0.2-1.0); CALCIUM LEVEL 8.3 MG/DL (8.8-10.2); CREATININE FOR GFR 1.05 MG/DL (0.55-1.30); GLOMERULAR FILTRATION RATE 53.7 (>32); POTASSIUM SERUM 3.1 MEQ/L (3.5-5.1); TOTAL PROTEIN 6.5 GM/DL (6.4-8.2)
[2022-04-23] MEDS ORDERED: POTASSIUM CHLORIDE 10MEQ SR TABLET PO ONE (07:15)
[2022-04-23] MEDS: SYMBICORT 80/4.5MCG INHALER 6GM INH SCH (07:37)
[2022-04-23 08:06] LABS: MAGNESIUM LEVEL 2.3 MG/DL (1.8-2.4)
[2022-04-23 08:15] VITALS: O2SAT 92
[2022-04-23] MEDS: ASPIRIN 81MG ENTERIC TABLET PO SCH (08:31)
[2022-04-23] MEDS: APIXABAN 2.5 MG TAB (ELIQUIS) PO SCH (08:32)
[2022-04-23] MEDS: SIMVASTATIN 40 MG TAB PO SCH (08:32)
[2022-04-23 08:34] VITALS: BP 150/68
[2022-04-23] MEDS: CARVedilol 12.5 MG TAB PO SCH (08:35)
[2022-04-23] MEDS ORDERED: predniSONE 20 MG TAB PO SCH (09:00)
[2022-04-23] MEDS ORDERED: AMLO1TAB25 PO (09:22)
[2022-04-23] MEDS ORDERED: PRED20TA PO ×2 (09:22→10:20)
== END 2022-04-23 13:48 | disposition home or self-care (01) | DRG 203 ==
LOC: M ED 18:35 → M ED INP 04-22 00:59 → M MSPAV 04-22 02:02
PROVIDERS: ADMIT Internal Medicine; ATTEND Internal Medicine
DX: J45.901 Unspecified asthma with (acute) exacerbation (principal); I48.91 Unspecified atrial fibrillation; I10 Essential (primary) hypertension; I16.0 Hypertensive urgency; I25.10 Atherosclerotic heart disease of native coronary artery without angina pectoris; E78.5 Hyperlipidemia, unspecified; B97.81 Human metapneumovirus as the cause of diseases classified elsewhere; E87.6 Hypokalemia; J06.9 Acute upper respiratory infection, unspecified; Z66 Do not resuscitate; Z79.01 Long term (current) use of anticoagulants; Z95.5 Presence of coronary angioplasty implant and graft; Z79.82 Long term (current) use of aspirin; Z79.899 Other long term (current) drug therapy; Z88.0 Allergy status to penicillin

== ENCOUNTER → 2022-08-11 | Outpatient (CLI) | payer MEDICARE, OTHER ==
[~2022-08-11] MED LIST changes: +AMLO1TAB25 PO; +ASPI-161 PO
[2022-08-11 17:27] LABS: BLOOD UREA NITROGEN 18 MG/DL (7-18); CALCIUM LEVEL 8.8 MG/DL (8.8-10.2); CARBON DIOXIDE LEVEL 31 MEQ/L (21-32); CHLORIDE LEVEL 106 MEQ/L (98-107); CHOLESTEROL LEVEL 166 MG/DL (<200); CHOLESTEROL RISK RATIO 3.132 (<5); CREATININE FOR GFR 0.86 MG/DL (0.55-1.30); GLOMERULAR FILTRATION RATE > 60.0 (>32); GLUCOSE, FASTING 83 MG/DL (70-100); HDL CHOLESTEROL 53 MG/DL (>40); LDL CHOLESTEROL 85 MG/DL (<100); NON-HDL-C 113 MG/DL; POTASSIUM SERUM 4.2 MEQ/L (3.5-5.1); SODIUM LEVEL 139 MEQ/L (136-145); TRIGLYCERIDES LEVEL 142 MG/DL (<150)
== END ==
LOC: M WUC 14:16
PROVIDERS: ATTEND Family Medicine
DX: E78.5 Hyperlipidemia, unspecified (principal); I10 Essential (primary) hypertension

== ENCOUNTER 2022-08-20 07:12 | Emergency (ER) | payer MEDICARE, OTHER ==
[~2022-08-20] VITALS: Ht 149.9 cm; Wt 57.1 kg
[~2022-08-20 07:12] MED LIST changes: +ALBUTEROL SULFATE 2.5 MG/0.5 ML INH NEB SOLN INH PRN; +EPINEPHrine INJ 1 MG/ML 1ML AMP IM PRN; +diphenhydrAMINE 50MG/ML VIAL (J1200) IV PRN; +methylPREDNISolone 125MG 2ML VIAL IV PRN
[2022-08-20] MEDS ORDERED: FLUTISP NARES (07:20)
[2022-08-20] MEDS ORDERED: IPRATROPIUM 0.5MG/ALBUTEROL 2.5MG INH SOL UD 3ML (DUONEB) NEB ONE (07:55)
[2022-08-20] MEDS ORDERED: predniSONE 20 MG TAB PO ONE (07:55)
[2022-08-20 08:40] LABS: BASO % 0.6 % (0.0-1.0); HEMATOCRIT 36.2 % (36.0-47.0); HEMOGLOBIN 11.6 g/dl (12.0-15.5); LYMPH # 0.8 10^3/uL (1.5-5.0); LYMPH % 12.2 % (24.0-44.0); MEAN CORPUSCULAR HEMOGLOBIN 28.2 pg (27.0-33.0); MEAN CORPUSCULAR VOLUME 88.1 fl (80.0-96.0); MONO # 0.8 10^3/uL (0.0-0.8); MONO % 12.1 % (2.0-8.0); NEUTROPHILS # 5.1 10^3/uL (1.5-8.5); NEUTROPHILS % 74.8 % (36.0-66.0); PLATELET COUNT, AUTOMATED 165 10^3/uL (150-450); RED BLOOD COUNT 4.11 10^6/uL (4.00-5.40); WHITE BLOOD COUNT 6.8 10^3/uL (4.0-10.0)
[2022-08-20 09:23] LABS: CK-MB VALUE MASS 1.2 NG/ML (<3.6); MB/CK RELATIVE INDEX 0.93 (< OR =4)
[2022-08-20 09:26] LABS: ALBUMIN 3.3 GM/DL (3.2-5.2); ALT/SGPT 17 U/L (12-78); BILIRUBIN,DIRECT 0.2 MG/DL (0.0-0.2); BILIRUBIN,TOTAL 0.5 MG/DL (0.2-1.0); BLOOD UREA NITROGEN 17 MG/DL (7-18); CALCIUM LEVEL 8.5 MG/DL (8.8-10.2); CARBON DIOXIDE LEVEL 30 MEQ/L (21-32); CHLORIDE LEVEL 104 MEQ/L (98-107); CREATININE FOR GFR 0.82 MG/DL (0.55-1.30); GLOMERULAR FILTRATION RATE > 60.0 (>32); GLUCOSE, FASTING 118 MG/DL (70-100); POTASSIUM SERUM 3.6 MEQ/L (3.5-5.1); SODIUM LEVEL 138 MEQ/L (136-145); THYROID STIMULATING HORMONE 0.817 uIU/ML (0.358-3.740); THYROXINE (T4) 7.7 UG/DL (4.5-12.0); TOTAL PROTEIN 6.1 GM/DL (6.4-8.2)
[2022-08-20] MEDS ORDERED: PRED20TA PO (09:50)
[2022-08-20] MEDS ORDERED: HOME MED LIST COMPLETE! XX SCH (11:00)
[2022-08-20] MEDS ORDERED: AMLO1TAB25 PO (11:00)
[2022-08-20] MEDS ORDERED: BEBTELOVIMAB 175MG 2ML VIAL (EUA) IV ONE ×2 (11:25→12:00)
[2022-08-20] MEDS ORDERED: NS 1,000 ML IV SCH (11:45)
[2022-08-20 15:12] VITALS: BP 155/75
[2022-08-20] MEDS ORDERED: NIRMATRELVIR/RITONAVIR CO-PACK (EMERGENCY USE AUTH) PO SCH (21:00)
== END 2022-08-20 15:17 | disposition home or self-care (01) ==
LOC: M ED 07:12
DX: J45.901 Unspecified asthma with (acute) exacerbation (principal); U07.1 COVID-19; I25.10 Atherosclerotic heart disease of native coronary artery without angina pectoris; I10 Essential (primary) hypertension; Z79.01 Long term (current) use of anticoagulants; Z88.0 Allergy status to penicillin
CPT/HCPCS: 36415; 71046; 80048; 80076; 82550; 82553; 83605; 84436; 84443; 84484; 85025; 87486; 87581; 87633; 87798; 93005; 94640; 99284; J7512

== ENCOUNTER 2022-09-04 16:27 | Inpatient (IN) | payer MEDICARE ==
[~2022-09-04] VITALS: Ht 149.9 cm; Wt 54.9 kg
[~2022-09-04 16:27] MED LIST changes: -ALBUTEROL SULFATE 2.5 MG/0.5 ML INH NEB SOLN INH PRN; -EPINEPHrine INJ 1 MG/ML 1ML AMP IM PRN; +FLUTISP NARES; -diphenhydrAMINE 50MG/ML VIAL (J1200) IV PRN; -methylPREDNISolone 125MG 2ML VIAL IV PRN
[2022-09-04 17:25] LABS: BASO % 0.3 % (0.0-1.0); EOS # 0.3 10^3/uL (0.0-0.5); EOS % 2.4 % (0.0-3.0); HEMATOCRIT 37.1 % (36.0-47.0); HEMOGLOBIN 11.4 g/dl (12.0-15.5); LYMPH % 16.8 % (24.0-44.0); MEAN CORPUSCULAR HEMOGLOBIN 27.6 pg (27.0-33.0); MEAN CORPUSCULAR HGB CONC 30.7 g/dl (32.0-36.5); MEAN CORPUSCULAR VOLUME 89.8 fl (80.0-96.0); MONO % 8.5 % (2.0-8.0); NEUTROPHILS # 8.4 10^3/uL (1.5-8.5); NEUTROPHILS % 71.6 % (36.0-66.0); PLATELET COUNT, AUTOMATED 306 10^3/uL (150-450); RED BLOOD COUNT 4.13 10^6/uL (4.00-5.40); WHITE BLOOD COUNT 11.7 10^3/uL (4.0-10.0)
[2022-09-04 18:09] LABS: CK-MB VALUE MASS 1.1 NG/ML (<3.6); MB/CK RELATIVE INDEX 3.44 (< OR =4)
[2022-09-04 18:23] LABS: ALBUMIN 2.6 GM/DL (3.2-5.2); ALT/SGPT 17 U/L (12-78); BILIRUBIN,DIRECT < 0.1 MG/DL (0.0-0.2); BILIRUBIN,TOTAL 0.7 MG/DL (0.2-1.0); BLOOD UREA NITROGEN 46 MG/DL (7-18); CALCIUM LEVEL 8.5 MG/DL (8.8-10.2); CARBON DIOXIDE LEVEL 25 MEQ/L (21-32); CHLORIDE LEVEL 107 MEQ/L (98-107); CREATININE FOR GFR 3.31 MG/DL (0.55-1.30); GLOMERULAR FILTRATION RATE 14.2 (>32); GLUCOSE, FASTING 90 MG/DL (70-100); LIPASE 101 U/L (73-393); NT-PRO BNP 1448 PG/ML (<450); POTASSIUM SERUM 5.5 MEQ/L (3.5-5.1); SODIUM LEVEL 139 MEQ/L (136-145); TOTAL PROTEIN 5.9 GM/DL (6.4-8.2)
[2022-09-04] MEDS ORDERED: GI COCKTAIL 50ML BTL(HYOSCYAMINE/MAALOX/LIDOCAINE VISCOUS)(1:3:1) PO ONE (20:45)
[2022-09-04] MEDS ORDERED: NS 500 ML IV ONE (22:45)
[2022-09-04] MEDS ORDERED: MED REC COMMENT (23:13)
[2022-09-04] MEDS ORDERED: HOME MED LIST COMPLETE! XX SCH (23:15)
[2022-09-04 23:23] LABS: TOTAL PROTEIN,RANDOM URINE 35.7 MG/DL (0.0-12.0)
[2022-09-04] MEDS ORDERED: ACETAMINOPHEN TAB 650MG DOSE (2X325MG) PO PRN (23:40)
[2022-09-04] MEDS: NS 1,000 ML IV SCH (23:40)
[2022-09-04] MEDS ORDERED: guaiFENesin DM LIQ 10ML UD PO PRN (23:40)
[2022-09-05 00:23] LABS: MAGNESIUM LEVEL 2.1 MG/DL (1.8-2.4); URIC ACID 6.9 MG/DL (2.6-6.0)
[2022-09-05] MEDS: APIXABAN 2.5 MG TAB (ELIQUIS) PO SCH ×2 (00:35→09:22)
[2022-09-05 00:42] LABS: OSMOLALITY SERUM 301 MOSM/KG (280-301)
[2022-09-05] MEDS ORDERED: ALBUTEROL SULFATE 2.5 MG/0.5 ML INH NEB SOLN NEB PRN (01:00)
[2022-09-05] MEDS ORDERED: PANTOPRAZOLE 40MG VIAL IV ONE (01:00)
[2022-09-05] MEDS ORDERED: CIPROFLOXACIN 400 MG in IV 1 EA IV ONE (01:00)
[2022-09-05] MEDS: IPRATROPIUM 0.5MG/ALBUTEROL 2.5MG INH SOL UD 3ML (DUONEB) NEB SCH ×2 (01:34→08:39)
[2022-09-05 05:14] LABS: CREATININE,RANDOM URINE 89.7 MG/DL
[2022-09-05 08:47] LABS: BLOOD UREA NITROGEN 21 MG/DL (7-18); CALCIUM LEVEL 8.2 MG/DL (8.8-10.2); CARBON DIOXIDE LEVEL 28 MEQ/L (21-32); CHLORIDE LEVEL 110 MEQ/L (98-107); CREATININE FOR GFR 0.77 MG/DL (0.55-1.30); GLOMERULAR FILTRATION RATE > 60.0 (>32); GLUCOSE, FASTING 111 MG/DL (70-100); PHOSPHORUS LEVEL 3.2 MG/DL (2.5-4.9); POTASSIUM SERUM 4.1 MEQ/L (3.5-5.1); SODIUM LEVEL 142 MEQ/L (136-145)
[2022-09-05] MEDS ORDERED: ASPIRIN 81 MG CHEW TABLET PEG SCH (09:00)
[2022-09-05] MEDS ORDERED: GUAISYP5 PO (09:20)
[2022-09-05] MEDS ORDERED: ASPI81CH8 PEG (09:20)
[2022-09-05] MEDS ORDERED: PULM0.25 NEB (09:20)
[2022-09-05] MEDS ORDERED: LEVO750T14 PO (09:24)
[2022-09-05] MEDS: NS 1,000 ML IV SCH (09:24)
[2022-09-05] MEDS ORDERED: CEFD300C41 PO ×2 (09:30→09:42)
[2022-09-05] MEDS ORDERED: PULM90IN INH (09:31)
[2022-09-05] MEDS ORDERED: PRED20TA PO (09:40)
[2022-09-05 12:00] VITALS: BP 148/70
[2022-09-06] MEDS ORDERED: ALBUTEROL SULFATE 2.5 MG/0.5 ML INH NEB SOLN NEB ONE
[2022-09-06] MEDS ORDERED: CIPROFLOXACIN 200 MG in IV 1 EA IV SCH (01:00)
== END 2022-09-05 13:41 | disposition home or self-care (01) | DRG 202 ==
LOC: M ED 17:33 → M ED INP 23:37
PROVIDERS: ADMIT Internal Medicine; ATTEND Internal Medicine
DX: J20.6 Acute bronchitis due to rhinovirus (principal); N17.9 Acute kidney failure, unspecified; N39.0 Urinary tract infection, site not specified; J45.901 Unspecified asthma with (acute) exacerbation; I48.91 Unspecified atrial fibrillation; I10 Essential (primary) hypertension; E87.5 Hyperkalemia; R07.89 Other chest pain; R06.6 Hiccough; Z66 Do not resuscitate; Z88.0 Allergy status to penicillin; Z79.01 Long term (current) use of anticoagulants; Z79.899 Other long term (current) drug therapy; Z86.16 Personal history of COVID-19

== ENCOUNTER → 2022-09-16 | Outpatient (CLI) | payer MEDICARE, OTHER ==
[~2022-09-16] MED LIST changes: +ASPI81CH8 PEG; +CEFD300C41 PO; +GUAISYP5 PO; +LEVO750T14 PO; +MED REC COMMENT; +PULM0.25 NEB; +PULM90IN INH
[2022-09-16 20:21] LABS: ALBUMIN 2.9 GM/DL (3.2-5.2); ALT/SGPT 20 U/L (12-78); BILIRUBIN,TOTAL 0.2 MG/DL (0.2-1.0); BLOOD UREA NITROGEN 14 MG/DL (7-18); CALCIUM LEVEL 8.5 MG/DL (8.8-10.2); CARBON DIOXIDE LEVEL 31 MEQ/L (21-32); CHLORIDE LEVEL 105 MEQ/L (98-107); CREATININE FOR GFR 0.86 MG/DL (0.55-1.30); GLOMERULAR FILTRATION RATE > 60.0 (>32); GLUCOSE, FASTING 114 MG/DL (70-100); POTASSIUM SERUM 3.6 MEQ/L (3.5-5.1); SODIUM LEVEL 141 MEQ/L (136-145); TOTAL PROTEIN 5.4 GM/DL (6.4-8.2)
== END ==
LOC: M WUC 13:08
PROVIDERS: ATTEND Family Medicine
DX: N17.9 Acute kidney failure, unspecified (principal); D64.9 Anemia, unspecified

== ENCOUNTER → 2022-09-23 | Outpatient (REF) | payer OTHER, MEDICARE ==
[2022-09-23 16:47] LABS: BASO % 0.6 % (0.0-1.0); EOS # 0.1 10^3/uL (0.0-0.5); EOS % 1.8 % (0.0-3.0); HEMATOCRIT 32.3 % (36.0-47.0); LYMPH # 1.8 10^3/uL (1.5-5.0); LYMPH % 25.2 % (24.0-44.0); MEAN CORPUSCULAR HEMOGLOBIN 28.1 pg (27.0-33.0); MEAN CORPUSCULAR VOLUME 90.7 fl (80.0-96.0); MONO # 0.6 10^3/uL (0.0-0.8); MONO % 8.6 % (2.0-8.0); NEUTROPHILS # 4.5 10^3/uL (1.5-8.5); NEUTROPHILS % 63.2 % (36.0-66.0); PLATELET COUNT, AUTOMATED 193 10^3/uL (150-450); RED BLOOD COUNT 3.56 10^6/uL (4.00-5.40); WHITE BLOOD COUNT 7.1 10^3/uL (4.0-10.0)
== END ==
LOC: M WUC 16:12
PROVIDERS: ATTEND Family Medicine
DX: D64.9 Anemia, unspecified (principal)

== ENCOUNTER 2022-11-18 14:57 | Inpatient (IN) | payer MEDICARE, OTHER ==
[~2022-11-18] VITALS: Ht 149.9 cm; Wt 54.6 kg
[2022-11-18] VITALS (7 sets, daily range): BP systolic 118–239; BP diastolic 64–133; PULSE 71
[2022-11-18] MEDS ORDERED: ALBUTEROL SULFATE 2.5MG/0.5ML INH NEB SOLN INH ONE (15:10)
[2022-11-18] MEDS ORDERED: IPRATROPIUM 0.5MG/ALBUTEROL 2.5MG INH SOL UD 3ML (DUONEB) NEB ONE (15:10)
[2022-11-18] MEDS ORDERED: LevoFLOXacin IV 750 MG in IV 1 EA IV ONE (15:25)
[2022-11-18 15:26] LABS: ABG BASE EXCESS -4.2 (-2.0-2.0); ABG HCO3 23.7 MEQ/L (22.0-26.0); ABG O2 SATURATION 99.7 % (95.0-99.0); ABG PARTIAL PRESSURE CO2 54.7 mmHg (35.0-45.0); ABG PARTIAL PRESSURE O2 298.2 mmHg (75.0-100.0); ABG STANDARD HCO3 21.1 MEQ/L (22.0-26.0); ABG TOTAL CO2 25.3 MEQ/L (23.0-31.0); ABG pH (ARTERIAL) 7.254 UNITS (7.350-7.450)
[2022-11-18 15:30] LABS: BASO # 0.2 10^3/uL (0.0-0.2); BASO % 0.8 % (0.0-1.0); EOS # 0.3 10^3/uL (0.0-0.5); EOS % 1.4 % (0.0-3.0); HEMATOCRIT 47.2 % (36.0-47.0); HEMOGLOBIN 14.3 g/dl (12.0-15.5); LYMPH # 9.6 10^3/uL (1.5-5.0); MEAN CORPUSCULAR HEMOGLOBIN 27.6 pg (27.0-33.0); MEAN CORPUSCULAR HGB CONC 30.3 g/dl (32.0-36.5); MEAN CORPUSCULAR VOLUME 91.1 fl (80.0-96.0); MONO # 1.5 10^3/uL (0.0-0.8); MONO % 7.3 % (2.0-8.0); NEUTROPHILS # 8.8 10^3/uL (1.5-8.5); NEUTROPHILS % 43.2 % (36.0-66.0); PLATELET COUNT, AUTOMATED 339 10^3/uL (150-450); RED BLOOD COUNT 5.18 10^6/uL (4.00-5.40); WHITE BLOOD COUNT 20.5 10^3/uL (4.0-10.0)
[2022-11-18 15:41] LABS: INR 0.94; PROTHROMBIN TIME 12.8 SECONDS (12.5-14.5)
[2022-11-18 15:55] LABS: BILIRUBIN,DIRECT 0.1 MG/DL (<0.4)
[2022-11-18 15:56] LABS: ALBUMIN 3.7 G/DL (3.2-5.2); ALKALINE PHOSPHATASE 100 U/L (46-116); ALT/SGPT < 9 U/L (7.0-40); AST/SGOT 22 U/L (<34); BILIRUBIN,TOTAL 0.4 MG/DL (0.3-1.2); BLOOD UREA NITROGEN 18 MG/DL (9-23); CARBON DIOXIDE LEVEL 26 MMOL/L (20-31); CHLORIDE LEVEL 100 MMOL/L (98-107); CK-MB VALUE MASS < 1.0 NG/ML (<3.6); CPK CREATINE PHOSPHOKINASE 50 U/L (34-145); CREATININE FOR GFR 0.93 MG/DL (0.55-1.30); GLOMERULAR FILTRATION RATE > 60.0 (>32); GLUCOSE, FASTING 177 MG/DL (74-106); POTASSIUM SERUM 4.2 MMOL/L (3.5-5.1); SODIUM LEVEL 140 MMOL/L (136-145); TOTAL PROTEIN 7.3 G/DL (5.7-8.2)
[2022-11-18 15:59] LABS: THYROID STIMULATING HORMONE 8.969 uIU/ML (0.55-4.78)
[2022-11-18 17:05] LABS: CK-MB VALUE MASS < 1.0 NG/ML (<3.6)
[2022-11-18 17:08] LABS: CPK CREATINE PHOSPHOKINASE 42 U/L (34-145); MB/CK RELATIVE INDEX 2.38 (< OR =4)
[2022-11-18] MEDS ORDERED: CARV12.5 PO (17:36)
[2022-11-18] MEDS: BUDESONIDE 0.5 MG/2 ML INHALATION SUSPENSION INH SCH (18:58)
[2022-11-18] MEDS: ALBUTEROL SULFATE 2.5MG/0.5ML INH NEB SOLN NEB SCH (18:58)
[2022-11-18] MEDS ORDERED: med rec comment (19:02)
[2022-11-18] MEDS ORDERED: HOME MED LIST COMPLETE! XX SCH (19:05)
[2022-11-18] MEDS: methylPREDNISolone 40MG 1ML VIAL IV SCH (19:43)
[2022-11-18] MEDS ORDERED: hydrALAZINE 20MG/ML 1ML VIAL IV STA (20:30)
[2022-11-18] MEDS ORDERED: SIMVASTATIN 40 MG TAB PO SCH (21:00)
[2022-11-18 21:14] LABS: ABG BASE EXCESS 2.9 (-2.0-2.0); ABG HCO3 24.2 MEQ/L (22.0-26.0); ABG O2 SATURATION 99.2 % (95.0-99.0); ABG PARTIAL PRESSURE CO2 27.6 mmHg (35.0-45.0); ABG PARTIAL PRESSURE O2 146.7 mmHg (75.0-100.0); ABG STANDARD HCO3 27.1 MEQ/L (22.0-26.0)
[2022-11-18] MEDS: APIXABAN 2.5 MG TAB (ELIQUIS) PO SCH (21:14)
[2022-11-19] VITALS (48 sets, daily range): BP systolic 98–206; BP diastolic 51–116; PULSE 71–92; O2SAT 96
[2022-11-19] MEDS: methylPREDNISolone 40MG 1ML VIAL IV SCH ×4 (00:12→18:08)
[2022-11-19 03:11] LABS: HEMATOCRIT 36.2 % (36.0-47.0); HEMOGLOBIN 11.7 g/dl (12.0-15.5); MEAN CORPUSCULAR HEMOGLOBIN 27.7 pg (27.0-33.0); MEAN CORPUSCULAR HGB CONC 32.3 g/dl (32.0-36.5); MEAN CORPUSCULAR VOLUME 85.6 fl (80.0-96.0); PLATELET COUNT, AUTOMATED 229 10^3/uL (150-450); RED BLOOD COUNT 4.23 10^6/uL (4.00-5.40); WHITE BLOOD COUNT 13.4 10^3/uL (4.0-10.0)
[2022-11-19] MEDS ORDERED: NITROGLYCERIN 0.4MG SUBL TABLET As Ordered ONE (03:31)
[2022-11-19] MEDS ORDERED: NITROGLYCERIN IN D5W 25MG/250ML (100MCG/ML) As Ordered ONE (03:33)
[2022-11-19] MEDS ORDERED: NITROGLYCERIN/D5W 100MCG/ML 25 MG in IV 1 EA IV SCH ×4 (03:35→17:05)
[2022-11-19 03:37] LABS: BLOOD UREA NITROGEN 23 MG/DL (9-23); CALCIUM LEVEL 8.7 MG/DL (8.3-10.6); CARBON DIOXIDE LEVEL 26 MMOL/L (20-31); CHLORIDE LEVEL 103 MMOL/L (98-107); CREATININE FOR GFR 0.73 MG/DL (0.55-1.30); GLOMERULAR FILTRATION RATE > 60.0 (>32); GLUCOSE, FASTING 135 MG/DL (74-106); POTASSIUM SERUM 3.8 MMOL/L (3.5-5.1); SODIUM LEVEL 140 MMOL/L (136-145)
[2022-11-19] MEDS ORDERED: PANTOPRAZOLE 40MG VIAL IV ONE (03:45)
[2022-11-19] MEDS ORDERED: METOPROLOL 5 MG/5 ML VIAL IV STA (04:01)
[2022-11-19] MEDS ORDERED: METOPROLOL TART 25 MG TABLET PO ONE (04:05)
[2022-11-19 05:33] LABS: ABG BASE EXCESS 4.1 (-2.0-2.0); ABG HCO3 27.6 MEQ/L (22.0-26.0); ABG O2 SATURATION 99.2 % (95.0-99.0); ABG PARTIAL PRESSURE CO2 37.3 mmHg (35.0-45.0); ABG PARTIAL PRESSURE O2 157.2 mmHg (75.0-100.0); ABG STANDARD HCO3 28.2 MEQ/L (22.0-26.0); ABG TOTAL CO2 28.7 MEQ/L (23.0-31.0); ABG pH (ARTERIAL) 7.487 UNITS (7.350-7.450)
[2022-11-19] MEDS: BUDESONIDE 0.5 MG/2 ML INHALATION SUSPENSION INH SCH ×2 (07:27→19:15)
[2022-11-19] MEDS: ALBUTEROL SULFATE 2.5MG/0.5ML INH NEB SOLN NEB SCH ×4 (07:27→19:15)
[2022-11-19] MEDS: ASPIRIN 81MG CHEW TABLET PO SCH (08:57)
[2022-11-19] MEDS: CALCIUM/VITAMIN D 500 MG TAB PO SCH (08:57)
[2022-11-19] MEDS: METOPROLOL TART 25 MG TABLET PO SCH ×2 (08:58→20:15)
[2022-11-19] MEDS: APIXABAN 2.5 MG TAB (ELIQUIS) PO SCH (08:58)
[2022-11-19] MEDS ORDERED: ACETAMINOPHEN TAB 650MG DOSE (2X325MG) PO ONE (15:10)
[2022-11-19] MEDS ORDERED: LevoFLOXacin IV 250 MG in IV 1 EA IV SCH (18:00)
[2022-11-19] MEDS ORDERED: CLOPIDOGREL 300 MG TAB (PLAVIX) PO STA (18:59)
[2022-11-19] MEDS ORDERED: ATORVASTATIN 20 MG TAB PO SCH (21:00)
[2022-11-20] VITALS (41 sets, daily range): BP systolic 104–233; BP diastolic 53–105; O2SAT 95
[2022-11-20] MEDS: methylPREDNISolone 40MG 1ML VIAL IV SCH ×2 (00:10→06:32)
[2022-11-20 04:51] LABS: BASO % 0.1 % (0.0-1.0); HEMATOCRIT 33.9 % (36.0-47.0); HEMOGLOBIN 10.6 g/dl (12.0-15.5); LYMPH # 0.9 10^3/uL (1.5-5.0); MEAN CORPUSCULAR HEMOGLOBIN 27.5 pg (27.0-33.0); MEAN CORPUSCULAR HGB CONC 31.3 g/dl (32.0-36.5); MEAN CORPUSCULAR VOLUME 87.8 fl (80.0-96.0); MONO # 0.4 10^3/uL (0.0-0.8); MONO % 1.9 % (2.0-8.0); NEUTROPHILS % 92.1 % (36.0-66.0); PLATELET COUNT, AUTOMATED 242 10^3/uL (150-450); RED BLOOD COUNT 3.86 10^6/uL (4.00-5.40); WHITE BLOOD COUNT 18.4 10^3/uL (4.0-10.0)
[2022-11-20 04:56] LABS: BLOOD UREA NITROGEN 37 MG/DL (9-23); CALCIUM LEVEL 8.7 MG/DL (8.3-10.6); CARBON DIOXIDE LEVEL 28 MMOL/L (20-31); CHLORIDE LEVEL 104 MMOL/L (98-107); CREATININE FOR GFR 0.86 MG/DL (0.55-1.30); GLOMERULAR FILTRATION RATE > 60.0 (>32); GLUCOSE, FASTING 159 MG/DL (74-106); PHOSPHORUS LEVEL 4.7 MG/DL (2.4-5.1); POTASSIUM SERUM 4.4 MMOL/L (3.5-5.1); SODIUM LEVEL 140 MMOL/L (136-145)
[2022-11-20 05:42] LABS: ABG BASE EXCESS 3.1 (-2.0-2.0); ABG HCO3 27.7 MEQ/L (22.0-26.0); ABG PARTIAL PRESSURE CO2 42.2 mmHg (35.0-45.0); ABG PARTIAL PRESSURE O2 113.8 mmHg (75.0-100.0); ABG STANDARD HCO3 27.3 MEQ/L (22.0-26.0); ABG pH (ARTERIAL) 7.435 UNITS (7.350-7.450)
[2022-11-20] MEDS ORDERED: MORPHINE 2 MG/ML 1ML VIAL IV PRN (07:30)
[2022-11-20] MEDS: BUDESONIDE 0.5 MG/2 ML INHALATION SUSPENSION INH SCH (08:15)
[2022-11-20] MEDS: METOPROLOL TART 25 MG TABLET PO SCH (08:20)
[2022-11-20] MEDS: CALCIUM/VITAMIN D 500 MG TAB PO SCH (08:20)
[2022-11-20] MEDS: ASPIRIN 81MG CHEW TABLET PO SCH (08:20)
[2022-11-20] MEDS ORDERED: PANTOPRAZOLE 40MG TAB (PROTONIX) PO SCH (09:00)
[2022-11-20] MEDS ORDERED: predniSONE 10 MG TAB PO SCH (09:00)
== END 2022-11-20 10:50 | disposition short-term general hospital (02) | DRG 280 ==
LOC: EDBD 14:57 → M ED 16:34 → M ED INP 17:10 → ENRESERV 18:25 → M ICU 18:52
PROVIDERS: ADMIT Internal Medicine; ATTEND Internal Medicine Pulmonary Disease
PROC: B246ZZZ Ultrasonography of Right and Left Heart (ICD-10-PCS; principal; 2022-11-18)
DX: I21.4 Non-ST elevation (NSTEMI) myocardial infarction (principal); J96.01 Acute respiratory failure with hypoxia; J96.02 Acute respiratory failure with hypercapnia; J45.901 Unspecified asthma with (acute) exacerbation; J81.1 Chronic pulmonary edema; I16.1 Hypertensive emergency; E78.5 Hyperlipidemia, unspecified; I48.0 Paroxysmal atrial fibrillation; I10 Essential (primary) hypertension; Z79.01 Long term (current) use of anticoagulants; Z79.899 Other long term (current) drug therapy; Z86.16 Personal history of COVID-19

== ENCOUNTER 2022-12-04 19:22 | Inpatient (IN) | payer MEDICARE ==
[~2022-12-04] VITALS: Ht 160 cm; Wt 58.0 kg
[~2022-12-04 19:22] MED LIST changes: +med rec comment
[2022-12-04] MEDS ORDERED: ROCURONIUM BROMIDE 50MG/5ML VIAL IV ONE (19:35)
[2022-12-04] MEDS ORDERED: ETOMIDATE INJ 20MG/10ML VIAL IV ONE (19:35)
[2022-12-04] MEDS ORDERED: ISOVUE-370 76% 100ML VIAL As Ordered ONE (19:43)
[2022-12-04 19:53] LABS: HEMATOCRIT 27.2 % (36.0-47.0); HEMOGLOBIN 8.1 g/dl (12.0-15.5); MEAN CORPUSCULAR HEMOGLOBIN 27.7 pg (27.0-33.0); MEAN CORPUSCULAR HGB CONC 29.8 g/dl (32.0-36.5); MEAN CORPUSCULAR VOLUME 93.2 fl (80.0-96.0); PLATELET COUNT, AUTOMATED 331 10^3/uL (150-450); RED BLOOD COUNT 2.92 10^6/uL (4.00-5.40); WHITE BLOOD COUNT 23.9 10^3/uL (4.0-10.0)
[2022-12-04] MEDS ORDERED: propofoL 1,000 MG in IV 1 EA IV SCH ×2 (20:05→23:00)
[2022-12-04 20:11] LABS: INR 1.12; PROTHROMBIN TIME 14.6 SECONDS (12.5-14.5)
[2022-12-04 20:25] LABS: RSV AMPLIFICATION NEGATIVE (NEGATIVE)
[2022-12-04 20:29] LABS: CK-MB VALUE MASS < 1.0 NG/ML (<3.6); LIPASE 33 U/L (12-53)
[2022-12-04 20:31] LABS: ALBUMIN 2.7 G/DL (3.2-5.2); ALKALINE PHOSPHATASE 229 U/L (46-116); ALT/SGPT 112 U/L (7.0-40); AST/SGOT 153 U/L (<34); BILIRUBIN,DIRECT 0.2 MG/DL (<0.4); BILIRUBIN,TOTAL 0.4 MG/DL (0.3-1.2); BLOOD UREA NITROGEN 17 MG/DL (9-23); CALCIUM LEVEL 7.4 MG/DL (8.3-10.6); CARBON DIOXIDE LEVEL 22 MMOL/L (20-31); CHLORIDE LEVEL 105 MMOL/L (98-107); CREATININE FOR GFR 1.03 MG/DL (0.55-1.30); GLOMERULAR FILTRATION RATE 54.7 (>32); GLUCOSE, FASTING 243 MG/DL (74-106); POTASSIUM SERUM 4.9 MMOL/L (3.5-5.1); SODIUM LEVEL 140 MMOL/L (136-145); TOTAL PROTEIN 5.1 G/DL (5.7-8.2)
[2022-12-04 20:33] LABS: CPK CREATINE PHOSPHOKINASE 69 U/L (34-145); MB/CK RELATIVE INDEX 1.44 (< OR =4)
[2022-12-04 20:37] LABS: ATYPICAL LYMPH 1 % (0-5); EOSINOPHILS 2 % (0-3); LYMPHOCYTES 21 % (16-44); METAMYELOCYTES 3 % (0-0); MONOCYTES 6 % (0-5); NEUTROPHILS 65 % (28-66)
[2022-12-04 20:38] LABS: ANISOCYTOSIS 1+; HYPOCHROMASIA 2+; OVALOCYTES 1+; PLATELET ESTIMATE NORMAL (NORMAL)
[2022-12-04 20:42] LABS: ABG BASE EXCESS -5.5 (-2.0-2.0); ABG HCO3 18.7 MEQ/L (22.0-26.0); ABG O2 SATURATION 98.7 % (95.0-99.0); ABG STANDARD HCO3 19.9 MEQ/L (22.0-26.0); ABG TOTAL CO2 19.6 MEQ/L (23.0-31.0); ABG pH (ARTERIAL) 7.398 UNITS (7.350-7.450)
[2022-12-04] MEDS ORDERED: LevoFLOXacin IV 750 MG in IV 1 EA IV ONE (21:00)
[2022-12-04] MEDS ORDERED: NS 1,800 ML in IV 1 EA IV ONE (21:10)
[2022-12-04 21:22] LABS: MB/CK RELATIVE INDEX 1.33 (< OR =4)
[2022-12-04] MEDS ORDERED: MED REC COMMENT (22:34)
[2022-12-04] MEDS ORDERED: VANCOMYCIN HCL 750 MG, VIAL MATE ADAPTER 1 EACH in NS 250 ML IV SCH (22:35)
[2022-12-04] MEDS ORDERED: GLUCAGON INJ 1MG VIAL SC PRN (22:35)
[2022-12-04] MEDS ORDERED: HEPARIN SOD (PORCINE) 5000UNITS/ML 1ML VIAL/SYRINGE IV PRN (22:35)
[2022-12-04] MEDS ORDERED: GLUCOSE 4GM CHEW TABLET PO PRN (22:35)
[2022-12-04] MEDS ORDERED: HEPARIN DRIP 25,000 UNITS in IV 1 EA IV SCH (22:35)
[2022-12-04] MEDS ORDERED: DEXTROSE 50% 50ML SYRINGE IV PRN (22:35)
[2022-12-04] MEDS ORDERED: ATOR40TA75 PO (22:36)
[2022-12-04] MEDS ORDERED: LISI10TA22 PO (22:36)
[2022-12-04] MEDS ORDERED: CLOP75TA2 PO (22:36)
[2022-12-04] MEDS ORDERED: NITR0.4S14 SL (22:36)
[2022-12-04] MEDS ORDERED: HOME MED LIST COMPLETE! XX SCH (22:40)
[2022-12-04] MEDS ORDERED: ROCURONIUM BROMIDE 50MG/5ML VIAL IV PRN (22:45)
[2022-12-04] MEDS ORDERED: VANCOMYCIN HCL 750 MG, VIAL MATE ADAPTER 1 EACH in D5W 250 ML IV ONE (23:00)
[2022-12-04] MEDS ORDERED: NS 1,000 ML IV SCH (23:00)
[2022-12-04] MEDS ORDERED: ACETAMINOPHEN 650MG SUPP PR PRN (23:35)
[2022-12-04] MEDS ORDERED: LACRILUBE (AKWA TEARS) OPHTH OINT 3.5GM OU PRN (23:35)
[2022-12-05] VITALS (10 sets, daily range): BP systolic 127–195; BP diastolic 62–98
[2022-12-05] MEDS ORDERED: INSULIN LISPRO (NovoLOG) PER UNIT SC SCH
[2022-12-05] MEDS ORDERED: VANCOMYCIN HCL 500 MG in D5W MINI-BAG PLUS 100 ML IV ONE ×2
[2022-12-05 00:40] LABS: ABG BASE EXCESS -1.2 (-2.0-2.0); ABG HCO3 23.4 MEQ/L (22.0-26.0); ABG O2 SATURATION 98.3 % (95.0-99.0); ABG PARTIAL PRESSURE CO2 38.9 mmHg (35.0-45.0); ABG PARTIAL PRESSURE O2 120.3 mmHg (75.0-100.0); ABG STANDARD HCO3 23.5 MEQ/L (22.0-26.0); ABG TOTAL CO2 24.6 MEQ/L (23.0-31.0); ABG pH (ARTERIAL) 7.398 UNITS (7.350-7.450)
[2022-12-05 00:47] LABS: HEMOGLOBIN 8.2 g/dl (12.0-15.5); MEAN CORPUSCULAR HEMOGLOBIN 27.5 pg (27.0-33.0); MEAN CORPUSCULAR HGB CONC 30.4 g/dl (32.0-36.5); MEAN CORPUSCULAR VOLUME 90.6 fl (80.0-96.0); RED BLOOD COUNT 2.98 10^6/uL (4.00-5.40); WHITE BLOOD COUNT 17.5 10^3/uL (4.0-10.0)
[2022-12-05 00:56] LABS: PLATELET COUNT, AUTOMATED 225 10^3/uL (150-450)
[2022-12-05] MEDS ORDERED: AZTREONAM 1 GM in D5W MINI-BAG PLUS 50 ML IV SCH (02:00)
[2022-12-05] MEDS ORDERED: PANTOPRAZOLE 40MG VIAL IV SCH (09:00)
[2022-12-05] MEDS ORDERED: CHLORHEXIDINE GLUCONATE 0.12 % 15ML UDC (PERIDEX ORAL RINSE) MT SCH (09:00)
[2022-12-05] MEDS ORDERED: LACRILUBE (AKWA TEARS) OPHTH OINT 3.5GM OU SCH (09:00)
== END 2022-12-05 02:54 | disposition short-term general hospital (02) | DRG 64 ==
LOC: M ED 19:22 → EDBD 19:22 → M ED INP 22:35 → M ICU 23:54 → UNDODISIN 12-05 02:48
PROVIDERS: ADMIT Internal Medicine Pulmonary Disease; ATTEND Internal Medicine
PROC: 0BH17EZ Insertion of Endotracheal Airway into Trachea, Via Natural or Artificial Opening (ICD-10-PCS; principal; 2022-12-04)
PROC: 5A1935Z Respiratory Ventilation, Less than 24 Consecutive Hours (ICD-10-PCS; 2022-12-04)
DX: I63.521 Cerebral infarction due to unspecified occlusion or stenosis of right anterior cerebral artery (principal); I21.4 Non-ST elevation (NSTEMI) myocardial infarction; G93.40 Encephalopathy, unspecified; I63.511 Cerebral infarction due to unspecified occlusion or stenosis of right middle cerebral artery; I63.531 Cerebral infarction due to unspecified occlusion or stenosis of right posterior cerebral artery; Z95.5 Presence of coronary angioplasty implant and graft; Z79.01 Long term (current) use of anticoagulants; Z79.899 Other long term (current) drug therapy; Z88.0 Allergy status to penicillin